=== PATIENT | male | born 1945 | race Caucasian/White ===

== ENCOUNTER 2019-06-01 11:06 | Outpatient (REF) | payer MEDICARE, SELFPAY ==
[2019-06-01 18:54] LABS: ALT 32 U/L (16-63); AST 23 U/L (15-37); Albumin 3.9 g/dL (3.4-5.0); Alkaline Phosphatase 62 U/L (46-116); Anion Gap 11.6 mmol/L (3-11); BUN 11 mg/dL (7-18); Bilirubin, Total 0.7 mg/dL (0.2-1.0); CO2 24.4 mmol/L (21.0-32.0); CREATININE 0.73 mg/dL (0.70-1.30); Calcium 8.9 mg/dL (8.5-10.1); Calculated LDL 95 mg/dL; Chloride 104 mmol/L (98-107); Cholesterol 168 mg/dL (50-200); Glucose 163 mg/dL (70-100); HDL Cholesterol 50 mg/dL (40-60); Potassium 3.6 mmol/L (3.5-5.1); Sodium 140 mmol/L (136-145); Total Protein 6.8 g/dL (6.4-8.2); Triglyceride 117 mg/dL (30-150)
== END 2019-06-01 11:26 ==
LOC: NCHCN 11:06
PROVIDERS: PCP Physician Assistant Medical; Visit Provider Nurse Practitioner
DX: I10 Essential (primary) hypertension (principal); E78.5 Hyperlipidemia, unspecified; I48.0 Paroxysmal atrial fibrillation
CPT/HCPCS: 80053; 80061

== ENCOUNTER 2019-09-18 17:36 | Emergency (ER) | payer MEDICARE, SELFPAY ==
[2019-09-18 17:42] VITALS: BP 163/97; PULSE 79; TEMP 36.5; O2SAT 97
--- NOTE | 2019-09-18 18:32 | DI.RAD_ITS ---
EXAM: XR KNEE LT 4V AP,LAT,HIRA,PAT INDICATION: s/p twist L knee, r/o acute process. COMPARISON: No exams were available for comparison TECHNIQUE: 2D digital imaging was performed. FINDINGS: There is no acute fracture or dislocation. Mild degenerative changes are seen in the knee, particular ly at the patellofemoral joint. There is a large suprapatellar joint effusion. Extensive arterial c alcification is noted. IMPRESSION: 1. No acute fracture or dislocation. 2. Large joint effusion. Internal derangement cannot be excluded. If there is continued concern, an MRI should be considered.
[2019-09-18] MEDS: traMADol 50 MG TAB PO (18:47)
--- NOTE | 2019-09-18 18:52 | ED.GENADUL_ITS ---
Discharge Plan Disposition Patient Disposition: HOME Condition: Stable Discharge Details Chief Complaint: Vascular Clinical Impression: Effusion of left knee Primary Care Provider: Marleny Reyes ED Provider: Kiara Carrasco Home Meds and New Rx's Prescriptions: New tramadol 50 mg tablet 50 mg PO Q6H PRN (Reason: pain) Qty: 10 RF: 0 Continued acetaminophen [Tylenol] 325 MG tablet 325 - 650 mg PO PRN RF: 0 tramadol 50 MG tablet 50 mg PO RF: 0 tamsulosin 0.4 MG capsule 0.4 mg PO DAILY RF: 0 amlodipine 10 MG tablet 10 mg PO DAILY RF: 0 gemfibrozil 600 MG tablet 600 mg PO BID RF: 0 simvastatin 20 MG tablet 20 mg PO DAILY RF: 0 gabapentin 300 MG capsule 300 mg PO BID RF: 0 furosemide 20 MG tablet 20 mg PO PRN RF: 0 cilostazol [Pletal] 50 MG tablet 50 mg PO BID RF: 0 metoprolol tartrate 50 MG tablet 75 mg PO BID RF: 0 hydrochlorothiazide 25 MG tablet 25 mg PO DAILY RF: 0 lorazepam 1 MG tablet 1 mg PO PRN PRNRF: 0 warfarin [Coumadin] 1 MG tablet 5 mg PO .6 DAYS RF: 0 naproxen 500 MG tablet 500 mg PO PRN PRNRF: 0 omega-3 fatty acids 1,000 MG capsule 2,000 mg PO BID RF: 0 esomeprazole magnesium [Nexium] 40 MG capsule,delayed release(DR/EC) 40 mg PO DAILY RF: 0 Discharge Instructions Instructions: Knee Sprain (ED), Swollen Knee Joint (ED) Additional Instructions: Rest, ice and elevate left knee as much as possible. Use the crutches for ambulation. Alternate Tylenol and Motrin as needed and directed for pain. Take the tramadol for pain not relieved with Tylenol or Motrin. Call Dr. Freitas's office on Friday morning to schedule follow-up appointment for reevaluation. Return to the emergency department if you develop any worsening or concerning symptoms such as fever, knee redness, worsening pain or swelling. Referrals: Carlin Freitas MD [ [facility] STAFF PHYSICIAN] - Discharge Data Discharge Date/Time-TO BE ENTERED AT DEPARTURE: 09/18/19 20:10 Discharge Physician: Kiara Carrasco Medical Decision Making 73-year-old male presents with left knee pain that started after wearing lifts in his sneakers today. Patient states he is unsure if he twisted his left knee but does not recall a specific injury. He states shortly after wearing a lift in his sneakers he developed left knee pain. He states the pain is worse with weightbearing and bending his knee. He has not taken any medication for pain. He denies any fever. Left knee reveals suprapatellar tenderness and edema, without bogginess, erythema or excessive warmth to touch. He has significant pain with knee flexion to approximately 30 degrees. There is no ligamentous laxity or instability. No calf tenderness. Neurovascular intact. History and presentation not consistent with septic joint or DVT. Left knee x- ray large did a large joint effusion. An dwight wrap was placed and patient was given crutches. He was offered a dose of oxycodone but declined due to previous reaction. He was given tramadol with some relief as well as prescription for home. Patient was placed on orthopedic follow-up list. He was advised on the importance of rice. He was advised to call Ortho for follow-up and return here with any concerns. Imaging Data Radiologic Study: Radiologist's impression: XR Left Knee Exam date and time: 09/18/2019 6:44 PM Age: 73 years old Clinical indication: Pain; Left; Patient HX: Twisted L knee; Additional info: R/O acute process TECHNIQUE: Imaging protocol: XR Left knee. Views: 4 or more views. COMPARISON: No relevant prior studies available. FINDINGS: Bones/joints: No dislocation. Large joint effusion. Internal derangement is not excluded. Consider MRI for further evaluation. No definite fracture identified. Soft tissues: Normal. Vasculature: Atherosclerosis. IMPRESSION: Large joint effusion. Internal derangement is not excluded. Consider MRI for further evaluation. HPI General Mode of arrival: ambulatory . Date/Time Provider Initiated Documentation: 09/18/19 18:08 . Limitations to Documentation: no limitations . Information obtained by: patient . History of Present Illness 73 year old M presents to the emergency department with the chief complaint of Left knee pain, Patient started experiencing this hour(s) (1) and it has been constant. Rest improves symptom(s), Movement worsens symptoms and Other factors that wo rsen symptoms (Flexion) . Patient notes denies fever/chills, headaches and loss of appetite. Patient did receive the following treatments prior to arrival, none Related Data Home Medications Medication Instructions Recorded Confirmed cilostazol [Pletal] 50 mg PO BID 02/08/13 06/20/13 hydrochlorothiazide 25 mg PO DAILY 02/08/13 06/20/13 lorazepam 1 mg PO PRN PRN 02/08/13 06/20/13 metoprolol tartrate 75 mg PO BID 02/08/13 06/20/13 naproxen 500 mg PO PRN PRN 02/08/13 06/20/13 warfarin [Coumadin] 5 mg PO .6 DAYS 02/08/13 06/20/13 esomeprazole magnesium [Nexium] 40 mg PO DAILY 06/20/13 06/20/13 omega-3 fatty acids 2,000 mg PO BID 06/20/13 06/20/13 acetaminophen [Tylenol] 325 - 650 mg PO PRN tab-cap 06/26/15 amlodipine 10 mg PO DAILY tab-cap 06/26/15 tamsulosin 0.4 mg PO DAILY tab-cap 06/26/15 tramadol 50 mg PO tab-cap 06/26/15 furosemide 20 mg PO PRN 10/13/17 gabapentin 300 mg PO BID tab-cap 10/13/17 gemfibrozil 600 mg PO BID tab-cap 10/13/17 simvastatin 20 mg PO DAILY tab-cap 10/13/17 tramadol 50 mg PO Q6H PRN #10 tab 09/18/19 Previous Rx's Medication Instructions Recorded tramadol 50 mg PO Q6H PRN #10 tab 09/18/19 Allergies Allergy/AdvReac Type Severity Reaction Status Date / Time escitalopram oxalate AdvReac Severe suidial Unverified 12/01/17 14:14 [From Lexapro] ideations General Stated Complaint: Vascular LANA: 3 Review of Systems All systems reviewed & are unremarkable except as noted in HPI and below PFSH Medical History Atrial fibrillation (Chronic) GERD (gastroesophageal reflux disease) (Chronic) HTN (hypertension) (Chronic) Hx of hyperlipidemia (Acute) Osteoarthritis (Chronic) Peripheral vascular disease (Chronic) Surgical History History of surgery on extremity (Acute) bypass/vascular Social History Smoking/Tobacco Use Status: Former Tobacco Use Drug use: Never Do you feel safe at home: Yes Exam Const General: cooperative, healthy appearing and no acute distress HENMT Head: normal to inspection Mouth: oral mucosae normal Eyes General: appearance normal, both eyes and all related structures Neck Neck: normal visual inspection Resp Effort & Inspection: normal respiratory effort and able to speak in complete sentences Cardio Rate: regular rate Skin General skin exam: no rashes or lesions noted Neuro General: alert, awake and oriented x3 Motor: muscle tone normal throughout Extrem Knee images: 1. Moderate suprapatellar edema. No tenderness to palpation. No erythema, ecchymosis, rash, lesions. Does not feel hot to touch in comparison to right knee. No rash or lesions. Psych Appearance: grossly normal Affect: normal affect Course Vital Signs Vital signs: Vital Signs Temperature 97.7 F 09/18/19 17:42 Pulse 79 09/18/19 17:42 Blood Pressure 163/97 H 09/18/19 17:42 Pulse Oximetry 97 09/18/19 17:42 Temperature 97.7 F 09/18/19 17:42 Temperature Source Skin 09/18/19 17:42 Pulse 79 09/18/19 17:42 Respiratory Effort 09/18/19 18:04 Respiratory Depth Normal 09/18/19 18:04 Respiratory Pattern Normal 09/18/19 18:04 Blood Pressure 163/97 H 09/18/19 17:42 Blood Pressure Position Supine 09/18/19 17:42 Pulse Oximetry 97 09/18/19 17:42 Oxygen Delivery Method Room Air 09/18/19 17:42 Oxygen Flow Rate 0 09/18/19 17:42 Pain Level 8 09/18/19 18:04
--- NOTE | 2019-09-18 19:05 | DI.VRAD_ITS ---
PROCEDURE INFORMATION: Exam: XR Left Knee Exam date and time: 09/18/2019 6:44 PM Age: 73 years old Clinical indication: Pain; Left; Patient HX: Twisted L knee; Additional info: R/O acute process TECHNIQUE: Imaging protocol: XR Left knee. Views: 4 or more views. COMPARISON: No relevant prior studies available. FINDINGS: Bones/joints: No dislocation. Large joint effusion. Internal derangement is not excluded. Consider MRI for further evaluation. No definite fracture identified. Soft tissues: Normal. Vasculature: Atherosclerosis. IMPRESSION: Large joint effusion. Internal derangement is not excluded. Consider MRI for further evaluation. Dictated and Authenticated by: Ashley Butler MD. Ordering:PARADISE Craig MD
[2019-09-18] MEDS: oxyCODONE 5 MG TAB PO (19:48)
[2019-09-18 20:07] VITALS: BP 132/78; PULSE 89; RESP 18; TEMP 37.2; O2SAT 99
== END 2019-09-18 20:10 | disposition home or self-care (01) ==
PROVIDERS: Emergency Provider Physician Assistant; PCP Physician Assistant Medical
DX: M25.462 Effusion, left knee (principal); M25.562 Pain in left knee; I10 Essential (primary) hypertension
CPT/HCPCS: 99283; 73564; E0114

== ENCOUNTER → 2019-09-29 10:23 | Outpatient (BNVA) | payer MEDICARE, SELFPAY | PROVIDERS: PCP Physician Assistant Medical; Referring Provider Nurse Practitioner; Visit Provider Orthopaedic Surgery | DX: M23.92 Unspecified internal derangement of left knee (principal) | CPT/HCPCS: 99201; 99213 ==

== ENCOUNTER 2020-01-10 10:30 | Outpatient (CLI) | payer MEDICARE, SELFPAY | END 2020-01-10 10:50 | PROVIDERS: PCP Nurse Practitioner; Visit Provider Internal Medicine Cardiovascular Disease | DX: I48.20 Chronic atrial fibrillation, unspecified (principal); I73.9 Peripheral vascular disease, unspecified; I10 Essential (primary) hypertension | CPT/HCPCS: 99203; 99214; 93005; 93010 ==

== ENCOUNTER 2020-01-19 02:00 | Outpatient (CLI) | payer MEDICARE, SELFPAY ==
--- NOTE | 2020-01-19 12:33 | DI.US_ITS ---
APPROVED REPORT EXAM: Comprehensive 2D, Doppler, and color-flow Echocardiogram Patient Location: Out-Patient Medical Detail Representative: Jesusita Maldonado RDCS (AE) Indications: Atrial Fibrillation Echo Enhancing Agent Indication: Endocardial border delineation Agent(s) / Amount(s) Used: Definity 4.0 cc Other Information Study Quality: Adequate Conclusion Left Ventricle : The left ventricle is normal size. Apical aneurysm is present. The left ventricular systolic function is normal. The left ventricular ejection fraction is within the normal range. Left ventricular systolic function is mildly decreased. There is normal left ventricular wall thickness. There is akinesis of the apex associated with aneurysm. The left ventricular diastolic function is n ormal. LVEF is 40-44%. Right Ventricle : The right ventricle is normal size. The right ventricular systolic function is norm al. The RVSP is 37.7 mmHg. Atria : Left atrium is mildly dilated. Right atrium is mildly dilated. Valves: There are no hemodynamically significant valvular lesions. Great Vessels : IVC is normal in size and collapses >50% with inspiration. There is no prior echocardiogram available for comparison. Wall motion Left Ventricle The left ventricle is normal size. Apical aneurysm is present. The left ventricular systolic function is normal. The left ventricular ejection fraction is within the normal range. Left ventricular systo lic function is mildly decreased. There is normal left ventricular wall thickness. There is akinesis of the apex associated with aneurysm. The left ventricular diastolic function is normal. There is no ventricular septal defect visualized. Echo contrast is indicated. LVEF is 40-44%. Right Ventricle The right ventricle is normal size. The right ventricular systolic function is normal. The RVSP is 37 .7 mmHg. Atria Left atrium is mildly dilated. Right atrium is mildly dilated. Aortic Valve Aortic valve is calcified. Aortic valve is probably trileaflet. There is no aortic valvular stenosis. Trace aortic regurgitation. Mitral Valve Moderate mitral annular calcification. No evidence of mitral valve stenosis. Trace mitral regurgitati on. Tricuspid Valve The tricuspid valve is normal in structure. There is no tricuspid valve stenosis. Mild to moderate tr icuspid regurgitation. Pulmonic Valve The pulmonary valve is normal in structure. There is no pulmonic valvular stenosis. Mild pulmonic reg urgitation. Great Vessels The aortic root is normal in size. The ascending aorta is normal in size. The ascending aorta size is normal. IVC is normal in size and collapses >50% with inspiration. Pericardium There is no pericardial effusion. There is no pleural effusion. 2D Dimensions IVSD d PLAX 1.16 cm M: 0.6-1.2 LV Vol A2C d MOD 99.0 mL LVPW d PLAX 1.12 cm M: 0.6 - 1.2 LV Vol A4C d MOD 70.4 mL LVID d PLAX 4.41 cm M: 4.2 - 5.8 LA vol/ BSA A2C s A-L 34.2 mL/m2 LVDs 2.90 cm M: 2.5 - 4.0 LA vol/ BSA A4C s A-L 41.8 mL/m2 Ao Root d 3.02 cm M: 3.1 - 3.7 LA Vol/ BSA Biplane s A-L 41.0 mL/m2 RA Area A4C 21.05 cm2 LA Area A4C s MOD 24.40 cm2 RA Vol/ BSA A4C s A-L 33.6 mL/m2 LA Area A2C s MOD 20.39 cm2 Ao Asc Diam d 3.29 cm M: 2.6 - 3.4 LV EF A4C MOD 44.6 % LV EF Teichholz 62.8 % LV EF A2C MOD 45.5 % LVEF (Godwin's) 41.62 % M: 52 - 72 LV EF Biplane MOD 41.6 % LV Volume 65.93 mL M: 62 - 150 SV 55.30 mL LV Volume Index 34.70 mL/m2 M: 34 - 74 SV Index 29.10 mL/m2 LV Vol Biplane MOD 86.4 mL FS 33.75 % M-Mode TAPSE 1.79 cm (M/F) >1.7 LV Diastology MV E' medial 0.081 (>0.07 m/s) MV E Vmax 1.09 (0.4-1.3 m/s) LV E/e MED 13.35 (<14) MV E' lateral 0.112 (>0.1 m/s) LV E/e LAT 9.65 (<14) MV E/E' medial 13.37 MV E/E' lateral 9.69 Aortic Valve LVOT Area 2.91 cm2 AoV Area Vmax 2.09 cm2 LVOT Vmax 0.90 m/s AoV Area/ BSA (Vmax) 1.10 cm2/m2 LVOT Mean Ivan. 0.58 m/s [place] Mean Ivan. 1.89 cm2 LVOT Peak Grad 3.3 mmHg [place] Mean Ivan. Index 1.00 cm2/m2 LVOT Mean Grad 1.6 mmHg LVOT VTI 0.191 m LVOT Diam s 1.90 cm (M/F) 1.5-2.5 AoV Vmax 1.25 (0.5-1.3 m/s) Velocity Ratio 0.72 AoV Mean Ivan. 0.89 m/s AoV Peak Grad 6.3 mmHg LVOT SV 55.57 mL AoV Mean Grad 3.5 (<5 mmHg) AoV VTI 0.261 (0.18-0.25 m) AoV Area VTI 2.13 (2.5-4.5 cm2) AoV Area/ BSA (VTI) 1.12 cm/m2 Mitral Valve MV DT 202 (160-240 msec) MV PHT 58 msec MV Area PHT 3.76 cm2 Pulmonary Valve PV Vmax 0.80 (0.5-1.5 m/s) RVOT Peak Gr. 0.96 mmHg PV Peak Grad 2.6 mmHg RVOT Mean Gr. 0.55 mmHg PV Mean Grad 1.1 mmHg RVOT VTI 0.118 m PV VTI 0.135 m RVOT Vmax 0.49 m/s Tricuspid Valve TR Peak Grad 34.7 mmHg TR Vmax 2.95 m/s RA Pressure 3.00 mmHg RVSP (TR) 37.7 mmHg
== END 2020-01-19 02:20 ==
PROVIDERS: PCP Nurse Practitioner; Visit Provider Internal Medicine Cardiovascular Disease
DX: I48.91 Unspecified atrial fibrillation (principal); I50.20 Unspecified systolic (congestive) heart failure; I10 Essential (primary) hypertension
CPT/HCPCS: 93306; C8929

== ENCOUNTER → 2020-05-17 10:37 | Outpatient (BNVA) | payer MEDICARE, SELFPAY | PROVIDERS: PCP Nurse Practitioner; Referring Provider Nurse Practitioner; Visit Provider Orthopaedic Surgery | DX: M23.92 Unspecified internal derangement of left knee (principal); I10 Essential (primary) hypertension | CPT/HCPCS: 20610; 99213; J1040 ==

== ENCOUNTER 2020-05-19 15:37 | Outpatient (RCR) | payer MEDICARE, SELFPAY | END 2020-06-07 23:59 | disposition home or self-care (01) | LOC: CR 15:37 | PROVIDERS: PCP Nurse Practitioner; Visit Provider Family Medicine | DX: R69 Illness, unspecified (principal) ==

== ENCOUNTER 2020-05-22 11:12 | Outpatient (CLI) | payer MEDICARE, SELFPAY ==
[2020-05-23 23:57] LABS: COVID-19 RT-PCR Result NEGATIVE (Negative)
== END 2020-05-22 11:32 ==
PROVIDERS: PCP Nurse Practitioner; Visit Provider Family Medicine
DX: Z11.59 Encounter for screening for other viral diseases (principal); Z01.818 Encounter for other preprocedural examination
CPT/HCPCS: U0003

== ENCOUNTER → 2020-05-30 08:57 | Outpatient (BNVA) | payer MEDICARE, SELFPAY | PROVIDERS: PCP Nurse Practitioner; Referring Provider Nurse Practitioner; Visit Provider Internal Medicine Cardiovascular Disease | DX: I25.10 Atherosclerotic heart disease of native coronary artery without angina pectoris (principal); I10 Essential (primary) hypertension; I48.19 Other persistent atrial fibrillation; Z98.890 Other specified postprocedural states | CPT/HCPCS: 99214 ==

== ENCOUNTER 2020-06-01 10:07 | Outpatient (REF) | payer MEDICARE, SELFPAY ==
[2020-06-01 19:57] LABS: ALT 25 U/L (16-63); AST 19 U/L (15-37); Albumin 3.9 g/dL (3.4-5.0); Alkaline Phosphatase 79 U/L (46-116); Anion Gap 7.5 mmol/L (3-11); BUN 10 mg/dL (7-18); Bilirubin, Total 0.6 mg/dL (0.2-1.0); CO2 28.5 mmol/L (21.0-32.0); CREATININE 0.71 mg/dL (0.70-1.30); Calcium 9.1 mg/dL (8.5-10.1); Calculated LDL 88 mg/dL (<100); Chloride 106 mmol/L (98-107); Cholesterol 162 mg/dL (<200); Glucose 112 mg/dL (74-106); HDL Cholesterol 55 mg/dL (40-60); Sodium 142 mmol/L (136-145); Total Protein 6.9 g/dL (6.4-8.2); Triglyceride 95 mg/dL (<150)
[2020-06-02 22:14] LABS: PSA, Screening 0.6 ng/mL (0.0-6.5)
[2020-06-05 12:05] LABS: Hepatitis C Ab w Rflx HCV PCR Negative (Negative)
== END 2020-06-01 10:27 ==
LOC: NCHCN 10:07
PROVIDERS: PCP Nurse Practitioner; Visit Provider Nurse Practitioner
DX: I10 Essential (primary) hypertension (principal); E78.5 Hyperlipidemia, unspecified; I25.10 Atherosclerotic heart disease of native coronary artery without angina pectoris; Z12.5 Encounter for screening for malignant neoplasm of prostate; Z11.59 Encounter for screening for other viral diseases
CPT/HCPCS: 80053; 80061; 84153; 86803

== ENCOUNTER 2020-06-07 13:17 | Outpatient (RCR) | payer MEDICARE, SELFPAY | END 2020-06-07 23:59 | disposition home or self-care (01) | LOC: CR 13:17 | PROVIDERS: PCP Nurse Practitioner; Visit Provider Family Medicine | DX: Z95.1 Presence of aortocoronary bypass graft (principal); Z51.89 Encounter for other specified aftercare; Z98.890 Other specified postprocedural states | CPT/HCPCS: S9472 ==

== ENCOUNTER → 2020-07-05 09:53 | Outpatient (BNVA) | payer MEDICARE, SELFPAY | PROVIDERS: PCP Nurse Practitioner; Referring Provider Nurse Practitioner; Visit Provider Orthopaedic Surgery | DX: M23.92 Unspecified internal derangement of left knee (principal); Z98.890 Other specified postprocedural states; I10 Essential (primary) hypertension | CPT/HCPCS: 99212; 99213 ==

== ENCOUNTER 2020-07-05 11:00 | Outpatient (RCR) | payer MEDICARE, SELFPAY | END 2020-07-08 23:59 | disposition home or self-care (01) | LOC: CR 11:00 | PROVIDERS: PCP Nurse Practitioner; Visit Provider Family Medicine | DX: Z95.1 Presence of aortocoronary bypass graft (principal); Z51.89 Encounter for other specified aftercare; I25.3 Aneurysm of heart | CPT/HCPCS: S9472 ==

== ENCOUNTER 2020-07-14 11:00 | Outpatient (RCR) | payer MEDICARE, SELFPAY | END 2020-08-07 23:59 | disposition home or self-care (01) | LOC: CR 11:00 | PROVIDERS: PCP Nurse Practitioner; Visit Provider Family Medicine | DX: Z95.1 Presence of aortocoronary bypass graft (principal); Z51.89 Encounter for other specified aftercare; I25.3 Aneurysm of heart | CPT/HCPCS: S9472 ==

== ENCOUNTER → 2020-07-24 10:05 | Outpatient (BNVA) | payer MEDICARE, SELFPAY | PROVIDERS: PCP Nurse Practitioner; Referring Provider Nurse Practitioner; Visit Provider Internal Medicine Cardiovascular Disease | DX: I25.10 Atherosclerotic heart disease of native coronary artery without angina pectoris (principal); I10 Essential (primary) hypertension; I48.91 Unspecified atrial fibrillation | CPT/HCPCS: 99213 ==

== ENCOUNTER → 2020-09-28 10:50 | Outpatient (BNVA) | payer MEDICARE, SELFPAY | PROVIDERS: PCP Nurse Practitioner; Referring Provider Nurse Practitioner; Visit Provider Internal Medicine Cardiovascular Disease | DX: I25.10 Atherosclerotic heart disease of native coronary artery without angina pectoris (principal); I73.9 Peripheral vascular disease, unspecified; I10 Essential (primary) hypertension; I48.91 Unspecified atrial fibrillation | CPT/HCPCS: 99213 ==

== ENCOUNTER 2020-11-23 12:49 | Outpatient (CLI) | payer MEDICARE, SELFPAY ==
--- NOTE | 2020-11-23 10:15 | DI.RAD_ITS ---
EXAM: XR FOOT LT COMPLETE CLINICAL HISTORY: foot pain. TECHNIQUE: 2D digital imaging was performed. COMPARISON: CR RIGHT FOOT LIMITED from 12/23/2013 CR LEFT FOOT LIMITED from 12/23/2013 CR XR FOOT RT COMPLETE from 11/23/2020 FINDINGS: Three views of the left foot compared to December 2013. Again noted is prominent hallux valgus. There is a healed midshaft fracture of the 3rd metatarsal ag ain noted. No acute fractures nor diastasis of the Lisfranc joint. Vascular calcification is noted. IMPRESSION: DATA REPOSITORY: RADIATION DOSE DELIVERED:
--- NOTE | 2020-11-23 10:15 | DI.RAD_ITS ---
EXAM: XR FOOT RT COMPLETE CLINICAL HISTORY: foot pain. TECHNIQUE: 2D digital imaging was performed. COMPARISON: CR RIGHT FOOT LIMITED from 12/23/2013 FINDINGS: Three views compared to December 2013 Again noted is prominent hallux valgus and medial deviation of the 2nd toe phalanges with subluxation of the metatarsophalangeal joint of the 2nd toe noted. There is no evidence of fracture or diastasis of the Lisfranc joint. Vascular calcification is noted . IMPRESSION: DATA REPOSITORY: RADIATION DOSE DELIVERED:
== END 2020-11-23 12:50 | disposition home or self-care (01) ==
LOC: DIORS 12:49
PROVIDERS: PCP Nurse Practitioner; Referring Provider Nurse Practitioner; Visit Provider Student in an Organized Health Care Education/Training Program
DX: M20.11 Hallux valgus (acquired), right foot (principal); M20.12 Hallux valgus (acquired), left foot; Z87.81 Personal history of (healed) traumatic fracture; M79.671 Pain in right foot; M79.672 Pain in left foot
CPT/HCPCS: 99213; 73630

== ENCOUNTER → 2021-01-12 10:58 | Outpatient (BNVA) | payer MEDICARE, SELFPAY | PROVIDERS: PCP Nurse Practitioner; Referring Provider Nurse Practitioner; Visit Provider Internal Medicine Cardiovascular Disease | DX: I25.10 Atherosclerotic heart disease of native coronary artery without angina pectoris (principal); I10 Essential (primary) hypertension; I48.21 Permanent atrial fibrillation | CPT/HCPCS: 99214; 99213 ==

== ENCOUNTER 2021-02-01 09:26 | Outpatient (REF) | payer MEDICARE, SELFPAY ==
[2021-02-01 15:26] LABS: Abs Immature Grans 0.02 10^3/uL (0.0-0.06); Absolute Basophil Count 0.07 10^3/uL (0.0-0.2); Absolute Eosinophil Count 0.28 10^3/uL (0.0-0.7); Absolute Lymphocyte Count 1.67 10^3/uL (1.2-3.4); Absolute Monocyte Count 0.66 10^3/uL (0.1-0.8); Absolute Neutrophil Count 4.32 10^3/uL (1.2-6.7); HCT 40.9 % (40.0-50.0); Immature Grans % 0.3; Lymphocytes % 23.8; MCH 31.7 pg (27.0-33.0); MCHC 34.2 % (32.0-36.0); MCV 92.7 fL (80-95); MPV 10.2 fL (8.0-11.0); Monocytes % 9.4; Neutrophils % 61.5; Nucleated RBC 0 %; Platelet Count 263 10^3/uL (130-400); RBC 4.41 10^6/uL (4.36-5.78); RDW 13.2 % (11.8-14.1); RDW-SD 45.6 fL; WBC 7.02 10^3/uL (4.4-10.8)
[2021-02-01 17:08] LABS: ALT 22 U/L (16-63); AST 22 U/L (15-37); Alkaline Phosphatase 84 U/L (46-116); Anion Gap 13.7 mmol/L (3-11); BUN 11 mg/dL (7-18); Bilirubin, Total 0.7 mg/dL (0.2-1.0); CO2 23.3 mmol/L (21.0-32.0); CREATININE 0.9 mg/dL (0.70-1.30); Chloride 107 mmol/L (98-107); Glucose 113 mg/dL (74-106); Potassium 4.4 mmol/L (3.5-5.1); Sodium 144 mmol/L (136-145)
== END 2021-02-01 09:27 | disposition home or self-care (01) ==
LOC: NCHCN 09:26
PROVIDERS: PCP Nurse Practitioner; Visit Provider Nurse Practitioner
DX: R10.2 Pelvic and perineal pain (principal); R10.9 Unspecified abdominal pain
CPT/HCPCS: 80053; 85025

== ENCOUNTER 2021-02-12 02:25 | Outpatient (CLI) | payer MEDICARE, SELFPAY ==
--- NOTE | 2021-02-12 | DI.CT_ITS ---
Exam(s) CT ABDOMEN PELVIS W EXAM: CT ABDOMEN PELVIS W CLINICAL HISTORY: PELVIC PAIN, R10.2,ABD PAIN, R10.9 TECHNIQUE: Imaging Protocol: Axial computed tomography images with coronal and sagittal reformatted images were created and reviewed CONTRAST MATERIAL: Intravenous: Omnipaque 350 Contrast volume:100 mL Oral: Yes COMPARISON: No exams were available for comparison FINDINGS: ABDOMEN: Lung Bases: Bilateral basilar scarring or atelectasis. Small hiatal hernia. Coronary artery calcifi cations. Mild cardiomegaly. Liver: Normal density. No measurable mass. There is a tiny hypodensity in the liver. It is too small for further characterization, but likely reflects a small cyst. Portal, Superior Mesenteric, and Splenic Veins: Unremarkable. Gallbladder and Biliary Tract: No radiodense calculus or dilation. Pancreas: Normal density, no abnormal calcifications or inflammatory process. Spleen: Normal. Adrenals: There is a 1.5 cm right adrenal nodule. Kidneys: Normal size, contour and axis. No radiodense stones or obstructive uropathy. There are tiny hypodensities in the kidneys bilaterally. They are too small for further characterization, but likel y reflect small cysts. No further follow-up is recommended. Abdominal Aorta: Abdominal portion non-dilated. Dense atherosclerosis is noted. There is a 3.9 x 3.3 cm infrarenal abdominal aortic aneurysm. There is a 2nd aneurysm in the distal abdominal aorta just proximal to the bifurcation measuring 3.4 x 3.1 cm. There is a right iliac artery stent. Bowel: No evidence of bowel obstruction. A normal appendix is visualized. There is mild thickening of the wall of the distal stomach. An infectious or inflammatory gastritis cannot be excluded. Plea se correlate clinically. There is diverticulosis throughout the colon but no evidence of acute diver ticulitis. Peritoneal Cavity: No ascites, collection or mesenteric inflammatory response. No free air. Lymph Nodes: Within normal limits. Bones: Within normal limits for the patient's age. Soft Tissues: Unremarkable. PELVIS: Bladder: Symmetric distention, no gross wall thickening. Reproductive Organs: There is an enlarged prostate gland. Lymph Nodes: Within normal limits. Bones: Within normal limits for the patient's age. IMPRESSION: 1. Two infrarenal abdominal aortic aneurysms. The more superior measures 3.9 x 3.4 cm. The more dis jose daniel at the level of the bifurcation measures 3.4 x 3.1 cm. 2. Mild thickening of the wall of the distal stomach. While this may represent an infectious or infl ammatory gastritis, is other etiologies cannot be excluded. Please correlate clinically. 3. 1.5 cm right adrenal nodule. Follow-up with a non contrast CT of the abdomen or CT of the abdomen using the adrenal protocol is recommended. 4. Extensive colonic diverticulosis but no evidence of a diverticulitis. 5. Enlarged prostate gland. RADIATION DOSE DELIVERED: 802.93mGy.cm Total DLP DATA REPOSITORY: All CT scans at this facility are submitted to the National Radiology Data Registry (NRDR) Dose Index Registry (DIR) with the [employer] (A[employer]). RADIATION OPTIMIZATION: All CT scans at this facility use at least one of these dose optimization te chniques: automated exposure control; mA and/or kV adjustment per patient size (includes targeted exa ms where dose is matched to clinical indication); or iterative reconstruction.
[2021-02-12] MEDS: Breeza Beverage 473 ML BTL PO ×2 (09:13→09:14)
[2021-02-12] MEDS: Omnipaque 350 MG/ML 100 ML BTL IV (10:34)
[2021-02-12] MEDS: Normal Saline - Diluent 50 ML VIAL IV (10:35)
== END 2021-02-12 02:45 ==
PROVIDERS: PCP Nurse Practitioner; Visit Provider Nurse Practitioner
DX: R10.2 Pelvic and perineal pain (principal); R10.9 Unspecified abdominal pain; I71.4 Abdominal aortic aneurysm, without rupture; D35.01 Benign neoplasm of right adrenal gland; N40.0 Benign prostatic hyperplasia without lower urinary tract symptoms; K31.89 Other diseases of stomach and duodenum
CPT/HCPCS: 74177; J3490

== ENCOUNTER → 2021-03-01 10:56 | Outpatient (BNVA) | payer MEDICARE, SELFPAY | PROVIDERS: PCP Nurse Practitioner; Referring Provider Nurse Practitioner; Visit Provider Urology | DX: R10.2 Pelvic and perineal pain (principal); N40.1 Benign prostatic hyperplasia with lower urinary tract symptoms; Z98.890 Other specified postprocedural states | CPT/HCPCS: 81003; 99215; G2212 ==

== ENCOUNTER 2021-03-02 04:13 | Outpatient (CLI) | payer MEDICARE, SELFPAY ==
--- NOTE | 2021-03-02 08:00 | DI.CT_ITS ---
Exam(s) CT ABDOMEN PELVIS WO/W EXAM: CT ABDOMEN PELVIS WO/W TECHNIQUE: Imaging Protocol: Axial computed tomography images with coronal and sagittal reformatted images were created and reviewed CONTRAST MATERIAL: Intravenous: Omnipaque 350 Contrast volume:structured data in ml Contrast route:I V - Oral:yes / no COMPARISON: CT CT ABDOMEN PELVIS W from 02/12/2021 FINDINGS: ABDOMEN: Lung Bases: Mild basilar scarring versus atelectasis. Cardiomegaly. Coronary artery calcifications. Liver: Normal density. No measurable mass. Gallbladder and biliary tract: No radiodense calculus or dilation. Pancreas: Normal density, no abnormal calcifications or inflammatory process. Spleen: Normal. Kidneys: Normal size, contour and axis. No radiodense stones or obstructive uropathy. No masses seen. Tiny renal cysts. Adrenal glands: Noncontrast images demonstrate a circumscribed low-density, negative 15 Houn[place] u nits, consistent with an adenoma. Lymph nodes: Within normal limits. Abdominal Aorta: Abdominal aortic aneurysms and severe atherosclerotic changes, stable. PELVIS: Bladder: Symmetric distention, no gross wall thickening. Bowel: Diverticulosis, prominent throughout the colon. No diverticulitis. Normal appendix. No smal l bowel distension. Stomach is not well distended and not well evaluated. Peritoneal cavity: No ascites, collection or mesenteric inflammatory response. Bones: Degenerative disc changes. Reproductive organs: Enlarged prostate. IMPRESSION: 1.5 centimeter right adrenal nodule is consistent with an adenoma. RADIATION DOSE DELIVERED: Total DLP DATA REPOSITORY: All CT scans at this facility are submitted to the National Radiology Data Registry (NRDR) Dose Index Registry (DIR) with the [employer] (ACR). RADIATION OPTIMIZATION: All CT scans at this facility use at least one of these dose optimization te chniques: automated exposure control; mA and/or kV adjustment per patient size (includes targeted exa ms where dose is matched to clinical indication); or iterative reconstruction.
== END 2021-03-02 04:33 ==
PROVIDERS: PCP Nurse Practitioner; Visit Provider Nurse Practitioner
DX: E27.8 Other specified disorders of adrenal gland (principal); I71.4 Abdominal aortic aneurysm, without rupture
CPT/HCPCS: 74178

== ENCOUNTER → 2021-03-08 11:22 | Outpatient (BNVA) | payer MEDICARE, SELFPAY | PROVIDERS: PCP Nurse Practitioner; Referring Provider Nurse Practitioner; Visit Provider Surgery | DX: K21.9 Gastro-esophageal reflux disease without esophagitis (principal); R10.30 Lower abdominal pain, unspecified; I25.10 Atherosclerotic heart disease of native coronary artery without angina pectoris; I73.9 Peripheral vascular disease, unspecified; I10 Essential (primary) hypertension; I71.4 Abdominal aortic aneurysm, without rupture; Z98.890 Other specified postprocedural states | CPT/HCPCS: 99215; 99243 ==

== ENCOUNTER 2021-04-18 13:56 | Outpatient (CLI) | payer MEDICARE, SELFPAY ==
--- NOTE | 2021-04-18 13:30 | DI.RAD_ITS ---
Exam(s) XR HIP RT COMPLETE AP PELVIS EXAM: XR HIP RT COMPLETE AP PELVIS INDICATION: right anterior hip pain, M25.551. COMPARISON: CR BILATERAL HIPS ADULT from 11/12/2016 TECHNIQUE: 2D digital imaging was performed. FINDINGS: There is stable mild bilateral hip joint space narrowing and bilateral acetabular spurring. The femo ral heads appear intact. Degenerative changes are again noted at the lower lumbar spine. Prominent vascular calcifications and bilateral iliac stents are noted. IMPRESSION: Stable degenerative changes of both hips. DATA REPOSITORY: RADIATION DOSE DELIVERED:
== END 2021-04-18 14:16 ==
PROVIDERS: PCP Nurse Practitioner; Visit Provider Surgery
DX: M16.0 Bilateral primary osteoarthritis of hip (principal)
CPT/HCPCS: 73502

== ENCOUNTER → 2021-05-24 11:06 | Outpatient (BNVA) | payer MEDICARE, SELFPAY | PROVIDERS: PCP Nurse Practitioner; Referring Provider Nurse Practitioner; Visit Provider Internal Medicine Cardiovascular Disease | DX: I25.10 Atherosclerotic heart disease of native coronary artery without angina pectoris (principal); I48.21 Permanent atrial fibrillation; I73.9 Peripheral vascular disease, unspecified; I10 Essential (primary) hypertension; Z79.01 Long term (current) use of anticoagulants | CPT/HCPCS: 99214; 99213 ==

== ENCOUNTER → 2021-05-31 09:55 | Outpatient (BNVA) | payer MEDICARE, SELFPAY | PROVIDERS: PCP Nurse Practitioner; Referring Provider Nurse Practitioner; Visit Provider Surgery | DX: K21.9 Gastro-esophageal reflux disease without esophagitis (principal); R10.31 Right lower quadrant pain; Z86.39 Personal history of other endocrine, nutritional and metabolic disease; I25.3 Aneurysm of heart; I73.9 Peripheral vascular disease, unspecified; I10 Essential (primary) hypertension | CPT/HCPCS: 99212; 99214 ==

== ENCOUNTER 2021-06-04 02:52 | Outpatient (CLI) | payer MEDICARE, SELFPAY ==
[2021-06-04 10:33] LABS: Source Nasal/Nares
[2021-06-04 13:33] LABS: COVID-19 PCR Negative (Negative)
== END 2021-06-04 02:53 | disposition home or self-care (01) ==
LOC: LBO 02:53
PROVIDERS: PCP Nurse Practitioner; Visit Provider Surgery
DX: Z20.822 Contact with and (suspected) exposure to COVID-19 (principal); Z01.818 Encounter for other preprocedural examination
CPT/HCPCS: 87635

== ENCOUNTER 2021-06-05 07:57 | Day surgery (SDC) | payer MEDICARE, SELFPAY ==
--- NOTE | 2021-06-05 07:15 | ANES.PREOP_ITS ---
General Info Date of Service Date Performed: 06/05/21 Height: 5 ft 7 in Weight: 78.018 kg Body Mass Index (BMI): 26.9 Surgical Procedure: Operation Date: 06/05/21 09:35 Proposed Procedures Side Surgeon p Colonoscopy/Gastroscopy Patito Zamora, Meds Allergies and Home Medications Allergies Allergy/AdvReac Type Severity Reaction Status Date / Time chlorpheniramine Allergy Intermediate rash Verified 06/05/21 08:20 [From Tussionex] hydrocodone [From Tussionex] Allergy Mild rash Verified 06/05/21 08:20 oxycodone Allergy Verified 06/05/21 08:20 escitalopram oxalate AdvReac Severe suidial Verified 06/05/21 08:20 [From Lexapro] ideations tramadol AdvReac Mild Verified 06/05/21 08:20 Home Medication Medication Instructions Recorded lorazepam 1 mg PO PRN PRN 02/08/13 acetaminophen [Tylenol] 325 - 650 mg PO PRN tab-cap 06/26/15 tamsulosin 0.4 mg PO DAILY tab-cap 06/26/15 gemfibrozil 600 mg PO BID tab-cap 10/13/17 simvastatin 20 mg PO DAILY tab-cap 10/13/17 cholecalciferol (vitamin D3) 75 75 mcg PO DAILY 01/10/20 mcg (3,000 unit) tablet mecobalamin (vitamin B12) 1,000 1,000 mcg SL DAILY 01/10/20 mcg disintegrating tablet,sublingual multivitamin 1 tab PO DAILY 01/10/20 omeprazole 20 mg capsule,delayed 20 mg PO DAILY 01/10/20 release metoprolol tartrate 50 mg tablet 50 mg PO BID tab 01/12/21 amlodipine 10 mg tablet 5 mg PO DAILY tab-cap 02/28/21 aspirin 81 mg tablet,delayed 81 mg PO DAILY 02/28/21 release warfarin 3 mg tablet See Rx Instructions PO DAILY tab 03/08/21 gabapentin 100 mg capsule 100 mg PO BID 05/24/21 bisacodyl 5 mg tablet,delayed 5 mg PO ONCE #4 tab 05/31/21 release polyethylene glycol 3350 17 238 g PO ONCE #238 g 05/31/21 gram/dose oral powder Current Visit Medications: Current Medications Generic Name Dose Route Start Last Admin Trade Name Freq PRN Reason Stop Dose Admin Ringer's Solution 1,000 mls @ 80 mls/hr 06/05/21 06:00 IV 07/04/21 23:59 [facility] IV Miscellaneous Supplies 1 each 06/05/21 06:00 Iv Access IV 07/04/21 23:59 DIRECTED TERESA Sodium Chloride 0 ml 06/05/21 06:00 Normal Saline Flush 10 Ml Syr IV 07/04/21 23:59 PRN PRN Sodium Chloride 0 ml 06/05/21 06:00 Normal Saline 10 Ml Vial IJ 07/04/21 23:59 DIRECTED PRN Sterile Water 0 ml 06/05/21 06:00 Water,Injection,Sterile 10 Ml Vial IJ 07/04/21 23:59 DIRECTED PRN PFSH Active Problems Active Problems: Problem Status Onset Code Abnormal CT of the abdomen R93.5 RLQ abdominal pain R10.31 Hip pain, right M25.551 GERD (gastroesophageal reflux disease) K21.9 Hx of hyperlipidemia Z86.39 BPH loc w urin obs/LUTS N40.1 Hallux valgus (acquired), right foot M20.11 Hallux valgus (acquired), left foot M20.12 Arthritis of right hip 10/13/17 M16.11 Atherosclerotic cardiovascular disease I25.10 Left ventricular aneurysm I25.3 Peripheral vascular disease I73.9 HTN (hypertension) I10 Atrial fibrillation I48.91 Internal derangement of left knee M23.92 Medical History Medical History (Updated 06/04/21 @ 21:02 by Patito Zamora DO) AAA (abdominal aortic aneurysm) 02/2021: 3.9cm AAA Abdominal pain Adrenal nodule Anxiety Arthritis of right hip (10/13/17) Atherosclerotic cardiovascular disease Atrial fibrillation BPH loc w urin obs/LUTS CAD (coronary artery disease) 03/2020 CABG X6, LV aneurysm repair, RANDELL removal Elevated hemoglobin A1c Enlarged prostate GERD (gastroesophageal reflux disease) HTN (hypertension) Hx of hyperlipidemia Osteoarthritis Pelvic pain Peripheral vascular disease [place] [facility] [place]iofemoral [place]arte[place] with patch angioplasty, Left femoral->peroneal bypass. 11/24/13 [facility] [place] [place] external iliac artery stentgraft placed, ligation left leg bypass graft fistula. Surgical History Surgical History (Updated 06/05/21 @ 08:37 by Saima Smalls RN) History of open heart surgery History of surgery on extremity bypass/vascular History of tonsillectomy and adenoidectomy Hx of colonoscopy Hx of hernia repair x5 Tobacco Smoking/Tobacco Use Status: Former Tobacco Use Alcohol Alcohol Intake: current Alcohol intake frequency: 0-2 drinks per day Alcohol type: wine Substance Use Substance use: Never Substance use type: does not use Vital Signs and Lab Results Lab Results Blood Type / Crossmatch: No Data to Display Complete Blood Count: No Data to Display Complete Metabolic Panel: No Data to Display Liver Function Panel: No Data to Display Coagulation Panel: No Data to Display Cardiac Panel: No Data to Display Arterial Blood Gas: No Data to Display Venous Blood Gas: No Data to Display Pancreas Panel: No Data to Display Thyroid Panel: No Data to Display Infectious Disease: Coronavirus (COVID-19)(PCR) Negative (Negative) 06/04/21 09:34 06/04/21 Coronavirus 2019 Source Nasal/Nares 06/04/21 09:34 06/04/21 Blood Cultures: No Data to Display Toxicology Panel: No Data to Display Anesthesia Assessment and Plan Anesthesia History Personal History: No History of Anesthesia Complications Family History: No Family History of Anesthesia Complications Exercise Tolerance Exercise Tolerance: Metabolic Equivalents>4 Pertinent Negatives Pertinent Negatives: No Symptoms of GERD, No Major Cardiovascular Symptoms or Complaints, No Major Pulmonary Symptoms or Complaints and No History of CVA/TIA Cardiac & Pulmonary Exam Cardiac Exam: Normal S1/S2 Heart Sounds Pulmonary Exam: Clear Bilateral Breath Sounds Airway Exam Known Difficult Airway: No Mallampati Class: 2 Mouth Opening: Normal (> 3cm) Thyromental Distance: Greater than 3 cm Neck Range of Motion: Full ROM Neck Circumference: Normal Teeth Condition: Normal Dentition, Removable Dentures/Plates Upper and Removable Dentures/Plates Lower ASA Classification ASA Score: ASA 3 Emergency Case?: No NPO Status NPO Status: NPO Clears >2 hours, Solids >8 hours Anesthesia Plan Resuscitation Status: Full Code Anesthesia Technique: General Anesthesia Airway Planned: Natural Airway Monitors Used: Standard Monitors
--- NOTE | 2021-06-05 07:24 | W.PM.ENDDOP ---
Date of service: 06/05/21 Time of Service: 07:25 Endoscopy Report DATE OF PROCEDURE: 06/05/21 PRE-OP DIAGNOSIS: abnl CT POST-OP DIAGNOSIS: other (hiatal hernia) PROCEDURE: EGD SURGEON: Patito Zamora ANESTHESIA TYPE: General:No Airway ESTIMATED BLOOD LOSS: 0 PATHOLOGY: other COMPLICATIONS: None DISPOSITION: same day PROCEDURE DESCRIPTION: After informed consent was obtained the patient was take to the procedure room and placed in a supine position. Monitors were applied and a time out was done. The patients name, date of , procedure type, allergies to medications and metal in their body was reviewed. A bite block was placed and the patient was sedated. Once sedated and comfortable the gastroscope was advanced through the oropharynx which was grossly normal into the esophagus. The proximal and mid-esophagus were nl. In the distal esophagus there was there are no esophageal erosions, varices, diverticula stricture apparent. Noted. The scope was advanced into the stomach and through the pylorus into the 3rd portion of the duodenum. The duodenum was noted to be nl. Biopsies were done, specimens are retrieved and no bleeding is noted.. The scope was retracted back into the stomach and biopsies were done to rule out H. pylori. There were no ulcers or gastritis.. The scope was retroflexed. The cardia and fundus were noted to be normal. There small, less than 2cma hiatal hernia noted, and also a patulous hiatus. The scope was retracted back into the esophagus and biopsies were done of the GE junction to rule out Jerez's. The Z line was regular. The scope was removed and the patient was woken up and taken back to [facility] in stable condition. Follow up:
--- NOTE | 2021-06-05 07:25 | W.COLOREPORT ---
Colonoscopy Report Date of procedure: 06/05/21 Pre-op diagnosis general: RLQ pain Surgeon: Patito Zamora Estimated blood loss (mL): 0 Pathology: other Complications: None Disposition: same day Prep: Miralax/Dulcolax Retraction Time: 12 mins Procedure Description: After informed consent was obtained the patient was taken to the procedure room and placed in a left decubitous position. Monitors were applied and a time out was done. The patients name, date of , procedure, allergies to medications and metal in their body was reviewed. The patient was then sedated. Once sedated and comfortable a rectal exam was done. External exam was normal. Internal exam revealed a normal sphincter tone and no palpable masses. The scope was then introduced and retrofelexed. Grade I internal hemorrhoids were identified. The scope was then advanced to the cecum w/out difficulty. The TI and appendiceal orifice were identified. The prep was good. The scope was then slowly retracted over 12 minutes back into the rectum. He had times two, 1 cm. Sessile polyps. Each of these is removed with a hot biopsy snare. All specimens are retrieved and there is no bleeding noted. He does have severe diverticula that extend all the way over to the cecum. Very large and very numerous pockets. There is no signs of active bleeding or infection. The scope was removed and the patient was woken up and taken back to Same day surgery in stable condition. The patient tolerated the procedure well and there were no immediate complications. Follow up: The patient should follow up in 5 years, provided he is still healthy for anethesia, unless they develop changes in bowel habits or other new gastrointestinal complaints.
[2021-06-05 08:13] VITALS: BP 163/102; PULSE 72; RESP 16; TEMP 36.7; O2SAT 98
[2021-06-05] MEDS: Lactated Ringers 1,000 ML 80 ML IV (08:38)
[2021-06-05 08:52] VITALS: BMI 26.9
--- NOTE | 2021-06-05 09:10 | STOM_PTH ---
PATIENT: Sam Hogan LOC: [facility] U#:[id number] AGE/SX: 75/M ROOM: RE06/05/[address]: Patito Zamora : 1945 BED: DIS: 06/05/2021 SPEC #: [id number] RECD: 06/05/21 12:45 STATUS: EDILIA REKerwin #: [id number] VICTORIA: 06/05/21 09:[address]: Patito Zamora DEPT: Surgical Specimen RECD BY: Aylin Posada ENTERED: 06/05/21 12:47 SP TYPE: STOMACH OTHR DR: Rubina Constantino Tissues: 1 - STOMACH BIOPSY 2 - BIOPSY BOWEL 3 - STOMACH BIOPSY 4 - STOMACH BIOPSY 5 - ESOPHAGUS BIOPSY 6 - ESOPHAGUS BIOPSY 7 - BIOPSY BOWEL 8 - BIOPSY BOWEL Procedures: GROSS AND MICRO LEVEL 4 Comments: [id number]
--- NOTE | 2021-06-05 09:42 | W.ANESPOSTOP ---
Postoperative Evaluation Date, Time and Location Date Performed: 06/05/21 Time Performed: 09:43 Patient Location: Day Surgery Unit Vital Signs Most Recent Imported Vital Signs: Most Recent Vital Signs Temp Pulse Resp BP Pulse Ox 36.7 C 72 16 163/102 H 98 06/05/21 08:13 06/05/21 08:13 06/05/21 08:13 06/05/21 08:13 06/05/21 08:13 Most Recent Manually Entered Vital Signs: Adult Blood Pressure: 99/56 Heart Rate: 66 Respirations: 16 Oxygen Saturation (%): 94 Temperature (C): 36.3 C Pain Score (0-10 Scale): 0 Pain Score Most Recent Pain Score: Most Recent Pain Score Pain Level 0 06/05/21 08:13 Assessment Mental Status: Awake (Alert & Oriented to Patient Baseline) Airway and Respiratory Function: Patent airway with normal (patient baseline) respiratory exam Cardiovascular Function: Hemodynamically Stable Hydration Status: Adequately Hydrated Nausea & Vomiting: No Nausea or Vomiting Pain: Pt. Denies Any Pain Peripheral Nerve Block: Patient did not receive a nerve block
[2021-06-05 09:43] VITALS: BP 99/56; PULSE 66; RESP 16; TEMPC 36.3; O2SAT 94
[2021-06-05 09:44] VITALS: BP 99/56; PULSE 69; RESP 17; TEMP 36.3; O2SAT 94
--- NOTE | 2021-06-05 09:50 | PDOC.DSDIS_ITS ---
Discharge Plan Disposition Patient Disposition: HOME Condition: Good Discharge Details Reason For Visit: stomach adn colon scope Attending Provider: Patito Zamora Primary Care Provider: Rubina Constantino Home Meds and New Rx's Prescriptions: Continued gabapentin 100 mg capsule 100 mg PO BID RF: 0 omeprazole 20 mg capsule,delayed release(DR/EC) 20 mg PO DAILY RF: 0 mecobalamin (vitamin B12) 1,000 mcg tablet,disintegrating 1,000 mcg SL DAILY RF: 0 cholecalciferol (vitamin D3) 75 mcg (3,000 unit) tablet 75 mcg PO DAILY RF: 0 multivitamin Tablet 1 tab PO DAILY RF: 0 warfarin 3 mg tablet See Rx Instructions PO DAILY RF: 0 acetaminophen [Tylenol] 325 MG tablet 325 - 650 mg PO PRN RF: 0 tamsulosin 0.4 MG capsule 0.4 mg PO DAILY RF: 0 gemfibrozil 600 MG tablet 600 mg PO BID RF: 0 simvastatin 20 MG tablet 20 mg PO DAILY RF: 0 aspirin [Adult Aspirin Regimen] 81 mg tablet,delayed release (DR/EC) 81 mg PO DAILY RF: 0 amlodipine 10 mg tablet 5 mg PO DAILY RF: 0 lorazepam 1 MG tablet 1 mg PO PRN PRNRF: 0 metoprolol tartrate 50 mg tablet 50 mg PO BID RF: 0 Discontinued polyethylene glycol 3350 17 gram/dose powder 238 g PO ONCE Qty: 238 RF: 0 bisacodyl [Dulcolax (bisacodyl)] 5 mg tablet,delayed release (DR/EC) 5 mg PO ONCE Qty: 4 RF: 0 Discharge Instructions Additional Instructions: DSU Colonoscopy Post- Op Instructions Instructions for Everyone who is given Anesthesia: For your safety, please do the following for the next twenty-four (24) hours: *Do Not operate a motor vehicle (car, truck, motorcycle, etc.) *Do Not drink alcoholic beverages or use any recreational drugs for the first 24 hours or while taking pain medications. The medications in your body may have a reaction that can be dangerous. *Do Not make any important decisions or sign any important papers. Findings: hiatal hernia x2 colon polyps severe diverticula Follow up: 2 wks 1. No lifting over 20 pounds or strenuous activity for the first 24 hours after your procedure. After 24 hours there are no restrictions on your activity but you may feel fatigued for a few days. 2. After you arrive home you may have a light meal and return to your normal diet as you can tolerate it without feeling sick to your stomach. 3. You may have a bloated, gaseous feeling in your belly (abdomen) after a colonoscopy. Passing gas and belching will help. Walking or lying down on your left side with your knees flexed may relieve the discomfort. Call the office at [phone] (Office) or [phone] (Hospital) right away if you notice any of the following: a.Vomiting of blood or ?coffee ground stools?. b.Rectal bleeding 1Tbsp, blood clots or continuous bleeding. c.Severe belly (abdominal) pain. d.A hard distended belly (abdomen) and an inability to pass gas. 4. Please don?t expect to have a normal BM (bowel movement) for 2-3 days after your procedure. 5. If there are questions regarding the findings of your procedure, please contact your doctor 6. If you are unable to contact your doctor with a problem, contact the hospital at [phone]. 7. Continue all your regular medications unless directed otherwise. I understand the above instructions and have no questions. Signature of Patient or Adult Escort Name of Responsible Adult Escort Signature of Nurse Date/Time Activity:: see above Diet:: see above Discharge Orders Discharge Orders: Discharge Order (Routine); Ordered 06/05/21 Ordered By: Patito Zamora DS: Diagnosis Discharge Diagnosis (1) Hiatal hernia with GERD: Status: Acute (2) Adenomatous colon polyp: Status: Acute (3) Diverticula of colon: Status: Acute
[2021-06-05 10:08] VITALS: BP 145/79; PULSE 67; RESP 16; TEMP 36.4; O2SAT 95
== END 2021-06-05 10:35 | disposition home or self-care (01) ==
PROVIDERS: PCP Nurse Practitioner; Visit Provider Surgery
PROC: (CPT 43239; principal; 2021-06-05 09:30)
DX: K21.9 Gastro-esophageal reflux disease without esophagitis (principal); D12.4 Benign neoplasm of descending colon; K31.89 Other diseases of stomach and duodenum; K44.9 Diaphragmatic hernia without obstruction or gangrene; K57.30 Diverticulosis of large intestine without perforation or abscess without bleeding; R10.31 Right lower quadrant pain
CPT/HCPCS: 43239; 45385; 45380; 88305; J2001

== ENCOUNTER → 2021-06-18 15:21 | Outpatient (BNVA) | payer MEDICARE, SELFPAY | PROVIDERS: PCP Nurse Practitioner; Referring Provider Nurse Practitioner; Visit Provider Surgery | DX: K40.91 Unilateral inguinal hernia, without obstruction or gangrene, recurrent (principal) | CPT/HCPCS: 99213 ==

== ENCOUNTER 2021-06-25 02:42 | Outpatient (CLI) | payer MEDICARE, SELFPAY ==
[2021-06-25 11:04] LABS: Source Nasal/Nares
[2021-06-25 16:36] LABS: COVID-19 PCR Negative (Negative)
== END 2021-06-25 02:43 | disposition home or self-care (01) ==
LOC: LBO 02:43
PROVIDERS: PCP Nurse Practitioner; Visit Provider Surgery
DX: Z20.822 Contact with and (suspected) exposure to COVID-19 (principal); Z01.818 Encounter for other preprocedural examination
CPT/HCPCS: 87635

== ENCOUNTER 2021-06-26 08:08 | Day surgery (SDC) | payer MEDICARE, SELFPAY ==
--- NOTE | 2021-06-25 22:39 | W.PM.DSUDISC ---
Discharge Plan Disposition Patient Disposition: HOME Condition: Good Discharge Details Reason For Visit: hernia repair Attending Provider: Patito Zamora Primary Care Provider: Rubina Constantino Home Meds and New Rx's Prescriptions: New celecoxib [Celebrex] 200 mg capsule 200 mg PO BID Qty: 30 RF: 0 oxycodone 5 mg capsule 5 mg PO Q6H PRNQty: 10 RF: 0 Continued gabapentin 100 mg capsule 100 mg PO BID RF: 0 omeprazole 20 mg capsule,delayed release(DR/EC) 20 mg PO DAILY RF: 0 mecobalamin (vitamin B12) 1,000 mcg tablet,disintegrating 1,000 mcg SL DAILY RF: 0 cholecalciferol (vitamin D3) 75 mcg (3,000 unit) tablet 75 mcg PO DAILY RF: 0 multivitamin Tablet 1 tab PO DAILY RF: 0 warfarin 3 mg tablet See Rx Instructions PO DAILY RF: 0 acetaminophen [Tylenol] 325 MG tablet 325 - 650 mg PO PRN RF: 0 tamsulosin 0.4 MG capsule 0.4 mg PO DAILY RF: 0 gemfibrozil 600 MG tablet 600 mg PO BID RF: 0 simvastatin 20 MG tablet 20 mg PO DAILY RF: 0 aspirin [Adult Aspirin Regimen] 81 mg tablet,delayed release (DR/EC) 81 mg PO DAILY RF: 0 amlodipine 10 mg tablet 5 mg PO DAILY RF: 0 lorazepam 1 MG tablet 1 mg PO PRN PRNRF: 0 metoprolol tartrate 50 mg tablet 50 mg PO BID RF: 0 Discharge Instructions Additional Instructions: Dr. Zamora HERNIA REPAIR ? POSTOPERATIVE INSTRUCTIONS Patients who have this type of surgery can usually be expected to return to work within two weeks and have minimal amounts of discomfort. ? ACTIVITY: The day of surgery should be spent resting. However, you can be up for short periods of time, I.E., going to the bathroom or kitchen. Avoid lifting or straining. On the day following surgery, you can be up and about as desired. ? LIFTING: Restrict your lifting to no more than five (5) pounds for the first week following surgery. For the second week after surgery, don?t lift more than ten pounds. We will decide when you are done with restrictions and when you can return to work, at your follow-up appointment. No sexual activity for two weeks. ? DIET: There are no dietary restrictions following surgery. However, you may want to start with small amounts of liquids to avoid nausea the day of surgery. ? INCISION CARE: You will notice purple skin glue closing the incision. Do not peel this off- it will wear off on its own. After 24 hours you may shower. The dressing may be replaced for comfort, but is not necessary. An ice bag may be applied to the incision for 72 hours following surgery. ? SIGNS OF INFECTION: It is not unusual to have some black and blue discoloration of the skin around the incision, but also scrotum and penis. It will slowly disappear. If you have any increased redness, drainage, fever (above 100 degrees), please contact your doctor for an examination. *Expect to be [id number] post-Op. ? DISCOMFORT: You may expect to have some mild discomfort at the incision sight. If severe pain develops you should contact your doctor for further instructions. ? URINATION: Patients who have surgery occasionally have problems urinating. If you experience problems and are not able to urinate within 6 hours following your surgery, please call your doctor immediately or go to your nearest Emergency Room for evaluation. ? DRIVING: NO driving for three (3) days after surgery, or if you are still taking narcotic pain medication. ? MEDICATIONS: Alternate Tylenol 1000mg by mouth every 8 hours and celebrex every 12hr. Make sure you take ibuprofen with food and not on an empty stomach. Take the Tylenol and ibuprofen continuously for the first 72hrs- not just when you have pain. Use the for breakthrough pain. Use ICE! Twenty minutes on, and then off, continuously for the first 72hours. If you are taking narcotic pain medication, follow the instructions on the label and do not drive. Pain medications can make you very constipated. Make sure you are moving your bowels daily. If not, take Miralax, milk of magnesia or magnesium citrate. Anesthesia makes you very constipated. Take a dose of milk of magnesia the morning after surgery. -hold aspirin while taking the celebrex. -ok to resume metamucil on 06/27. -resume coumadin on 07/02. F/u w/ PCP for INR check on 07/05. You will need to call and make this appt. ? REPORT: Unusual swelling, severe pain, unresolved nausea, signs of infection, or difficulty in urination to your surgeon. Follow up in clinic with Dr. Zamora in 2 weeks. [phone] Activity:: see above Remove Dressings/Wound Care:: 24 hours Shower/Bathe:: 24 hours Diet:: see above Discharge Orders Discharge Orders: Discharge Order (Routine); Ordered 06/25/21 Ordered By: Patito Zamora DS: Diagnosis Discharge Diagnosis (1) Recurrent right inguinal hernia: Status: Acute
[2021-06-26] VITALS (7 sets, daily range): BP systolic 126–197; BP diastolic 61–114; PULSE 56–74; RESP 15–19; TEMP 36–36.6; O2SAT 95–97; BMI 26.9
--- NOTE | 2021-06-26 07:28 | W.ANESPRE ---
General Info Date of Service Date Performed: 06/26/21 Height: 5 ft 7 in Weight: 77.791 kg Body Mass Index (BMI): 26.9 Surgical Procedure: Operation Date: 06/26/21 09:25 Proposed Procedures Side Surgeon p Herniorrhaphy Inguinal Right Patito Zamora, Meds Allergies and Home Medications Allergies Allergy/AdvReac Type Severity Reaction Status Date / Time chlorpheniramine Allergy Intermediate rash Verified 06/26/21 08:29 [From Tussionex] hydrocodone [From Tussionex] Allergy Mild rash Verified 06/26/21 08:29 oxycodone Allergy Verified 06/26/21 08:29 escitalopram oxalate AdvReac Severe suidial Verified 06/26/21 08:29 [From Lexapro] ideations tramadol AdvReac Mild Verified 06/26/21 08:29 Home Medication Medication Instructions Recorded lorazepam 1 mg PO PRN PRN 02/08/13 acetaminophen [Tylenol] 325 - 650 mg PO PRN tab-cap 06/26/15 tamsulosin 0.4 mg PO DAILY tab-cap 06/26/15 gemfibrozil 600 mg PO BID tab-cap 10/13/17 simvastatin 20 mg PO DAILY tab-cap 10/13/17 cholecalciferol (vitamin D3) 75 75 mcg PO DAILY 01/10/20 mcg (3,000 unit) tablet mecobalamin (vitamin B12) 1,000 1,000 mcg SL DAILY 01/10/20 mcg disintegrating tablet,sublingual multivitamin 1 tab PO DAILY 01/10/20 omeprazole 20 mg capsule,delayed 20 mg PO DAILY 01/10/20 release metoprolol tartrate 50 mg tablet 50 mg PO BID tab 01/12/21 amlodipine 10 mg tablet 5 mg PO DAILY tab-cap 02/28/21 aspirin 81 mg tablet,delayed 81 mg PO DAILY 02/28/21 release warfarin 3 mg tablet See Rx Instructions PO DAILY tab 03/08/21 gabapentin 100 mg capsule 100 mg PO BID 05/24/21 Current Visit Medications: Current Medications Generic Name Dose Route Start Last Admin Trade Name Freq PRN Reason Stop Dose Admin Acetaminophen 1,000 mg 06/26/21 06:00 Acetaminophen 500 Mg Tab PO 07/25/21 23:59 PREOP TERESA Gabapentin 300 mg 06/26/21 06:00 Gabapentin 300 Mg Cap PO 07/25/21 23:59 PREOP TERESA Ringer's Solution 1,000 mls @ 80 mls/hr 06/26/21 06:00 IV 07/25/21 23:59 INFUSION TERESA Cefazolin Sodium/Dextrose 2 gm in 50 mls @ 100 mls/hr 06/26/21 06:00 Ancef Duplex IVPB 07/25/21 23:59 PREOP TERESA Ondansetron HCl 4 mg/ Sodium 52 mls @ 200 mls/hr 06/25/21 22:37 Chloride IVPB Q6H PRN PRN IV Miscellaneous Supplies 1 each 06/26/21 06:00 Iv Access IV 07/25/21 23:59 DIRECTED TERESA Morphine Sulfate 2 mg 06/25/21 22:37 Morphine 4 Mg/Ml Syr IVP Q1H PRN PRN Sodium Chloride 0 ml 06/26/21 06:00 Normal Saline Flush 10 Ml Syr IV 07/25/21 23:59 PRN PRN Sodium Chloride 0 ml 06/26/21 06:00 Normal Saline 10 Ml Vial IJ 07/25/21 23:59 DIRECTED PRN Sterile Water 0 ml 06/26/21 06:00 Water,Injection,Sterile 10 Ml Vial IJ 07/25/21 23:59 DIRECTED PRN PFSH Active Problems Active Problems: Problem Status Onset Code Recurrent right inguinal hernia K40.91 Adenomatous colon polyp D12.6 Diverticula of colon K57.30 Hiatal hernia with GERD K21.9, K44.9 Internal derangement of left knee M23.92 Left ventricular aneurysm I25.3 Hallux valgus (acquired), left foot M20.12 Hallux valgus (acquired), right foot M20.11 Hip pain, right M25.551 RLQ abdominal pain R10.[address] of the abdomen R93.5 GERD (gastroesophageal reflux disease) K21.9 Hx of hyperlipidemia Z86.39 BPH loc w urin obs/LUTS N40.1 Arthritis of right hip 10/13/17 M16.11 Atherosclerotic cardiovascular disease I25.10 Peripheral vascular disease I73.9 HTN (hypertension) I10 Atrial fibrillation I48.91 Medical History Medical History AAA (abdominal aortic aneurysm) 02/2021: 3.9cm AAA Abdominal pain Adenomatous colon polyp Adrenal nodule Anxiety Arthritis of right hip (10/13/17) Atherosclerotic cardiovascular disease Atrial fibrillation BPH loc w urin obs/LUTS CAD (coronary artery disease) 03/2020 CABG X6, LV aneurysm repair, RANDELL removal Elevated hemoglobin A1c Enlarged prostate GERD (gastroesophageal reflux disease) HTN (hypertension) Hx of hyperlipidemia Osteoarthritis Pelvic pain Peripheral [place] [facility] [place]io[place]arte[place] with patch angioplasty, Left femoral->peroneal bypass. 11[place]24/[place] [facility] [place] external iliac artery stentgraft placed, ligation left leg bypass graft fistula. Surgical History Surgical History (Updated 06/26/21 @ 08:29 by Rip Li) History of colonoscopy with polypectomy (~06/05/21) History of esophagogastroduodenoscopy (EGD) (~06/05/21) History of open heart surgery Pt states placed 4 or 5 stents post heart attack - 2019 History of surgery on extremity bilat lower extremity bypass/vascular History of tonsillectomy and adenoidectomy Hx of colonoscopy Hx of hernia repair x5 Tobacco Smoking/Tobacco Use Status: Former Tobacco Use Alcohol Alcohol Intake: current Alcohol intake frequency: a few times a week Alcohol type: wine Substance Use Substance use: Never Substance use type: does not use Vital Signs and Lab Results Lab Results Blood Type / Crossmatch: No Data to Display Complete Blood Count: No Data to Display Complete Metabolic Panel: No Data to Display Liver Function Panel: No Data to Display Coagulation Panel: No Data to Display Cardiac Panel: No Data to Display Arterial Blood Gas: No Data to Display Venous Blood Gas: No Data to Display Pancreas Panel: No Data to Display Thyroid Panel: No Data to Display Infectious Disease: Coronavirus (COVID-19)(PCR) Negative (Negative) 06/25/21 09:09 06/25/21 Coronavirus 2019 Source Nasal/Nares 06/25/21 09:09 06/25/21 Blood Cultures: No Data to Display Toxicology Panel: No Data to Display Anesthesia Assessment and Plan Anesthesia History Personal History: No History of Anesthesia Complications Family History: No Family History of Anesthesia Complications Exercise Tolerance Exercise Tolerance: Metabolic Equivalents>4 Pertinent Negatives Pertinent Negatives: No Symptoms of GERD, No Major Cardiovascular Symptoms or Complaints, No Major Pulmonary Symptoms or Complaints and No History of CVA/TIA Cardiac & Pulmonary Exam Cardiac Exam: Normal S1/S2 Heart Sounds Pulmonary Exam: Clear Bilateral Breath Sounds Airway Exam Known Difficult Airway: No Mallampati Class: 2 Mouth Opening: Normal (> 3cm) Thyromental Distance: Greater than 3 cm Neck Range of Motion: Full ROM Neck Circumference: Normal Teeth Condition: Normal Dentition, Removable Dentures/Plates Upper and Removable Dentures/Plates Lower ASA Classification ASA Score: ASA 3 Emergency Case?: No NPO Status NPO Status: NPO Clears >2 hours, Solids >8 hours Anesthesia Plan Resuscitation Status: Full Code Anesthesia Technique: General Anesthesia Airway Planned: Endotracheal Tube Pain Management: Surgeon and patient request nerve block Monitors Used: Standard Monitors
[2021-06-26] MEDS: Acetaminophen 500 MG TAB 1000 MG PO (09:29)
[2021-06-26] MEDS: Gabapentin 300 MG CAP PO (09:30)
[2021-06-26] MEDS: Lactated Ringers 1,000 ML 80 ML IV (09:32)
[2021-06-26] MEDS: ceFAZolin 2 GM/50 ML BAG IVPB (10:30)
--- NOTE | 2021-06-26 11:30 | W.ANESNERVE ---
Nerve Block Single Injection Procedure Date and Time Date Performed: 06/26/21 Procedure Start: 10:38 Location Where Procedure Performed Procedure Location: Operating Room Procedure Stop: 10:52 Reason Performed: Postoperative Analgesia Requesting Provider: Patito Zamora Timeout Performed Timeout Performed: Yes Monitoring Used ECG, Blood Pressure, SpO2, ETCO2 and See EMR for corresponding vital signs Sterility Sterility: Hand Hygiene, Surgical Cap, Surgical Mask, Sterile Gloves and Chlorhexidine Sedation Given During Procedure Sedation Given (Indicate Dose Given): No Sedation given Patient Mental Status Patient Mental Status: Performed under general anesthesia Nerve Block 1st Nerve Block: Laterality: Right Block Type: TAP Unilateral Needle / Catheter Used: 100mm SonoPlex II Local Anesthetic Bolus (Indicate Dose Given): Injected in 3-5ml increments after negative blood aspiration, Bupivacaine 0.25% Dose:: 20 ml and Exparel Dose:: 10 ml Additives (Indicate Dose Given): None Ultrasound: Sterile probe cover and gel used Ultrasound Image Saved?: Yes Nerve Stimulator: Not Used Paresthesia: None Procedure Tolerated: No Complications Procedure Outcome: Successful Performed By: Janes Fournier Supervised By: Omar Mann
[2021-06-26] MEDS: Bupivacaine LIPOSOME/PF 133 MG/10 ML VIAL IJ (11:35)
--- NOTE | 2021-06-26 11:51 | ROE_ITS ---
Date of service: 06/26/21 Time of Service: 11:51 Operative Note Operative Note DATE OF PROCEDURE: 06/26/21 PRE-OP DIAGNOSIS: right inguinal hernia- recurrent POST-OP DIAGNOSIS: same (direct) PROCEDURE: open repair w/ mesh SURGEON: Patito Zhang VACUUM REPAIRER: Cecile Mendoza ANESTHESIA TYPE: Local By Surgeon, General LMA/ETT and Primary Nerve Block Refer to Anesthesia Record ESTIMATED BLOOD LOSS: 5 PATHOLOGY: none sent COMPLICATIONS: None Patient was transported to: PACU Patient's condition: stable Implants: see RN notes Procedure Description: INDICATIONS: The pt is here today for surgery regarding symptomatic recurrent right inguinal hernia that has failed outpatient conservative medical management and he is here today for repair. Informed consent was obtained, explaining risks and benefits of the procedure including but not limited to bleeding, infection, pneumonia, blood clots, chronic pain, chronic numbness, damage to testicle resulting in removal, recurrence of hernia, reaction to Mesh necessitating removal, and other unforetold complications, and complications of anesthesia- which were addressed by the BIO[employer] PRODUCTION MANAGER. The patient is marked in preOp prior to the procedure DESCRIPTION OF PROCEDURE: The pt is then brought to the operative room suite. Anesthesia was administered per the Department of Anesthesia. A nerve block was performed by anesthesia under US guidance. The patient was prepped and draped in the usual sterile fashion using ChloraPrep scrub solution. Pause for the cause was done. He did receive preop IV antibiotics, and 30 mL of .25% Marcaine w/ epinephrine was used for local anesthetization. A #12 blade was used to make an incision over the external ring. Electrocautery used to provide hemostasis and dissect down to the fascia. The fascia was pretty much obliterated and there was nothing to open. There is also scarring and postsurgical changes noted from his previous hernia repair. The cord is elevated. The nerve was not identified. There is a cord lipomas. Electro-cautery is used to provide hemostasis. A [place] drain was placed around the cord to assist in mobilization. The cord was explored. There was is hernia sac on the cord. There is no direct hernia pushing through the floor. The hernia sac is dissected off the cord using a combination of blunt dissection and electrocautery. Electrocautery is used to provide hemostasis. There are no contents within the hernia sac. The hernia sac is than inverted and returned to the abdominal cavity. A large size plug is than inserted into the defect through the internal ring, and over sewn to tighten up the ring with 2-0 vicryl. Please see RN notes from Lot number of the [employer] mesh patch/plug. The cord structures are still able to freely move through the ring itself. The patch was then placed onto the floor, and using 2-0 Vicryl, sewn into the pubic tubercle and the shelving portions of the inguinal ligament, in the standard Lichenstein fashion. The tails of the mesh are brought around the cord, sewn together w/ 2-0 Vicryl, and tucked under the external oblique. The wound was copiously irrigated. There was no bleeding noted. The drain was removed. All structures are returned to normal anatomical position. The nerve is not sewn into the mesh, nor caught up in any sutures. The external oblique is re-approximated using 2-0 vicryl in a running fashion. Deep tissue was approximated with 3-0 Vicryl in a running fashion, and skin was approximated with 4-0 Monocryl in a running subcuticular fashion. STeri tapes and sterile dressings are applied. The patient tolerated the procedure without complications to recovery in stable condition. PATITO ZHANG, DO
--- NOTE | 2021-06-26 13:48 | W.ANESPOSTOP ---
Postoperative Evaluation Date, Time and Location Date Performed: 06/26/21 Time Performed: 13:48 Patient Location: Day Surgery Unit Vital Signs Most Recent Imported Vital Signs: Most Recent Vital Signs Temp Pulse Resp BP Pulse Ox 36.4 C L 65 16 171/87 H 96 06/26/21 13:10 06/26/21 13:10 06/26/21 13:10 06/26/21 13:10 06/26/21 13:10 Pain Score Most Recent Pain Score: Most Recent Pain Score Pain Level 2 06/26/21 13:10 Assessment Mental Status: Awake (Alert & Oriented to Patient Baseline) Airway and Respiratory Function: Patent airway with normal (patient baseline) respiratory exam Cardiovascular Function: Hemodynamically Stable Hydration Status: Adequately Hydrated Nausea & Vomiting: No Nausea or Vomiting Pain: Pt. Denies Any Pain Peripheral Nerve Block: Regional nerve block not resolved at time of post operative discharge (TAP block)
== END 2021-06-26 14:04 | disposition home or self-care (01) ==
PROVIDERS: PCP Nurse Practitioner; Visit Provider Surgery
PROC: (CPT 49520; principal; 2021-06-26 09:15)
DX: K40.91 Unilateral inguinal hernia, without obstruction or gangrene, recurrent (principal); I48.91 Unspecified atrial fibrillation; I10 Essential (primary) hypertension; Z79.01 Long term (current) use of anticoagulants
CPT/HCPCS: 49520; C1781; J0690; J1100; J2370; J2405

== ENCOUNTER → 2021-07-12 09:53 | Outpatient (BNVA) | payer MEDICARE, SELFPAY | PROVIDERS: PCP Nurse Practitioner; Referring Provider Nurse Practitioner; Visit Provider Surgery | DX: Z48.815 Encounter for surgical aftercare following surgery on the digestive system (principal) ==

== ENCOUNTER 2021-11-13 03:55 | Outpatient (CLI) | payer MEDICARE, SELFPAY ==
[2021-11-13 12:03] LABS: Source Nasal/Nares
[2021-11-13 16:21] LABS: COVID-19 PCR Negative (Negative)
== END 2021-11-13 03:56 | disposition home or self-care (01) ==
LOC: LBO 03:55
PROVIDERS: PCP Nurse Practitioner; Visit Provider Surgery
DX: Z20.822 Contact with and (suspected) exposure to COVID-19 (principal); Z01.818 Encounter for other preprocedural examination
CPT/HCPCS: 87635; U0005

== ENCOUNTER → 2021-11-19 11:15 | Outpatient (BNVA) | payer MEDICARE, SELFPAY | PROVIDERS: PCP Nurse Practitioner Family; Referring Provider Nurse Practitioner Family; Visit Provider Internal Medicine Cardiovascular Disease | DX: I25.10 Atherosclerotic heart disease of native coronary artery without angina pectoris (principal); I73.9 Peripheral vascular disease, unspecified; I10 Essential (primary) hypertension; I48.91 Unspecified atrial fibrillation | CPT/HCPCS: 99214; 99213 ==

== ENCOUNTER → 2022-03-01 09:57 | Outpatient (BNVA) | payer MEDICARE, SELFPAY | PROVIDERS: PCP Nurse Practitioner Family; Referring Provider Nurse Practitioner; Visit Provider Urology | DX: R35.1 Nocturia (principal); R10.2 Pelvic and perineal pain; N40.1 Benign prostatic hyperplasia with lower urinary tract symptoms | CPT/HCPCS: 36415; 51798; 81003; 99214 ==

== ENCOUNTER 2022-03-01 16:30 | Outpatient (REF) | payer MEDICARE, SELFPAY ==
[2022-03-01 22:14] LABS: PSA, Diagnostic 0.4 ng/mL (<=6.5)
== END 2022-03-01 16:31 | disposition home or self-care (01) ==
LOC: LBN 16:30
PROVIDERS: PCP Nurse Practitioner Family; Visit Provider Urology
DX: N40.1 Benign prostatic hyperplasia with lower urinary tract symptoms (principal)
CPT/HCPCS: 84153

== ENCOUNTER 2022-05-28 08:43 | Outpatient (CLI) | payer MEDICARE, SELFPAY | END 2022-05-28 08:44 | disposition home or self-care (01) | LOC: DI.CARD 08:44 | PROVIDERS: PCP Nurse Practitioner Family; Visit Provider Internal Medicine Cardiovascular Disease | CPT/HCPCS: 93010 ==

== ENCOUNTER → 2022-05-28 12:54 | Outpatient (BNVA) | payer MEDICARE, SELFPAY | PROVIDERS: PCP Nurse Practitioner Family; Visit Provider Internal Medicine Cardiovascular Disease | DX: I25.810 Atherosclerosis of coronary artery bypass graft(s) without angina pectoris (principal); I48.21 Permanent atrial fibrillation; Z79.01 Long term (current) use of anticoagulants; I10 Essential (primary) hypertension; I71.4 Abdominal aortic aneurysm, without rupture; I73.9 Peripheral vascular disease, unspecified | CPT/HCPCS: 99214 ==

== ENCOUNTER 2022-09-16 15:08 | Outpatient (REF) | payer MEDICARE, SELFPAY ==
[2022-09-16 16:15] LABS: COMMENT (LAB VIEW ONLY) 35.03 mg/dL
== END 2022-09-16 15:09 | disposition home or self-care (01) ==
LOC: NCHCN 15:08
PROVIDERS: PCP Nurse Practitioner Family; Visit Provider Nurse Practitioner Family
DX: D35.00 Benign neoplasm of unspecified adrenal gland (principal); R73.09 Other abnormal glucose; Z00.00 Encounter for general adult medical examination without abnormal findings
CPT/HCPCS: 82043; 82570

== ENCOUNTER 2022-11-26 08:29 | Outpatient (CLI) | payer MEDICARE, SELFPAY ==
--- NOTE | 2022-11-26 08:15 | RT.EKG_ITS ---
APPROVED REPORT Exam: Resting ECG Reason for Exam: afib Patient Location: O HR:68 bpm ECG Measurements Heart Rate 68 AXIS NC [id number] P [id number] QRSd 153 QRS -73 QT 449 T 47 QTc 478 Conclusion Atrial fibrillation...? atrial activity RBBB and LAFB...QRSd >120mS, axis(-40,240) Probable left ventricular hypertrophy...(RaVL+SV3)xQRSd >280
== END 2022-11-26 08:30 | disposition home or self-care (01) ==
LOC: DI.CARD 08:30
PROVIDERS: PCP Nurse Practitioner Family; Visit Provider Internal Medicine Cardiovascular Disease
DX: I48.91 Unspecified atrial fibrillation (principal); I45.10 Unspecified right bundle-branch block
CPT/HCPCS: 93010

== ENCOUNTER → 2022-11-26 10:48 | Outpatient (BNVA) | payer MEDICARE, SELFPAY | PROVIDERS: PCP Nurse Practitioner Family; Referring Provider Nurse Practitioner Family; Visit Provider Internal Medicine Cardiovascular Disease | DX: I25.10 Atherosclerotic heart disease of native coronary artery without angina pectoris (principal); I73.9 Peripheral vascular disease, unspecified; I10 Essential (primary) hypertension; I48.91 Unspecified atrial fibrillation; Z79.01 Long term (current) use of anticoagulants | CPT/HCPCS: 93005; 99214 ==

== ENCOUNTER 2023-03-03 03:05 | Outpatient (CLI) | payer MEDICARE, SELFPAY ==
[2023-03-03 19:45] LABS: PSA, Diagnostic 0.4 ng/mL (<=6.5)
== END 2023-03-03 03:06 | disposition home or self-care (01) ==
LOC: LBO 03:05
PROVIDERS: PCP Nurse Practitioner Family; Visit Provider Urology
DX: N40.1 Benign prostatic hyperplasia with lower urinary tract symptoms (principal)
CPT/HCPCS: 36415; 84153

== ENCOUNTER → 2023-03-10 13:53 | Outpatient (BNVA) | payer MEDICARE, SELFPAY | PROVIDERS: PCP Nurse Practitioner Family; Visit Provider Urology | DX: N40.1 Benign prostatic hyperplasia with lower urinary tract symptoms (principal); R39.89 Other symptoms and signs involving the genitourinary system; I10 Essential (primary) hypertension | CPT/HCPCS: 51798; 81003; 99213 ==

== ENCOUNTER 2023-03-20 15:04 | Outpatient (REF) | payer MEDICARE, SELFPAY ==
--- NOTE | 2023-03-20 14:15 | SKI_PTH ---
PATIENT: Sam Hogan LOC: [facility] U#:[id number] AGE/SX: 77/M ROOM: RE03/20/[address]: Jacquie Ryan : 1945 BED: DIS: 03/20/2023 SPEC #: [id number] RECD: 03/21/23 11:59 STATUS: EDILIA REKerwin #: [id number] VICTORIA: 03/20/23 14:[address]: Jacquie Ryan DEPT: Surgical Specimen RECD BY: Aylin Posada ENTERED: 03/21/23 12:00 SP TYPE: KYM ALVARADO DR: KIM NUNEZ, LARYNGOLOGIST Tissues: 1 - SKIN BIOPSY(SHAVE/PUNCH) Procedures: SKIN LEVEL 4 Comments: [id number]
== END 2023-03-20 15:05 | disposition home or self-care (01) ==
LOC: LBN 15:04
PROVIDERS: PCP Nurse Practitioner Family; Visit Provider Registered Nurse Maternal Newborn
DX: D03.39 Melanoma in situ of other parts of face (principal)
CPT/HCPCS: 88305

== ENCOUNTER → 2023-05-27 10:33 | Outpatient (BNVA) | payer MEDICARE, SELFPAY | PROVIDERS: PCP Nurse Practitioner Family; Visit Provider Internal Medicine Cardiovascular Disease | DX: Z79.01 Long term (current) use of anticoagulants (principal); I48.91 Unspecified atrial fibrillation; I25.10 Atherosclerotic heart disease of native coronary artery without angina pectoris; I73.9 Peripheral vascular disease, unspecified; I10 Essential (primary) hypertension | CPT/HCPCS: 99214 ==

== ENCOUNTER 2023-06-25 15:26 | Outpatient (REF) | payer MEDICARE, SELFPAY ==
[2023-06-25 15:56] LABS: HCT 42.8 % (40.0-50.0); HGB 14.5 g/dL (13.5-17.5); MCH 32.4 pg (27.0-33.0); MCHC 33.9 % (32.0-36.0); MCV 96 fL (80-95); MPV 9.9 fL (8.0-11.0); Platelet Count 248 10^3/uL (130-400); RBC 4.48 10^6/uL (4.36-5.78); RDW 12.8 % (11.8-14.1); RDW-SD 45.1 fL
[2023-06-25 16:28] LABS: ALT 25 U/L (16-63); AST 27 U/L (15-37); Albumin 3.9 g/dL (3.4-5.0); Alkaline Phosphatase 76 U/L (46-116); Anion Gap 11.5 mmol/L (3-11); BUN 11 mg/dL (7-18); Bilirubin, Total 0.7 mg/dL (0.2-1.0); CO2 21.5 mmol/L (21.0-32.0); COMMENT (LAB VIEW ONLY) 21.12 mg/dL; CREATININE 0.8 mg/dL (0.70-1.30); Calcium 9.8 mg/dL (8.5-10.1); Calculated LDL 94 mg/dL (<100); Chloride 105 mmol/L (98-107); Cholesterol 177 mg/dL (<200); Estimated GFR 91.72 (mL/min/1.73m2); Glucose 150 mg/dL (74-106); HDL Cholesterol 54 mg/dL (40-60); Potassium 4.3 mmol/L (3.5-5.1); Prot/Crea Ur Ratio 1.46; Sodium 138 mmol/L (136-145); Total Protein 7.5 g/dL (6.4-8.2); Triglyceride 148 mg/dL (<150)
[2023-06-25 16:39] LABS: COMMENT (LAB VIEW ONLY) 21.12 mg/dL
[2023-06-25 16:40] LABS: Hemoglobin A1C 5.9 % (<5.7); Microalb ug/mg Crea 1036.9 ug/mg Cr
== END 2023-06-25 15:27 | disposition home or self-care (01) ==
LOC: NCHCN 15:26
PROVIDERS: PCP Nurse Practitioner Family; Visit Provider Nurse Practitioner Family
DX: E78.5 Hyperlipidemia, unspecified (principal); R73.09 Other abnormal glucose; I25.10 Atherosclerotic heart disease of native coronary artery without angina pectoris; R80.9 Proteinuria, unspecified; Z51.81 Encounter for therapeutic drug level monitoring; Z79.01 Long term (current) use of anticoagulants
CPT/HCPCS: 80053; 80061; 85027; 82043; 82565; 82570; 83036; 84156

== ENCOUNTER 2023-08-28 12:05 | Emergency (ER) | payer MEDICARE, SELFPAY ==
[2023-08-28] VITALS (48 sets, daily range): BP systolic 107–169; BP diastolic 74–108; PULSE 60–119; RESP 16–47; TEMP 36.4–36.6; O2SAT 88–98
--- NOTE | 2023-08-28 12:30 | RT.EKG_ITS ---
APPROVED REPORT Exam: Resting ECG Reason for Exam: SOB Patient Location: E HR:112 bpm ECG Measurements Heart Rate 112 AXIS ME [id number] P [id number] QRSd 154 QRS -69 QT 381 T 67 QTc 521 Conclusion Atrial flutter...A-rate 227 Ventricular bigeminy...bigeminy string>4 w/ V complexes Right bundle branch block...QRSd>120, terminal axis(90,270) ST elevation secondary to atrial flutter Atrial flutter at a rate of 112 with right bundle branch which appears new compared to prior dated 20. T wave inversions aVL. Frequent PVCs.
--- NOTE | 2023-08-28 12:45 | RT.EKG_ITS ---
APPROVED REPORT Exam: Resting ECG Reason for Exam: chest pain Patient Location: E HR:108 bpm ECG Measurements Heart Rate 108 AXIS MO [id number] P [id number] QRSd 148 QRS -75 QT 384 T 73 QTc 515 Conclusion Atrial fibrillation...? atrial activity Right bundle branch block...QRSd>120, terminal axis(90,270) Inferior infarct, old...Q >35mS, II III aVF Rate controlled atrial fibrillation at a rate of 108. Left axis deviation no signs of LVH. Right bu ndle branch block left axis deviation?bifascicular block. T wave inversions right anterior ches t wall leads ST segment flattening 1 and aVL. No acute injury pattern. Right-sided more controlled compared to prior.
[2023-08-28 13:20] LABS: Abs Immature Grans 0.04 10^3/uL (0.0-0.06); Absolute Basophil Count 0.03 10^3/uL (0.0-0.2); Absolute Eosinophil Count 0.01 10^3/uL (0.0-0.7); Absolute Lymphocyte Count 0.89 10^3/uL (1.2-3.4); Absolute Monocyte Count 0.43 10^3/uL (0.1-0.8); Absolute Neutrophil Count 7.92 10^3/uL (1.2-6.7); Basophils % 0.3; Eosinophils % 0.1; HCT 44.9 % (40.0-50.0); HGB 14.8 g/dL (13.5-17.5); Immature Grans % 0.4; Lymphocytes % 9.5; MCH 31.8 pg (27.0-33.0); MCV 97 fL (80-95); MPV 9.5 fL (8.0-11.0); Monocytes % 4.6; Neutrophils % 85.1; Platelet Count 402 10^3/uL (130-400); RBC 4.65 10^6/uL (4.36-5.78); RDW 14.5 % (11.8-14.1); RDW-SD 51.5 fL; WBC 9.32 10^3/uL (4.4-10.8)
[2023-08-28] MEDS: Metoprolol 50 MG TAB PO (13:37)
[2023-08-28 13:43] LABS: ALT 30 U/L (16-63); AST 24 U/L (15-37); Albumin 3.7 g/dL (3.4-5.0); Alkaline Phosphatase 100 U/L (46-116); Anion Gap 15.5 mmol/L (3-11); BUN 22 mg/dL (7-18); Bilirubin, Total 1.4 mg/dL (0.2-1.0); CO2 21.5 mmol/L (21.0-32.0); CREATININE 1.4 mg/dL (0.70-1.30); Calcium 9.6 mg/dL (8.5-10.1); Chloride 98 mmol/L (98-107); Estimated GFR 52.09 (mL/min/1.73m2); Glucose 151 mg/dL (74-106); NT-proBNP 6681 pg/mL (<300); Potassium 3.6 mmol/L (3.5-5.1); Sodium 135 mmol/L (136-145); Total Protein 7.5 g/dL (6.4-8.2)
[2023-08-28] MEDS: Metoclopramide 10 MG/2 ML VIAL 5 MG IVP (13:43)
[2023-08-28] MEDS: FAMOTIDINE 20 MG in Normal Saline 100 ML 400 MG IVPB (13:43)
[2023-08-28 13:45] LABS: Troponin I 87 ng/L (<or=60)
[2023-08-28 13:48] LABS: Prothrombin Time 63.7 sec (9.1-11.1)
[2023-08-28 13:59] LABS: INR 7.6 (0.9-1.1)
--- NOTE | 2023-08-28 14:00 | DI.CT_ITS ---
Exam(s) CT THORAX ABD/PEL CTA EXAM: CT THORAX ABD/PEL CTA CLINICAL HISTORY: chest pain,sob, hx of aaa, elevated trop. TECHNIQUE: Imaging Protocol: Axial CT angiography was performed with multi-slice acquisition and m ulti-planar and/or 3D reconstructions. CONTRAST MATERIAL: Intravenous: Omnipaque 350 contrast volume:100 mL Oral: No COMPARISON: CT CT ABDOMEN PELVIS WO/W from 03/02/[address] THORAX ABD/PEL CTA from 08/28/2023 FINDINGS: CHEST: Tracheobronchial tree: Patent where visualized. Pulmonary parenchyma: There are moderate bilateral pleural effusions and subjacent infiltrates presen t. Ground-glass faint opacities are seen in the lungs bilaterally. No architectural distortion. Pulmonary Arteries: No evidence of filling defect to suggest pulmonary emboli. Mediastinum and Yina: No dominant adenopathy or fluid collection. The esophagus is unremarkable. Visualized thyroid: Unremarkable. Pleura: No pneumothorax. Heart: Cardiomegaly. Coronary artery calcification. No pericardial effusion. Aorta: Thoracic aorta non-dilated. Atherosclerosis is present. There is suboptimal opacification of the thoracic aorta but no gross dissection is identified. Soft Tissues: Unremarkable. Bones: Within normal limits for the patient's age. ABDOMEN AND PELVIS: Abdomen: Celiac axis/mesenteric arteries: There is no occlusion. There is less than 50 percent stenosis of th e celiac axis. There is approximately 50 percent stenosis of the superior mesenteric artery at the o rigin. Atherosclerosis. Renal Arteries: No occlusion. Atherosclerosis. Less than 50 percent stenosis. Aorta: There is a aorta iliac stent in place within the [place] abdominal aortic aneurysm. No occlus ion. Pelvis: Iliac Arteries: Atherosclerosis. There are bilateral iliac stents. Common Femoral Arteries: No occlusion. Atherosclerosis. Less than 50 percent stenosis. ABDOMEN: Liver: Normal density. No measurable mass. Gallbladder and Biliary Tract: No radiodense calculus or dilation. Pancreas: Normal density, no abnormal calcifications or inflammatory process. Spleen: Normal. Adrenals: Stable right adrenal nodule. Kidneys: Normal size, contour and axis. No radiodense stones or obstructive uropathy. Stable right re nal cyst. Bowel: Diverticulosis. No evidence of diverticulitis. The stomach is incompletely distended limitin g evaluation. There is no evidence of bowel obstruction or bowel wall thickening. Appendix is unrem arkable. Peritoneal Cavity: No ascites, collection or mesenteric inflammatory response. No free air. Lymph Nodes: Within normal limits. Bones: Within normal limits for the patient's age. Sternal wires are in place. Soft Tissues: Findings of a right inguinal hernia repair. PELVIS: Bladder: Symmetric distention, no gross wall thickening. Reproductive Organs: Enlarged prostate gland. Lymph Nodes: Within normal limits. Bones: Within normal limits for the patient's age. IMPRESSION: 1. The arterial system was poorly opacified and examination was repeated. Please refer to the report on the 2nd CT scan of the chest abdomen and pelvis. 2. No evidence of a pulmonary embolism. 3. Moderate bilateral pleural effusions and mild subjacent infiltrates which may represent atelectasi s or pneumonia. 4. Ground-glass infiltrates in the lungs which may represent pulmonary edema. An infectious process cannot be excluded. 5. Atherosclerosis. 6. Findings were discussed with Aylin Seo at 3:33 p.m. on 08/28/2023. RADIATION DOSE DELIVERED: Total DLP DATA REPOSITORY: All CT scans at this facility are submitted to the National Radiology Data Registry (NRDR) Dose Index Registry (DIR) with the [employer] (ACR). RADIATION OPTIMIZATION: All CT scans at this facility use at least one of these dose optimization te chniques: automated exposure control; mA and/or kV adjustment per patient size (includes targeted exa ms where dose is matched to clinical indication); or iterative reconstruction.
--- NOTE | 2023-08-28 14:40 | DI.CT_ITS ---
Exam(s) CT THORAX ABD/PEL CTA EXAM: CT THORAX ABD/PEL CTA CLINICAL HISTORY: chest abd abd pain. TECHNIQUE: Imaging Protocol: Axial CT angiography was performed with multi-slice acquisition and m ulti-planar and/or 3D reconstructions. CONTRAST MATERIAL: Intravenous: Omnipaque 350 contrast volume:100 mL Oral: No COMPARISON: CT CT ABDOMEN PELVIS W from 02/12/[address] ABDOMEN PELVIS WO/W from 03/02/[address] THORAX ABD/PEL CTA from 08/28/2023 FINDINGS: On the prior examination, the arteries were not well opacified. The patient was repeated with attent ion to the aorta and its branches. CHEST: Aorta: Thoracic aorta non-dilated. No evidence of dissection. Atherosclerosis is present. There is again seen bilateral moderate size pleural effusions and subjacent infiltrate. Cardiomegaly and coronary artery calcification. ABDOMEN AND PELVIS: Abdomen: Celiac axis/mesenteric arteries: There is atherosclerosis. There is less than 50 percent stenosis of the celiac axis and the superior mesenteric artery. Renal Arteries: There is atherosclerosis at the origin of the renal arteries bilaterally. There is l ess than 50 percent stenosis. Aorta: There is atherosclerosis present. There is a aorta bi-iliac stent in place within the patien t's [place] bilobed abdominal aortic aneurysm. There is no evidence of dissection. No evidence of st ent leak Pelvis: Iliac Arteries: There are bilateral iliac stents in place. There is a small amount of leakage of co ntrast into the [place] vessel distal to the inferior most aspect of the left common iliac stent. (Se judi 5, image 945). Common Femoral Arteries: Atherosclerosis. No evidence of dissection. ABDOMEN: Liver: Normal density. No measurable mass. Gallbladder and Biliary Tract: No radiodense calculus or dilation. Pancreas: Normal density, no abnormal calcifications or inflammatory process. Spleen: Normal. Adrenals: No masses seen. Kidneys: Normal size, contour and axis. No radiodense stones or obstructive uropathy. Stable renal cy sts. No follow-up is recommended. Bowel: Diverticulosis of the colon without evidence of acute diverticulitis. No evidence of bowel ob struction or bowel wall thickening. Appendix is unremarkable. Peritoneal Cavity: No ascites, collection or mesenteric inflammatory response. No free air. Lymph Nodes: Within normal limits. Bones: Within normal limits for the patient's age. Soft Tissues: Unremarkable. PELVIS: Bladder: Symmetric distention, no gross wall thickening. Reproductive Organs: Enlarged prostate gland. Lymph Nodes: Within normal limits. Bones: Within normal limits for the patient's age. IMPRESSION: 1. Small outpouching of contrast on the arterial images in the left common iliac artery at/or just di stal to the stent. This may represent a small endoleak. There is no dissection identified. 2. There is a [place] bilobed abdominal aortic aneurysm with an aorta bi-iliac stent in place. There is also a distal right iliac stent. 3. Moderate bilateral pleural effusions and small subjacent infiltrates. 4. Findings were discussed with Fran Garcia at 4:28 p.m. on 08/28/2023. RADIATION DOSE DELIVERED: Total DLP DATA REPOSITORY: All CT scans at this facility are submitted to the National Radiology Data Registry (NRDR) Dose Index Registry (DIR) with the [employer] (ACR). RADIATION OPTIMIZATION: All CT scans at this facility use at least one of these dose optimization te chniques: automated exposure control; mA and/or kV adjustment per patient size (includes targeted exa ms where dose is matched to clinical indication); or iterative reconstruction.
[2023-08-28] MEDS: Omnipaque 350 MG/ML 100 ML BTL 200 ML IJ (14:58)
[2023-08-28] MEDS: Normal Saline - Diluent 50 ML VIAL 100 ML IJ (15:00)
--- NOTE | 2023-08-28 15:36 | ED.GENADUL_ITS ---
Discharge Plan Disposition Patient Disposition: Transfer-Acute Inpatient Care Specific Acute Inpt Facility: [facility] Discharge Details Clinical Impression: CHF (congestive heart failure), Elevated troponin level Primary Care Provider: KIM NUNEZ ED Provider: Fran Worrell Home Meds and New Rx's Prescriptions: No Action gabapentin 100 mg capsule 100 mg PO BID losartan 50 mg tablet 50 mg PO DAILY omeprazole 20 mg capsule,delayed release(DR/EC) 20 mg PO DAILY multivitamin Tablet 1 tab PO DAILY warfarin 3 mg tablet See Rx Instructions PO DAILY Patient Comments: takes 2.5 mg 4 times a week and 5 mg 3 times a week Rx Instructions: takes 2.5mg 4 times a week then 5 mg 3 times a wk. PO daily; acetaminophen [Tylenol] 325 MG tablet 325 - 650 mg PO PRN tamsulosin 0.4 MG capsule 0.4 mg PO DAILY gemfibrozil 600 MG tablet 600 mg PO BID simvastatin 20 MG tablet 20 mg PO DAILY lorazepam 1 MG tablet 1 mg PO PRN PRN metoprolol tartrate 50 mg tablet 50 mg PO BID amlodipine 5 mg tablet Patient Comments: TAKE 1 TABLET BY MOUTH DAILY Discharge Data Discharge Date/Time-TO BE ENTERED AT DEPARTURE: 08/28/23 22:38 Medical Decision Making 77-year-old male presenting with report a shortness of breath, orthopnea, hiccups, does not endorse chest pain, EKG shows new right bundle branch block from 2020, last echocardiogram in 2019 with an ejection fraction of 40 to 44%, peripheral edema, 2+ bilaterally, no tenderness, no abdominal tenderness, denies known weight gain. Endorses cough and cold symptoms, but on exam today, in supine position patient become short of breath, nauseous, and developed hiccups, no evidence of acute ischemia or injury, troponin mildly elevated at 87, will repeat 3-hour ayush CTA chest abdomen and pelvis was ordered as patient does have a history of AAA, INR of 7.6, PTT of 63, does not endorse any active bleeding ct with pulmonary edema, less likely pneumonia Patient will need cardiology consultation and admission for diuresis, I suspect he is in CHF, causing his symptoms Troponin likely elevated secondary to troponin leak/ type 2nstemi in the presence of CHF Will not administer aspirin at this time as INR 7.6 without active bleeding, will transition care to oncoming provider pending repeat troponin and cardiology consultation of note, prior to sign out, pt having several runs of bi and trigeminy in the presence of a RBBB, no rate >110 and low suspicion for VTAC care transitioned to [facility] pending cta and cardiology consultation with admission vs transfer HPI General Date/Time Provider Initiated Documentation: 08/28/23 12:58 . HPI Narrative: 77-year-old male with history of chronic anticoagulation secondary to atrial fib rillation presents with report of shortness of breath, cough, upper respiratory symptoms in August 13, treating with supportive care, feeling worse, orthopnea, hiccups with any supine position over the course of the past 48 hours, presents for return assessment. Peripheral edema per patient. Denies any chest discomfort although he does endorse pain with hiccups only. Denies history of similar symptoms in the past. Denies diuresis. Has been taking cough and cold medication per patient. Denies any additional change in meds, and has not taken any [id number] new additional meds. Denies taking his prescribed meds today. Denies any pain in his calfs. Denies change in diet. Denies recent echocardiogram or stress test. Denies any current pain at all. Mostly concerned as with any change in position, specifically supine position he becomes short of breath, nauseous, and develops hiccups. Related Data Home Medications Medication Instructions Recorded Confirmed lorazepam 1 mg tablet 1 mg PO PRN PRN 02/08/13 08/28/23 acetaminophen 325 mg tablet 325 - 650 mg PO PRN 06/26/15 05/27/23 (Tylenol) tamsulosin 0.4 mg capsule 0.4 mg PO DAILY 06/26/15 08/28/23 gemfibrozil 600 mg tablet 600 mg PO BID 10/13/17 08/28/23 simvastatin 20 mg tablet 20 mg PO DAILY 10/13/17 08/28/23 multivitamin 1 tab PO DAILY 01/10/20 08/28/23 omeprazole 20 mg capsule,delayed 20 mg PO DAILY 01/10/20 08/28/23 release metoprolol tartrate 50 mg tablet 50 mg PO BID 01/12/21 08/28/23 warfarin 3 mg tablet See Rx Instructions PO DAILY 03/08/21 08/28/23 gabapentin 100 mg capsule 100 mg PO BID 05/24/21 08/28/23 losartan 50 mg tablet 50 mg PO DAILY 11/26/22 08/28/23 amlodipine 5 mg tablet mg 08/28/23 Allergies Allergy/AdvReac Type Severity Reaction Status Date / Time chlorpheniramine Allergy Intermediate rash Verified 08/28/23 12:54 [From Tussionex] hydrocodone [From Tussionex] Allergy Mild rash Verified 08/28/23 12:54 oxycodone Allergy Verified 08/28/23 12:54 escitalopram oxalate AdvReac Severe suidial Verified 08/28/23 12:54 [From Lexapro] ideations tramadol AdvReac Mild Verified 08/28/23 12:54 General Stated Complaint: RespSymp LANA: 3 PFSH All Active Problems (Updated 08/28/23 @ 18:30 by SERGE David) Elevated troponin level (Acute) CHF (congestive heart failure) (Chronic) Melanoma (Acute) Skin lesion of cheek (Acute) Internal derangement of left knee (Acute) Left ventricular aneurysm (Acute) Hallux valgus (acquired), left foot (Acute) Hallux valgus (acquired), right foot (Acute) Hip pain, right (Acute) RLQ abdominal pain (Acute) Abnormal CT of the abdomen (Acute) Hiatal hernia with GERD (Acute) Diverticula of colon (Acute) pandiverticula - severe diverticula that carry all the way over to the cecum Recurrent right inguinal hernia (Acute) Adenomatous colon polyp (Acute) GERD (gastroesophageal reflux disease) (Chronic) Hx of hyperlipidemia (Acute) BPH loc w urin obs/LUTS (Acute) Arthritis of right hip (Acute 10/13/17) Atherosclerotic cardiovascular disease (Acute) Peripheral vascular disease (Chronic) 2013: [facility] [place]: Left iliofemoral endarterectomy with patch angioplasty, Left femoral->peroneal bypass. 11/24/13 [facility] [place]: Left external iliac artery stentgraft placed, ligation left leg bypass graft fistula. HTN (hypertension) (Chronic) Atrial fibrillation (Chronic) Medical History AAA (abdominal aortic aneurysm) 02/2021: 3.9cm AAA Abdominal pain Adrenal nodule Anxiety Atypical nevus CAD (coronary artery disease) 03/2020 CABG X6, LV aneurysm repair, RANDELL removal Elevated hemoglobin A1c Enlarged prostate Osteoarthritis Pelvic pain Surgical History History of colonoscopy with polypectomy (~06/05/21) History of esophagogastroduodenoscopy (EGD) (~06/05/21) History of open heart surgery Pt states placed 4 or 5 stents post heart attack - 2020 History of right inguinal hernia repair (~06/26/21) History of surgery on extremity bilat lower extremity bypass/vascular History of tonsillectomy and adenoidectomy Hx of colonoscopy Hx of hernia repair x5 Social History Smoking/Tobacco Use Status: Former Tobacco Use Quit Date: 09/08/95 Smoking risk assessment performed?: Yes Alcohol Intake: current Alcohol Intake frequency: a few times a week Alcohol type: wine Drug use: Never Substance use type: does not use Housing: house Current gender identity: male What type of physical activity do you participate in: additional Details: 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[employer]), PT Do you feel safe at home: Yes Do you feel safe in your relationship?: Yes Course Vital Signs Vital signs: Vital Signs Temperature 36.4 C L 08/28/23 12:26 Pulse 113 H 08/28/23 12:26 Respiratory Rate 20 08/28/23 12:26 Blood Pressure 162/108 H 08/28/23 12:26 Pulse Oximetry 95 08/28/23 12:26 Temperature 36.4 C L 08/28/23 12:26 Temperature Source Temporal Artery Scan 08/28/23 12:26 Pulse 113 H 08/28/23 12:26 Pulse 105 H 08/28/23 13:20 Respiratory Rate 24 08/28/23 13:20 Respiratory Effort Short of Breath 08/28/23 12:42 Respiratory Depth Deep 08/28/23 12:42 Blood Pressure 162/108 H 08/28/23 12:26 Blood Pressure Position Sitting 08/28/23 12:26 Pulse Oximetry 95 08/28/23 13:20 Oxygen Delivery Method Room Air 08/28/23 12:26 Oxygen Flow Rate 0 08/28/23 12:26 Pain Level 0 08/28/23 12:26 Lab/Test Results Lab/Test Results: Laboratory Tests Range/Units 08/28/23 08/28/23 08/28/23 13:13 13:13 13:13 WBC (4.4-10.8) 10^3/uL 9.32 RBC (4.36-5.78) 10^6/uL 4.65 Hgb (13.5-17.5) g/dL 14.8 Hct (40.0-50.0) % 44.9 MCV (80-95) fL 97 H MCH (27.0-33.0) pg 31.8 MCHC (32.0-36.0) % 33.0 RDW (11.8-14.1) % 14.5 H Plt Count (130-400) 10^3/uL 402 H MPV (8.0-11.0) fL 9.5 Immature Gran % 0.4 Neutrophils % 85.1 Lymphocytes % 9.5 Monocytes % 4.6 Eosinophils % 0.1 Basophils % 0.3 Nucleated RBC % (0.0-0.3) % 0.0 Absolute Neutrophils (1.2-6.7) 10^3/uL 7.92 H Absolute Lymphocytes (1.2-3.4) 10^3/uL 0.89 L Absolute Monocytes (0.1-0.8) 10^3/uL 0.43 Absolute Eosinophils (0.0-0.7) 10^3/uL 0.01 Absolute Basophils (0.0-0.2) 10^3/uL 0.03 PT (9.1-11.1) sec 63.7 H INR (0.9-1.1) 7.6 H* Sodium Cancelled 135 L Potassium Cancelled 3.6 Chloride Cancelled Carbon Dioxide Anion Gap BUN Creatinine Est GFR (CKD-EPI 2020) Glucose Calcium Total Bilirubin AST ALT Alkaline Phosphatase Troponin I (<or=60) ng/L NT-Pro-B Natriuret Pep (<300) pg/mL Total Protein Albumin Range/Units 08/28/23 08/28/23 08/28/23 13:13 13:13 13:13 WBC (4.4-10.8) 10^3/uL RBC (4.36-5.78) 10^6/uL Hgb (13.5-17.5) g/dL Hct (40.0-50.0) % MCV (80-95) fL MCH (27.0-33.0) pg MCHC (32.0-36.0) % RDW (11.8-14.1) % Plt Count (130-400) 10^3/uL MPV (8.0-11.0) fL Immature Gran % Neutrophils % Lymphocytes % Monocytes % Eosinophils % Basophils % Nucleated RBC % (0.0-0.3) % Absolute Neutrophils (1.2-6.7) 10^3/uL Absolute Lymphocytes (1.2-3.4) 10^3/uL Absolute Monocytes (0.1-0.8) 10^3/uL Absolute Eosinophils (0.0-0.7) 10^3/uL Absolute Basophils (0.0-0.2) 10^3/uL PT (9.1-11.1) sec INR (0.9-1.1) Sodium Potassium Chloride 98 Carbon Dioxide Cancelled 21.5 Anion Gap Cancelled 15.5 H BUN Cancelled Creatinine Est GFR (CKD-EPI 2020) Glucose Calcium Total Bilirubin AST ALT Alkaline Phosphatase Troponin I (<or=60) ng/L NT-Pro-B Natriuret Pep (<300) pg/mL Total Protein Albumin Range/Units 08/28/23 08/28/23 08/28/23 13:13 13:13 13:13 WBC (4.4-10.8) 10^3/uL RBC (4.36-5.78) 10^6/uL Hgb (13.5-17.5) g/dL Hct (40.0-50.0) % MCV (80-95) fL MCH (27.0-33.0) pg MCHC (32.0-36.0) % RDW (11.8-14.1) % Plt Count (130-400) 10^3/uL MPV (8.0-11.0) fL Immature Gran % Neutrophils % Lymphocytes % Monocytes % Eosinophils % Basophils % Nucleated RBC % (0.0-0.3) % Absolute Neutrophils (1.2-6.7) 10^3/uL Absolute Lymphocytes (1.2-3.4) 10^3/uL Absolute Monocytes (0.1-0.8) 10^3/uL Absolute Eosinophils (0.0-0.7) 10^3/uL Absolute Basophils (0.0-0.2) 10^3/uL PT (9.1-11.1) sec INR (0.9-1.1) Sodium Potassium Chloride Carbon Dioxide Anion Gap BUN 22 H Creatinine Cancelled 1.4 H Est GFR (CKD-EPI 2020) Cancelled 52.09 Glucose Cancelled Calcium Total Bilirubin AST ALT Alkaline Phosphatase Troponin I (<or=60) ng/L NT-Pro-B Natriuret Pep (<300) pg/mL Total Protein Albumin Range/Units 08/28/23 08/28/23 08/28/23 13:13 13:13 13:13 WBC (4.4-10.8) 10^3/uL RBC (4.36-5.78) 10^6/uL Hgb (13.5-17.5) g/dL Hct (40.0-50.0) % MCV (80-95) fL MCH (27.0-33.0) pg MCHC (32.0-36.0) % RDW (11.8-14.1) % Plt Count (130-400) 10^3/uL MPV (8.0-11.0) fL Immature Gran % Neutrophils % Lymphocytes % Monocytes % Eosinophils % Basophils % Nucleated RBC % (0.0-0.3) % Absolute Neutrophils (1.2-6.7) 10^3/uL Absolute Lymphocytes (1.2-3.4) 10^3/uL Absolute Monocytes (0.1-0.8) 10^3/uL Absolute Eosinophils (0.0-0.7) 10^3/uL Absolute Basophils (0.0-0.2) 10^3/uL PT (9.1-11.1) sec INR (0.9-1.1) Sodium Potassium Chloride Carbon Dioxide Anion Gap BUN Creatinine Est GFR (CKD-EPI 2020) Glucose 151 H Calcium Cancelled 9.6 Total Bilirubin Cancelled 1.4 H AST Cancelled ALT Alkaline Phosphatase Troponin I (<or=60) ng/L NT-Pro-B Natriuret Pep (<300) pg/mL Total Protein Albumin Range/Units 08/28/23 08/28/23 08/28/23 13:13 13:13 13:13 WBC (4.4-10.8) 10^3/uL RBC (4.36-5.78) 10^6/uL Hgb (13.5-17.5) g/dL Hct (40.0-50.0) % MCV (80-95) fL MCH (27.0-33.0) pg MCHC (32.0-36.0) % RDW (11.8-14.1) % Plt Count (130-400) 10^3/uL MPV (8.0-11.0) fL Immature Gran % Neutrophils % Lymphocytes % Monocytes % Eosinophils % Basophils % Nucleated RBC % (0.0-0.3) % Absolute Neutrophils (1.2-6.7) 10^3/uL Absolute Lymphocytes (1.2-3.4) 10^3/uL Absolute Monocytes (0.1-0.8) 10^3/uL Absolute Eosinophils (0.0-0.7) 10^3/uL Absolute Basophils (0.0-0.2) 10^3/uL PT (9.1-11.1) sec INR (0.9-1.1) Sodium Potassium Chloride Carbon Dioxide Anion Gap BUN Creatinine Est GFR (CKD-EPI 2020) Glucose Calcium Total Bilirubin AST 24 ALT Cancelled 30 Alkaline Phosphatase Cancelled 100 Troponin I (<or=60) ng/L 87 H* NT-Pro-B Natriuret Pep (<300) pg/mL 6681 H Total Protein Cancelled Albumin Range/Units 08/28/23 08/28/23 13:13 13:13 WBC (4.4-10.8) 10^3/uL RBC (4.36-5.78) 10^6/uL Hgb (13.5-17.5) g/dL Hct (40.0-50.0) % MCV (80-95) fL MCH (27.0-33.0) pg MCHC (32.0-36.0) % RDW (11.8-14.1) % Plt Count (130-400) 10^3/uL MPV (8.0-11.0) fL Immature Gran % Neutrophils % Lymphocytes % Monocytes % Eosinophils % Basophils % Nucleated RBC % (0.0-0.3) % Absolute Neutrophils (1.2-6.7) 10^3/uL Absolute Lymphocytes (1.2-3.4) 10^3/uL Absolute Monocytes (0.1-0.8) 10^3/uL Absolute Eosinophils (0.0-0.7) 10^3/uL Absolute Basophils (0.0-0.2) 10^3/uL PT (9.1-11.1) sec INR (0.9-1.1) Sodium Potassium Chloride Carbon Dioxide Anion Gap BUN Creatinine Est GFR (CKD-EPI 2020) Glucose Calcium Total Bilirubin AST ALT Alkaline Phosphatase Troponin I (<or=60) ng/L NT-Pro-B Natriuret Pep (<300) pg/mL Total Protein 7.5 Albumin Cancelled 3.7 Sign Out Sign Out Data: Sign Out Comment: pending repeat troponin and cardiology consultation, chf/pulm edema, admission for diuresis and echo Last updated by Aylin Seo PA at 08/28/23 15:57
[2023-08-28 15:45] LABS: Bilirubin Moderate (Negative); Blood Negative (Negative); Clarity Clear (Clear); Glucose Negative (Negative); Ketones Trace mg/dL (Negative); Leukocyte Esterase Negative (Negative); Nitrite Negative (Negative); Specific Gravity >= 1.030 (1.005-1.025); Urobilinogen 0.2 mg/dL (Up to 0.2); pH 5.5 (5-8)
--- NOTE | 2023-08-28 16:00 | RT.EKG_ITS ---
APPROVED REPORT Exam: Resting ECG Reason for Exam: possible runs of Vtach Patient Location: E HR:99 bpm ECG Measurements Heart Rate 99 AXIS OR [id number] P [id number] QRSd 159 QRS -68 QT 404 T 85 QTc 520 Conclusion Atrial fibrillation...? atrial activity Right bundle branch block...QRSd>120, terminal axis(90,270) Rate controlled atrial fibrillation with right bundle left axis?bifascicular block. Persistent T wave inversions V2 and 3.Mildly improved ST segments in leads I and aVL.
[2023-08-28 16:01] LABS: Epithelial Cells Rare HPF (Negative); RBC 0-2 HPF (0-2); WBC 0-2 HPF (0-5)
--- NOTE | 2023-08-28 16:01 | W.EDPROG ---
Date of service: 08/28/23 Time of Service: 16:02 Medical Decision Making This dictation utilizes [id number] dictation software and may contain unedited grammatical errors. Patient signed-out to me with repeat troponin pending and Cardiology consult. Essentially this 77 y/o M presents to ED today with a chief complaint of respiratory symptoms ongoing, on tessalon perles- worse when laying flat. He feels a fluttering palpitations, he had a bypass at [facility] in 2018, he feels he has been belching a lot. He had noted tachycardia in the 1-teens, and was given his normal PO dose of metoprolol (50mg BID) with rate control around 100. Has been given 40mg IV Lasix and is having his ins/outs monitored at time of shift change. Has known atrial fibrillation, on Coumadin supratherapeutic at 7.6- history of AA with CTAs showing no dissection or bleeding, no focal PNA, but has large pleural effusions likely in the setting of new CHF with an elevated BNP of 6600. Last ECHO 2019 with an EF of 40-44%. His initial troponin was 87, repeat pending draw moments after sign-out. Patient has had 2 EKGs prior to sign-out showing a moderately wide irregular tachycardia, with a new RBBB (compared to prior study 01/2020)- QRS around 148. Patient has not been experiencing any chest pain throughout acute episode, does report fluttering and belching. Patient was noted to be going into runs of polymorphic wide tachycardia on monitor at time of shift change, BP 130/81. Obtained new EKG, magnesium level for concern for polymorphic tachyarrhythmia ?new bundle block for abberacy with AV guy blockage potential to cause unstable wide irregular rhythm, and potential for Torsades- though none was seen on monitor here in ED. Pads were placed on the patient. patient is still 105bpm, no complaints. He was given 1gm Magnesium IV. His CTA read was called back by Radiologist Dr. Roman post-sign out with an area of known AAA with stent and an area of pooling contrast, question some sort of pseudoaneurysm with no leaking, and good distal flow. Repeat troponin is 170 and I have a high suspicion for an ischemic pathology - troponin has doubled in 3 hours, not typical of CHF exacerbation without hypoxia. Differential / pathologies of concern include Ventricular Tachycardia vs polymorphic SVT or RVR w abberancy/AVNRT, NSTEMI, new onset CHF, supratherapeutic INR. Diagnostic studies of: see Aylin Seo PA-C's prior note for her work-up -added magnesium level. Interventions of: see Aylin Seo PA-C's note for prior interventions. -attempted rhythm strips to capture these runs of polymorphic tachyarrhythmia, sent to [facility]. Cardiology Dr. Mejia does not feel this is VT. Consults with [facility] : Their records show he has history of RBBB, they show an old CT 2020 with possible endoleak, they recommend IV diuresis and ECHO. Our facility has no capacity tonight- and have no ability to have a Cardiolgy-read ECHO study tomorrow. ED Course/Assessment/Plan: 77-year-old male was signed out to me with an elevated troponin in the setting of likely new onset CHF with a BNP of 6600, his initial troponin was 87, upper limit of normal 50. He has bilateral pleural effusions, he presented with likely mild A-fib with RVR in the 1 teens, he was given his normal home dose of p.o. 50 mg metoprolol, his EKG was noted to have a new right bundle branch block- per our records. I noted runs of wide complex tachy polymorphic arrhythmia more sustained than runs bi/trigeminy, magnesium level needed to be drawn but he was given 1 g empirically, magnesium level 1.6, plan to give another gram of magnesium, his CTA shows a possible endoleak versus pooling contrast amna-to his prior AAA stent with no dissection, which [facility] confirms was there at their last CT scan. There is a potential concern for torsades with the patient's AV guy blocking agents and preexcitable A-fib with new bundle branch block as well as his ischemic event that is ongoing with a repeat troponin of 170 which nearly doubled from first value vs. CHF related strain. Patient is not having acute chest pain or hypoxia and appears to be mentating well and has good color here in the department. He states he is a full code, explained to him that he likely needs to be transferred to [facility] for cardiology evaluation. Patient was in agreement with this plan. Third troponin is 178 still trending up, though less steeply. 1830- [facility] accepts pending Cardiology bed with Dr. Fitzgerald as accepting. 2218, EMS arrives for transfer, no acute events. Disposition of CHF (Congestive Heart Failure), Elevated Troponin Level. Medical Records Medical records reviewed: Yes I reviewed the patient's medical records. Imaging Data Radiologic Study: Imaging: CT Scan Radiologist's impression: EXAM: CT THORAX ABD/PEL CTA REVISED READ: CLINICAL HISTORY: chest abd abd pain. TECHNIQUE: Imaging Protocol: Axial CT angiography was performed with multi-slice acquisition and multi-planar and/or 3D reconstructions. CONTRAST MATERIAL: Intravenous: Omnipaque 350 contrast volume:100 mL Oral: No COMPARISON: CT CT ABDOMEN PELVIS W from 02/12/[address] ABDOMEN PELVIS WO/W from 03/02/[address] THORAX ABD/PEL CTA from 08/28/2023 FINDINGS: On the prior examination, the arteries were not well opacified. The patient was repeated with attention to the aorta and its branches. CHEST: Aorta: Thoracic aorta non-dilated. No evidence of dissection. Atherosclerosis is present. There is again seen bilateral moderate size pleural effusions and subjacent infiltrate. Cardiomegaly and coronary artery calcification. ABDOMEN AND PELVIS: Abdomen: Celiac axis/mesenteric arteries: There is atherosclerosis. There is less than 50 percent stenosis of the celiac axis and the superior mesenteric artery. Renal Arteries: There is atherosclerosis at the origin of the renal arteries bilaterally. There is less than 50 percent stenosis. Aorta: There is atherosclerosis present. There is a aorta bi-iliac stent in place within the patient's [place] bilobed abdominal aortic aneurysm. There is no evidence of dissection. No evidence of stent leak Pelvis: Iliac Arteries: There are bilateral iliac stents in place. There is a small amount of leakage of contrast into the [place] vessel distal to the inferior most aspect of the left common iliac stent. (Series 5, image 945). Common Femoral Arteries: Atherosclerosis. No evidence of dissection. ABDOMEN: Liver: Normal density. No measurable mass. Gallbladder and Biliary Tract: No radiodense calculus or dilation. Pancreas: Normal density, no abnormal calcifications or inflammatory process. Spleen: Normal. Adrenals: No masses seen. Kidneys: Normal size, contour and axis. No radiodense stones or obstructive uropathy. Stable renal cysts. No follow-up is recommended. Bowel: Diverticulosis of the colon without evidence of acute diverticulitis. No evidence of bowel obstruction or bowel wall thickening. Appendix is unremarkable. Peritoneal Cavity: No ascites, collection or mesenteric inflammatory response. No free air. Lymph Nodes: Within normal limits. Bones: Within normal limits for the patient's age. Soft Tissues: Unremarkable. PELVIS: Bladder: Symmetric distention, no gross wall thickening. Reproductive Organs: Enlarged prostate gland. Lymph Nodes: Within normal limits. Bones: Within normal limits for the patient's age. IMPRESSION: 1. Small outpouching of contrast on the arterial images in the left common iliac artery at/or just distal to the stent. This may represent a small endoleak. There is no dissection identified. 2. There is a [place] bilobed abdominal aortic aneurysm with an aorta bi-iliac stent in place. There is also a distal right iliac stent. 3. Moderate bilateral pleural effusions and small subjacent infiltrates. 4. Findings were discussed with Fran Garcia at 4:28 p.m. on 08/28/2023. EXAM: CT THORAX ABD/PEL CTA CLINICAL HISTORY: chest pain,sob, hx of aaa, elevated trop. TECHNIQUE: Imaging Protocol: Axial CT angiography was performed with multi-slice acquisition and multi-planar and/or 3D reconstructions. CONTRAST MATERIAL: Intravenous: Omnipaque 350 contrast volume:100 mL Oral: No COMPARISON: CT CT ABDOMEN PELVIS WO/W from 03/02/[address] THORAX ABD/PEL CTA from 08/28/2023 FINDINGS: CHEST: Tracheobronchial tree: Patent where visualized. Pulmonary parenchyma: There are moderate bilateral pleural effusions and subjacent infiltrates present. Ground-glass faint opacities are seen in the lungs bilaterally. No architectural distortion. Pulmonary Arteries: No evidence of filling defect to suggest pulmonary emboli. Mediastinum and Yina: No dominant adenopathy or fluid collection. The esophagus is unremarkable. Visualized thyroid: Unremarkable. Pleura: No pneumothorax. Heart: Cardiomegaly. Coronary artery calcification. No pericardial effusion. Aorta: Thoracic aorta non-dilated. Atherosclerosis is present. There is suboptimal opacification of the thoracic aorta but no gross dissection is identified. Soft Tissues: Unremarkable. Bones: Within normal limits for the patient's age. ABDOMEN AND PELVIS: Abdomen: Celiac axis/mesenteric arteries: There is no occlusion. There is less than 50 percent stenosis of the celiac axis. There is approximately 50 percent stenosis of the superior mesenteric artery at the origin. Atherosclerosis. Renal Arteries: No occlusion. Atherosclerosis. Less than 50 percent stenosis. Aorta: There is a aorta iliac stent in place within the [place] abdominal aortic aneurysm. No occlusion. Pelvis: Iliac Arteries: Atherosclerosis. There are bilateral iliac stents. Common Femoral Arteries: No occlusion. Atherosclerosis. Less than 50 percent stenosis. ABDOMEN: Liver: Normal density. No measurable mass. Gallbladder and Biliary Tract: No radiodense calculus or dilation. Pancreas: Normal density, no abnormal calcifications or inflammatory process. Spleen: Normal. Adrenals: Stable right adrenal nodule. Kidneys: Normal size, contour and axis. No radiodense stones or obstructive uropathy. Stable right renal cyst. Bowel: Diverticulosis. No evidence of diverticulitis. The stomach is incompletely distended limiting evaluation. There is no evidence of bowel obstruction or bowel wall thickening. Appendix is unremarkable. Peritoneal Cavity: No ascites, collection or mesenteric inflammatory response. No free air. Lymph Nodes: Within normal limits. Bones: Within normal limits for the patient's age. Sternal wires are in place. Soft Tissues: Findings of a right inguinal hernia repair. PELVIS: Bladder: Symmetric distention, no gross wall thickening. Reproductive Organs: Enlarged prostate gland. Lymph Nodes: Within normal limits. Bones: Within normal limits for the patient's age. IMPRESSION: 1. The arterial system was poorly opacified and examination was repeated. Please refer to the report on the 2nd CT scan of the chest abdomen and pelvis. 2. No evidence of a pulmonary embolism. 3. Moderate bilateral pleural effusions and mild subjacent infiltrates which may represent atelectasis or pneumonia. 4. Ground-glass infiltrates in the lungs which may represent pulmonary edema. An infectious process cannot be excluded. 5. Atherosclerosis. 6. Findings were discussed with Aylin Seo at 3:33 p.m. on 08/28/2023. Lab Data Lab results reviewed: Yes I reviewed the patient's lab results. Labs: Laboratory Tests Range/Units 08/28/23 08/28/23 08/28/23 13:13 13:13 13:13 WBC (4.4-10.8) 10^3/uL 9.32 RBC (4.36-5.78) 10^6/uL 4.65 Hgb (13.5-17.5) g/dL 14.8 Hct (40.0-50.0) % 44.9 MCV (80-95) fL 97 H MCH (27.0-33.0) pg 31.8 MCHC (32.0-36.0) % 33.0 RDW (11.8-14.1) % 14.5 H Plt Count (130-400) 10^3/uL 402 H MPV (8.0-11.0) fL 9.5 Immature Gran % 0.4 Neutrophils % 85.1 Lymphocytes % 9.5 Monocytes % 4.6 Eosinophils % 0.1 Basophils % 0.3 Nucleated RBC % (0.0-0.3) % 0.0 Absolute Neutrophils (1.2-6.7) 10^3/uL 7.92 H Absolute Lymphocytes (1.2-3.4) 10^3/uL 0.89 L Absolute Monocytes (0.1-0.8) 10^3/uL 0.43 Absolute Eosinophils (0.0-0.7) 10^3/uL 0.01 Absolute Basophils (0.0-0.2) 10^3/uL 0.03 PT (9.1-11.1) sec 63.7 H INR (0.9-1.1) 7.6 H* Sodium Cancelled 135 L Potassium Cancelled 3.6 Chloride Cancelled Carbon Dioxide Anion Gap BUN Creatinine Est GFR (CKD-EPI 2020) Glucose Calcium Magnesium (1.8-2.4) mg/dL Total Bilirubin AST ALT Alkaline Phosphatase Troponin I (<or=60) ng/L NT-Pro-B Natriuret Pep (<300) pg/mL Total Protein Albumin Urine Color (Yellow) Urine Clarity (Clear) Urine pH (5-8) Ur Specific [place] (1.005-1.025) Urine Protein (Negative) mg/dL Urine Ketones (Negative) mg/dL Urine Blood (Negative) Urine Nitrite (Negative) Urine Bilirubin (Negative) Urine Urobilinogen (Up to 0.2) mg/dL Ur Leukocyte Esterase (Negative) Urine RBC (0-2) HPF Urine WBC (0-5) HPF Ur Epithelial Cells (Negative) HPF Urine Crystals (Negative) HPF Urine Bacteria (Negative) HPF Urine Mucus (Negative) Urine Other (Negative) Ur Culture Indicated? Urine Glucose (Negative) mg/dL COVID-19 Source SARS-CoV-2 (PCR) (Negative) Range/Units 08/28/23 08/28/23 08/28/23 13:13 13:13 13:13 WBC (4.4-10.8) 10^3/uL RBC (4.36-5.78) 10^6/uL Hgb (13.5-17.5) g/dL Hct (40.0-50.0) % MCV (80-95) fL MCH (27.0-33.0) pg MCHC (32.0-36.0) % RDW (11.8-14.1) % Plt Count (130-400) 10^3/uL MPV (8.0-11.0) fL Immature Gran % Neutrophils % Lymphocytes % Monocytes % Eosinophils % Basophils % Nucleated RBC % (0.0-0.3) % Absolute Neutrophils (1.2-6.7) 10^3/uL Absolute Lymphocytes (1.2-3.4) 10^3/uL Absolute Monocytes (0.1-0.8) 10^3/uL Absolute Eosinophils (0.0-0.7) 10^3/uL Absolute Basophils (0.0-0.2) 10^3/uL PT (9.1-11.1) sec INR (0.9-1.1) Sodium Potassium Chloride 98 Carbon Dioxide Cancelled 21.5 Anion Gap Cancelled 15.5 H BUN Cancelled Creatinine Est GFR (CKD-EPI 2020) Glucose Calcium Magnesium (1.8-2.4) mg/dL Total Bilirubin AST ALT Alkaline Phosphatase Troponin I (<or=60) ng/L NT-Pro-B Natriuret Pep (<300) pg/mL Total Protein Albumin Urine Color (Yellow) Urine Clarity (Clear) Urine pH (5-8) Ur Specific [place] (1.005-1.025) Urine Protein (Negative) mg/dL Urine Ketones (Negative) mg/dL Urine Blood (Negative) Urine Nitrite (Negative) Urine Bilirubin (Negative) Urine Urobilinogen (Up to 0.2) mg/dL Ur Leukocyte Esterase (Negative) Urine RBC (0-2) HPF Urine WBC (0-5) HPF Ur Epithelial Cells (Negative) HPF Urine Crystals (Negative) HPF Urine Bacteria (Negative) HPF Urine Mucus (Negative) Urine Other (Negative) Ur Culture Indicated? Urine Glucose (Negative) mg/dL COVID-19 Source SARS-CoV-2 (PCR) (Negative) Range/Units 08/28/23 08/28/23 08/28/23 13:13 13:13 13:13 WBC (4.4-10.8) 10^3/uL RBC (4.36-5.78) 10^6/uL Hgb (13.5-17.5) g/dL Hct (40.0-50.0) % MCV (80-95) fL MCH (27.0-33.0) pg MCHC (32.0-36.0) % RDW (11.8-14.1) % Plt Count (130-400) 10^3/uL MPV (8.0-11.0) fL Immature Gran % Neutrophils % Lymphocytes % Monocytes % Eosinophils % Basophils % Nucleated RBC % (0.0-0.3) % Absolute Neutrophils (1.2-6.7) 10^3/uL Absolute Lymphocytes (1.2-3.4) 10^3/uL Absolute Monocytes (0.1-0.8) 10^3/uL Absolute Eosinophils (0.0-0.7) 10^3/uL Absolute Basophils (0.0-0.2) 10^3/uL PT (9.1-11.1) sec INR (0.9-1.1) Sodium Potassium Chloride Carbon Dioxide Anion Gap BUN 22 H Creatinine Cancelled 1.4 H Est GFR (CKD-EPI 2020) Cancelled 52.09 Glucose Cancelled Calcium Magnesium (1.8-2.4) mg/dL Total Bilirubin AST ALT Alkaline Phosphatase Troponin I (<or=60) ng/L NT-Pro-B Natriuret Pep (<300) pg/mL Total Protein Albumin Urine Color (Yellow) Urine Clarity (Clear) Urine pH (5-8) Ur Specific [place] (1.005-1.025) Urine Protein (Negative) mg/dL Urine Ketones (Negative) mg/dL Urine Blood (Negative) Urine Nitrite (Negative) Urine Bilirubin (Negative) Urine Urobilinogen (Up to 0.2) mg/dL Ur Leukocyte Esterase (Negative) Urine RBC (0-2) HPF Urine WBC (0-5) HPF Ur Epithelial Cells (Negative) HPF Urine Crystals (Negative) HPF Urine Bacteria (Negative) HPF Urine Mucus (Negative) Urine Other (Negative) Ur Culture Indicated? Urine Glucose (Negative) mg/dL COVID-19 Source SARS-CoV-2 (PCR) (Negative) Range/Units 08/28/23 08/28/23 08/28/23 13:13 13:13 13:13 WBC (4.4-10.8) 10^3/uL RBC (4.36-5.78) 10^6/uL Hgb (13.5-17.5) g/dL Hct (40.0-50.0) % MCV (80-95) fL MCH (27.0-33.0) pg MCHC (32.0-36.0) % RDW (11.8-14.1) % Plt Count (130-400) 10^3/uL MPV (8.0-11.0) fL Immature Gran % Neutrophils % Lymphocytes % Monocytes % Eosinophils % Basophils % Nucleated RBC % (0.0-0.3) % Absolute Neutrophils (1.2-6.7) 10^3/uL Absolute Lymphocytes (1.2-3.4) 10^3/uL Absolute Monocytes (0.1-0.8) 10^3/uL Absolute Eosinophils (0.0-0.7) 10^3/uL Absolute Basophils (0.0-0.2) 10^3/uL PT (9.1-11.1) sec INR (0.9-1.1) Sodium Potassium Chloride Carbon Dioxide Anion Gap BUN Creatinine Est GFR (CKD-EPI 2020) Glucose 151 H Calcium Cancelled 9.6 Magnesium (1.8-2.4) mg/dL Total Bilirubin Cancelled 1.4 H AST Cancelled ALT Alkaline Phosphatase Troponin I (<or=60) ng/L NT-Pro-B Natriuret Pep (<300) pg/mL Total Protein Albumin Urine Color (Yellow) Urine Clarity (Clear) Urine pH (5-8) Ur Specific [place] (1.005-1.025) Urine Protein (Negative) mg/dL Urine Ketones (Negative) mg/dL Urine Blood (Negative) Urine Nitrite (Negative) Urine Bilirubin (Negative) Urine Urobilinogen (Up to 0.2) mg/dL Ur Leukocyte Esterase (Negative) Urine RBC (0-2) HPF Urine WBC (0-5) HPF Ur Epithelial Cells (Negative) HPF Urine Crystals (Negative) HPF Urine Bacteria (Negative) HPF Urine Mucus (Negative) Urine Other (Negative) Ur Culture Indicated? Urine Glucose (Negative) mg/dL COVID-19 Source SARS-CoV-2 (PCR) (Negative) Range/Units 08/28/23 08/28/23 08/28/23 13:13 13:13 13:13 WBC (4.4-10.8) 10^3/uL RBC (4.36-5.78) 10^6/uL Hgb (13.5-17.5) g/dL Hct (40.0-50.0) % MCV (80-95) fL MCH (27.0-33.0) pg MCHC (32.0-36.0) % RDW (11.8-14.1) % Plt Count (130-400) 10^3/uL MPV (8.0-11.0) fL Immature Gran % Neutrophils % Lymphocytes % Monocytes % Eosinophils % Basophils % Nucleated RBC % (0.0-0.3) % Absolute Neutrophils (1.2-6.7) 10^3/uL Absolute Lymphocytes (1.2-3.4) 10^3/uL Absolute Monocytes (0.1-0.8) 10^3/uL Absolute Eosinophils (0.0-0.7) 10^3/uL Absolute Basophils (0.0-0.2) 10^3/uL PT (9.1-11.1) sec INR (0.9-1.1) Sodium Potassium Chloride Carbon Dioxide Anion Gap BUN Creatinine Est GFR (CKD-EPI 2020) Glucose Calcium Magnesium (1.8-2.4) mg/dL Total Bilirubin AST 24 ALT Cancelled 30 Alkaline Phosphatase Cancelled 100 Troponin I (<or=60) ng/L 87 H* NT-Pro-B Natriuret Pep (<300) pg/mL 6681 H Total Protein Cancelled Albumin Urine Color (Yellow) Urine Clarity (Clear) Urine pH (5-8) Ur Specific [place] (1.005-1.025) Urine Protein (Negative) mg/dL Urine Ketones (Negative) mg/dL Urine Blood (Negative) Urine Nitrite (Negative) Urine Bilirubin (Negative) Urine Urobilinogen (Up to 0.2) mg/dL Ur Leukocyte Esterase (Negative) Urine RBC (0-2) HPF Urine WBC (0-5) HPF Ur Epithelial Cells (Negative) HPF Urine Crystals (Negative) HPF Urine Bacteria (Negative) HPF Urine Mucus (Negative) Urine Other (Negative) Ur Culture Indicated? Urine Glucose (Negative) mg/dL COVID-19 Source SARS-CoV-2 (PCR) (Negative) Range/Units 08/28/23 08/28/23 08/28/23 13:13 13:13 15:32 WBC (4.4-10.8) 10^3/uL RBC (4.36-5.78) 10^6/uL Hgb (13.5-17.5) g/dL Hct (40.0-50.0) % MCV (80-95) fL MCH (27.0-33.0) pg MCHC (32.0-36.0) % RDW (11.8-14.1) % Plt Count (130-400) 10^3/uL MPV (8.0-11.0) fL Immature Gran % Neutrophils % Lymphocytes % Monocytes % Eosinophils % Basophils % Nucleated RBC % (0.0-0.3) % Absolute Neutrophils (1.2-6.7) 10^3/uL Absolute Lymphocytes (1.2-3.4) 10^3/uL Absolute Monocytes (0.1-0.8) 10^3/uL Absolute Eosinophils (0.0-0.7) 10^3/uL Absolute Basophils (0.0-0.2) 10^3/uL PT (9.1-11.1) sec INR (0.9-1.1) Sodium Potassium Chloride Carbon Dioxide Anion Gap BUN Creatinine Est GFR (CKD-EPI 2020) Glucose Calcium Magnesium (1.8-2.4) mg/dL Total Bilirubin AST ALT Alkaline Phosphatase Troponin I (<or=60) ng/L NT-Pro-B Natriuret Pep (<300) pg/mL Total Protein 7.5 Albumin Cancelled 3.7 Urine Color (Yellow) Yellow Urine Clarity (Clear) Clear Urine pH (5-8) 5.5 Ur Specific [place] (1.005-1.025) >= 1.030 H Urine Protein (Negative) mg/dL >=300 H Urine Ketones (Negative) mg/dL Trace H Urine Blood (Negative) Negative Urine Nitrite (Negative) Negative Urine Bilirubin (Negative) Moderate H Urine Urobilinogen (Up to 0.2) mg/dL 0.2 Ur Leukocyte Esterase (Negative) Negative Urine RBC (0-2) HPF 0-2 Urine WBC (0-5) HPF 0-2 Ur Epithelial Cells (Negative) HPF Rare Urine Crystals (Negative) HPF Negative Urine Bacteria (Negative) HPF Negative Urine Mucus (Negative) Trace Urine Other (Negative) Many [place] Ur Culture Indicated? No Urine Glucose (Negative) mg/dL Negative COVID-19 Source SARS-CoV-2 (PCR) (Negative) Range/Units 08/28/23 08/28/23 16:10 16:24 WBC (4.4-10.8) 10^3/uL RBC (4.36-5.78) 10^6/uL Hgb (13.5-17.5) g/dL Hct (40.0-50.0) % MCV (80-95) fL MCH (27.0-33.0) pg MCHC (32.0-36.0) % RDW (11.8-14.1) % Plt Count (130-400) 10^3/uL MPV (8.0-11.0) fL Immature Gran % Neutrophils % Lymphocytes % Monocytes % Eosinophils % Basophils % Nucleated RBC % (0.0-0.3) % Absolute Neutrophils (1.2-6.7) 10^3/uL Absolute Lymphocytes (1.2-3.4) 10^3/uL Absolute Monocytes (0.1-0.8) 10^3/uL Absolute Eosinophils (0.0-0.7) 10^3/uL Absolute Basophils (0.0-0.2) 10^3/uL PT (9.1-11.1) sec INR (0.9-1.1) Sodium Potassium Chloride Carbon Dioxide Anion Gap BUN Creatinine Est GFR (CKD-EPI 2020) Glucose Calcium Magnesium (1.8-2.4) mg/dL 1.6 L Total Bilirubin AST ALT Alkaline Phosphatase Troponin I (<or=60) ng/L 170 H* NT-Pro-B Natriuret Pep (<300) pg/mL Total Protein Albumin Urine Color (Yellow) Urine Clarity (Clear) Urine pH (5-8) Ur Specific [place] (1.005-1.025) Urine Protein (Negative) mg/dL Urine Ketones (Negative) mg/dL Urine Blood (Negative) Urine Nitrite (Negative) Urine Bilirubin (Negative) Urine Urobilinogen (Up to 0.2) mg/dL Ur Leukocyte Esterase (Negative) Urine RBC (0-2) HPF Urine WBC (0-5) HPF Ur Epithelial Cells (Negative) HPF Urine Crystals (Negative) HPF Urine Bacteria (Negative) HPF Urine Mucus (Negative) Urine Other (Negative) Ur Culture Indicated? Urine Glucose (Negative) mg/dL COVID-19 Source Nasal/Nares SARS-CoV-2 (PCR) (Negative) Negative Sign Out Sign Out Data: Sign Out Comment: pending repeat troponin and cardiology consultation, chf/pulm edema, admission for diuresis and echo Last updated by Aylin Seo PA at 08/28/23 15:57 Discharge Plan Disposition Patient Disposition: Transfer-Acute Inpatient Care Specific Acute Inpt Facility: [facility] Discharge Details Clinical Impression: CHF (congestive heart failure), Elevated troponin level Primary Care Provider: KIM NUNEZ ED Provider: Fran Worrell Home Meds and New Rx's Prescriptions: No Action gabapentin 100 mg capsule 100 mg PO BID losartan 50 mg tablet 50 mg PO DAILY omeprazole 20 mg capsule,delayed release(DR/EC) 20 mg PO DAILY multivitamin Tablet 1 tab PO DAILY warfarin 3 mg tablet See Rx Instructions PO DAILY Patient Comments: takes 2.5 mg 4 times a week and 5 mg 3 times a week Rx Instructions: takes 2.5mg 4 times a week then 5 mg 3 times a wk. PO daily; acetaminophen [Tylenol] 325 MG tablet 325 - 650 mg PO PRN tamsulosin 0.4 MG capsule 0.4 mg PO DAILY gemfibrozil 600 MG tablet 600 mg PO BID simvastatin 20 MG tablet 20 mg PO DAILY lorazepam 1 MG tablet 1 mg PO PRN PRN metoprolol tartrate 50 mg tablet 50 mg PO BID amlodipine 5 mg tablet Patient Comments: TAKE 1 TABLET BY MOUTH DAILY
[2023-08-28 16:02] LABS: Bacteria Negative HPF (Negative); C & S Indicated? No; Crystals Negative HPF (Negative); Mucus Trace (Negative)
[2023-08-28] MEDS: Furosemide 40 MG/4 ML VIAL IVP (16:04)
[2023-08-28 16:18] LABS: Source Nasal/Nares
--- NOTE | 2023-08-28 16:30 | RT.EKG_ITS ---
APPROVED REPORT Exam: Resting ECG Reason for Exam: Rhythm change seen on telemetry Patient Location: E HR:99 bpm ECG Measurements Heart Rate 99 AXIS OR [id number] P [id number] QRSd 153 QRS -75 QT 410 T 56 QTc 526 Conclusion Atrial fibrillation...V-rate 82-123, irreg A-activity Right bundle branch block...QRSd>120, terminal axis(90,270) Inferior infarct, old...Q >35mS, II III aVF I have reviewed and interpreted ECG and agree with software generated interpretation.
[2023-08-28] MEDS: MAGNESIUM SULFATE 1 GM/100 ML BAG IVPB (16:35)
[2023-08-28 16:37] LABS: Magnesium 1.6 mg/dL (1.8-2.4)
[2023-08-28 16:42] LABS: Troponin I 170 ng/L (<or=60)
[2023-08-28 16:48] LABS: COVID-19 PCR Negative (Negative)
[2023-08-28 19:44] LABS: Troponin I 178 ng/L (<or=60)
== END 2023-08-28 22:38 | disposition short-term general hospital (02) ==
PROVIDERS: Physician Assistant; Emergency Provider Physician Assistant; PCP Nurse Practitioner Family
DX: R06.02 Shortness of breath (principal); I50.9 Heart failure, unspecified; R79.89 Other specified abnormal findings of blood chemistry; R07.9 Chest pain, unspecified; Z79.899 Other long term (current) drug therapy; Z79.01 Long term (current) use of anticoagulants; I45.10 Unspecified right bundle-branch block; I48.91 Unspecified atrial fibrillation; I10 Essential (primary) hypertension; I25.10 Atherosclerotic heart disease of native coronary artery without angina pectoris; I71.40 Abdominal aortic aneurysm, without rupture, unspecified; R00.0 Tachycardia, unspecified; J90 Pleural effusion, not elsewhere classified
CPT/HCPCS: 00123; 36415; 71275; 80053; 87635; 93005; 96365; 96367; 99285; 74174; 81003; 81015; 83735; 83880; 84484; 85025; 85610; 93010; J1940; J2765; J3475; J3490

== ENCOUNTER 2023-09-20 09:52 | Inpatient (IN) | payer MEDICARE, SELFPAY ==
[2023-09-20] VITALS (74 sets, daily range): BP systolic 118–201; BP diastolic 61–137; PULSE 50–109; RESP 11–28; TEMP 36.9–37.2; O2SAT 90–97
--- NOTE | 2023-09-20 09:45 | RT.EKG_ITS ---
APPROVED REPORT Exam: Resting ECG Reason for Exam: Chest Pain Patient Location: E HR:106 bpm ECG Measurements Heart Rate 106 AXIS OH 68 P 0 QRSd 179 QRS -65 QT 399 T 121 QTc 532 Conclusion Ventricular-paced rhythm No significant chest pain so doubt aortic dissection. No fevers to suggest pneumonia.
--- NOTE | 2023-09-20 09:47 | W.ED.GENAD ---
HPI General Stated Complaint: SOB LANA: 3 Date/Time Provider Initiated Documentation: 09/20/23 10:08. HPI Narrative: MDM This is an overall well-appearing hypertensive and mildly tachycardic 77-year-old male with dry cough shortness of breath pitting edema bilateral B-lines concerning for acute on chronic systolic heart failure for which patient will receive 40 mg of IV furosemide.No pain or proportion to suggest necrotizing soft tissue infection. COVID is certainly also a possibility so we will swab for COVID influenza and RSV.No significant chest pain so doubt aortic dissection. No fevers to suggest pneumonia. No syncope to suggest benefit from pacemaker interrogation. I considered PE however in the absence of chest pain I felt that this was less likely. Nonetheless we will order a D-dimer as patient is low risk. No falls and equal breath sounds so doubt pneumothorax. Patient reports no change in his weight which is 166 pounds. Per chart review at [facility] patient's last weight was 175 pounds. Will obtain INR testing. 10:45 AM Venous blood gas lacks acidemia and hypercarbia. Chest x-ray read virtually as increased prominence of lung interstitium and pulmonary vascular congestion with consolidation in the right midlung. CBC shows leukocytosis and new macrocytic anemia. Slightly worsened thrombocytosis. Will treat with amoxicillin clavulanic acid and doxycycline for right sided pneumonia. 10:54 AM Subtherapeutic INR. Significant elevated troponin at greater than 11,000 ng/L for which I will page cardiology at [facility] initiate aspirin and heparin in the setting of NSTEMI. Normal TSH comprehensive metabolic panel showing no FARRUKH. Very mild hypokalemia with a serum potassium of 3.3. Mildly elevated anion gap similar to prior. Mildly hypomagnesemic for which patient will receive IV repletion. Elevated proBNP slightly less compared to prior. 11:08 AM Elevated D-dimer for which patient will undergo CT angiogram for PE. 11:17 AM I spoke with Dr. Mejia from [facility] cardiology. He advised against TNK in favor of treating for NSTEMI with heparinization, clopidogrel load, and aspirin. He agreed with diuresis. He accepted the patient on behalf of Dr. Glasgow. Fortunately [facility] is listing for tomorrow. Will update patient and reach out to the hospitalist team for hospitalization. COVID influenza RSV all negative. I met with the patient.He continues to deny chest pain. I advised him the plan for local hospitalization. Will provide him with a heart healthy diet. 11:37 AM I spoke with Dr. Davis who agreed to accept patient to ICU level of care. Chronic conditions affecting the care of the patient: Atrial fibrillation on warfarin coronary artery disease CHF History obtained from an outside historian: Paramedics External record review: [facility] [Diagnostic interpretations performed by me: Per my independent interpretation chest x-ray shows: Per my independent interpretation EKG shows: Ventricularly paced rhythm at a rate of 106. Left axis deviation. QTc prolonged at 532 ms. Not meeting Sgarbossa criteria nor modified Roman criteria for ischemia. Compared to prior dated last year ventricularly paced rhythm has replaced atrial fibrillation. ]Medications: No significant chest pain so doubt aortic dissection. No fevers to suggest pneumonia. Social determinants of health affecting disposition: N/A Management discussed with: Cardiology [facility] Treatment/interventions considered: [] Response to therapies provided: [] HPI [ ] Exam General: Well-appearing in no acute distress speaking in complete sentences. Head: Normocephalic, atraumatic. Eye:[Pupils equal, round reactive to light.] Extraocular eye movements intact. No conjunctival injection. No scleral icterus. Ear, nose, mouth, throat: Grossly normal inspection. Normal voice, handling secretions normally. Neck: Trachea midline. Cardiovascular: Well-perfused distal extremities. Respiratory: Nonlabored respiration. Gastrointestinal: Nondistended abdomen. Musculoskeletal: No edema. Moving all 4 extremities spontaneously. Skin: Normal for age and race, grossly normal temperature and turgor. No acute rash. Neurologic: Alert and appropriate, no apparent acute deficits. Psychiatric: Mood and manner are appropriate. Grooming and personal hygiene are appropriate. Related Data Home Medications Medication Instructions Recorded Confirmed lorazepam 1 mg tablet 1 mg PO PRN PRN 02/08/13 09/20/23 acetaminophen 325 mg tablet 325 - 650 mg PO PRN 06/26/15 09/20/23 (Tylenol) tamsulosin 0.4 mg capsule 0.4 mg PO DAILY 06/26/15 09/20/23 gemfibrozil 600 mg tablet 600 mg PO BID 10/13/17 09/20/23 simvastatin 20 mg tablet 20 mg PO DAILY 10/13/17 09/20/23 multivitamin 1 tab PO DAILY 01/10/20 09/20/23 omeprazole 20 mg capsule,delayed 20 mg PO DAILY 01/10/20 09/20/23 release warfarin 3 mg tablet See Rx Instructions PO DAILY 03/08/21 09/20/23 gabapentin 100 mg capsule 100 mg PO BID 05/24/21 09/20/23 losartan 50 mg tablet 50 mg PO DAILY 11/26/22 09/20/23 aspirin 81 mg tablet,delayed 81 mg PO DAILY 09/20/23 09/20/23 release ferrous gluconate 324 mg (38 mg 324 mg PO DAILY 09/20/23 09/20/23 iron) tablet furosemide 20 mg tablet 20 mg PO DAILY 09/20/23 09/20/23 Allergies Allergy/AdvReac Type Severity Reaction Status Date / Time chlorpheniramine Allergy Intermediate rash Verified 09/20/23 09:46 [From Tussionex] hydrocodone [From Tussionex] Allergy Mild rash Verified 09/20/23 09:46 oxycodone Allergy Verified 09/20/23 09:46 escitalopram oxalate AdvReac Severe suidial Verified 09/20/23 09:46 [From Lexapro] ideations tramadol AdvReac Mild Verified 09/20/23 09:46 PFSH All Active Problems (Updated 09/20/23 @ 11:38 by Azael Muhammad MD) Acute non-ST elevation myocardial infarction (NSTEMI) (Acute) Acute on chronic HFrEF (heart failure with reduced ejection fraction) (Acute) Elevated troponin level (Acute) CHF (congestive heart failure) (Chronic) Melanoma (Acute) Skin lesion of cheek (Acute) Internal derangement of left knee (Acute) Left ventricular aneurysm (Acute) Hallux valgus (acquired), left foot (Acute) Hallux valgus (acquired), right foot (Acute) Hip pain, right (Acute) RLQ abdominal pain (Acute) Abnormal CT of the abdomen (Acute) Hiatal hernia with GERD (Acute) Diverticula of colon (Acute) pandiverticula - severe diverticula that carry all the way over to the cecum Recurrent right inguinal hernia (Acute) Adenomatous colon polyp (Acute) GERD (gastroesophageal reflux disease) (Chronic) Hx of hyperlipidemia (Acute) BPH loc w urin obs/LUTS (Acute) Arthritis of right hip (Acute 10/13/17) Atherosclerotic cardiovascular disease (Acute) Peripheral vascular disease (Chronic) 2013: [facility]: Left iliofemoral endarterectomy with patch angioplasty, Left femoral->peroneal bypass. 11/24/13 [facility]: Left external iliac artery stentgraft placed, ligation left leg bypass graft fistula. HTN (hypertension) (Chronic) Atrial fibrillation (Chronic) Medical History AAA (abdominal aortic aneurysm) 02/2021: 3.9cm AAA Abdominal pain Adrenal nodule Anxiety Atypical nevus CAD (coronary artery disease) 03/2020 CABG X6, LV aneurysm repair, RANDELL removal Elevated hemoglobin A1c Enlarged prostate Osteoarthritis Pelvic pain Surgical History History of colonoscopy with polypectomy (~06/05/21) History of esophagogastroduodenoscopy (EGD) (~06/05/21) History of open heart surgery Pt states placed 4 or 5 stents post heart attack - 2019 History of right inguinal hernia repair (~06/26/21) History of surgery on extremity bilat lower extremity bypass/vascular History of tonsillectomy and adenoidectomy Hx of colonoscopy Hx of hernia repair x5 Social History Smoking/Tobacco Use Status: Former Tobacco Use Quit Date: 09/08/95 Smoking risk assessment performed?: Yes Alcohol Intake: current Alcohol Intake frequency: holidays/special occasions only Alcohol type: wine Drug use: Never Substance use type: does not use Housing: house Current gender identity: male What type of physical activity do you participate in: additional Details: 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[email or web address]), PT Do you feel safe at home: Yes Do you feel safe in your relationship?: Yes Course Vital Signs Vital signs: Vital Signs Temperature 37.0 C 09/20/23 09:42 Pulse 108 H 09/20/23 09:42 Respiratory Rate 22 09/20/23 09:42 Blood Pressure 201/95 H 09/20/23 09:42 Pulse Oximetry 91 L 09/20/23 09:42 Temperature 37.0 C 09/20/23 09:42 Pulse 108 H 09/20/23 09:42 Respiratory Rate 22 09/20/23 09:42 Blood Pressure 201/95 H 09/20/23 09:42 Pulse Oximetry 91 L 09/20/23 09:42 Medical Decision Making Quality:SDOH Health Related Social Needs: No Data to Display Discharge Plan Disposition Patient Disposition: Admit to [facility] Discharge Details Chief Complaint: SOB Clinical Impression: Acute on chronic HFrEF (heart failure with reduced ejection fraction), Acute non-ST elevation myocardial infarction (NSTEMI) Primary Care Provider: KIM NUNEZ ED Provider: Azael Muhammad [place] Meds and New Rx's Prescriptions: No Action gabapentin 100 mg capsule 100 mg PO BID losartan 50 mg tablet 50 mg PO DAILY omeprazole 20 mg capsule,delayed release(DR/EC) 20 mg PO DAILY multivitamin Tablet 1 tab PO DAILY warfarin 3 mg tablet See Rx Instructions PO DAILY Patient Comments: takes 2.5 mg daily Rx Instructions: takes 2.5mg 4 times a week then 5 mg 3 times a wk. PO daily; acetaminophen [Tylenol] 325 MG tablet 325 - 650 mg PO PRN tamsulosin 0.4 MG capsule 0.4 mg PO DAILY gemfibrozil 600 MG tablet 600 mg PO BID simvastatin 20 MG tablet 20 mg PO DAILY lorazepam 1 MG tablet 1 mg PO PRN PRN aspirin 81 mg tablet,delayed release (DR/EC) 81 mg PO DAILY ferrous gluconate 324 mg (38 mg iron) tablet 324 mg PO DAILY Patient Comments: have not been able to start yet furosemide 20 mg tablet 20 mg PO DAILY POCUS Exam (ED) Limited Cardiac Exam DATE OF EXAM: 09/20/23 TIME OF EXAM: 10:17 PROVIDER THAT PERFORMED THE STUDY: Azael Muhammad REASON FOR EXAM: Dyspnea VISUALIZED STRUCTURES: Four Chambers, Left ventricle and Interventricular septum VIEW OBTAINED: Apical 4-Chamber, Parasternal long-axis, Subxiphoid and Other (Lungs) PERTINENT FINDINGS/IMPRESSION: LV dysfunction and Other Bilateral B-lines. Aortic outflow track less than 4 cm, moderate squeeze, RV approximately equal LV. No significant pericardial effusion INCIDENTAL FINDINGS: Aortic outflow track less than 4 cm, moderate squeeze, no significant pericardial effusion, RV approximately equal to LV. Exam complete
--- NOTE | 2023-09-20 10:00 | DI.RAD_ITS ---
Exam(s) XR PORTABLE CHEST AP EXAM: XR PORTABLE CHEST AP CLINICAL HISTORY: Shortness of breath. TECHNIQUE: 2D digital imaging was performed. COMPARISON: CT CT CHEST PE CTA from 09/20/2023 FINDINGS: Single AP portable view. There are sternotomy wires and evidence of previous CABG. Mild cardiomegaly. There is an increased interstitial pattern in the lung ingram, more so on the right side where there appears to be some infiltrate laterally in the right lung. This is superimposed upon an increased in terstitial pattern bilaterally. There are no obvious pleural effusions, realizing that this is a por table view. IMPRESSION: Lateral right lung infiltrate which appears to be in the right upper lobe. This is superimposed upon an increased interstitial pattern in this patient who has had prior sternotomy/CABG. There may also be an element of pulmonary edema here. Consider both CHF and concomitant infectious pathology DATA REPOSITORY: RADIATION DOSE DELIVERED:
[2023-09-20 10:18] LABS: BE (Venous) -5 mmol/L (-2-3); HCO3 (Venous) 20 mmol/L (23-28); O2 Sat (Venous) 64 %; TCO2 (Venous) 18 mmol/L (24-29); pCO2 (Venous) 33 mmHg (41-51); pH (Venous) 7.39 (7.31-7.41); pO2 (Venous) 34 mmHg
[2023-09-20 10:20] LABS: Abs Immature Grans 0.05 10^3/uL (0.0-0.06); Absolute Basophil Count 0.07 10^3/uL (0.0-0.2); Absolute Eosinophil Count 0.06 10^3/uL (0.0-0.7); Absolute Monocyte Count 0.79 10^3/uL (0.1-0.8); Absolute Neutrophil Count 9.37 10^3/uL (1.2-6.7); Basophils % 0.6; Eosinophils % 0.5; HCT 40.7 % (40.0-50.0); HGB 13.1 g/dL (13.5-17.5); Immature Grans % 0.4; Lymphocytes % 13.3; MCH 30.8 pg (27.0-33.0); MCHC 32.2 % (32.0-36.0); MCV 96 fL (80-95); MPV 8.4 fL (8.0-11.0); Monocytes % 6.6; Neutrophils % 78.6; Platelet Count 467 10^3/uL (130-400); RBC 4.26 10^6/uL (4.36-5.78); RDW 13.7 % (11.8-14.1); RDW-SD 48.4 fL; WBC 11.92 10^3/uL (4.4-10.8)
[2023-09-20] MEDS: Furosemide 40 MG/4 ML VIAL IVP ×2 (10:23→16:22)
[2023-09-20 10:35] LABS: INR 1.5 (0.9-1.1); Prothrombin Time 14.5 sec (9.1-11.1)
[2023-09-20 10:38] LABS: Absolute Lymphocyte Count 1.59 10^3/uL (1.2-3.4)
--- NOTE | 2023-09-20 10:44 | DI.VRAD_ITS ---
PROCEDURE INFORMATION: Exam: XR Chest Exam date and time: 09/20/2023 10:21 AM Age: 77 years old Clinical indication: Shortness of breath TECHNIQUE: Imaging protocol: Radiologic exam of the chest. Views: 1 view. COMPARISON: CT THORAX ABD/PEL CTA 08/28/2023 2:49 PM FINDINGS: Lungs: Prominence of the lung interstitium and pulmonary vascular with patchy airspace consolidation in the right mid lung. Pleural spaces: Unremarkable. No pleural effusion. No pneumothorax. Heart/Mediastinum: Postsurgical changes in the mediastinum. Mild cardiomegaly is present. Bones/joints: No acute bony abnormalities. IMPRESSION: Increasing prominence of the lung interstitium and pulmonary vasculature with consolidation in the right mid lung. This may represent pulmonary edema/congestive heart failure however a superimposed pneumonia could have a very similar appearance. Close clinical correlation is required. Dictated and Authenticated by: Guillermo Alejandre MD. Ordering:KARTIK Addison MD
[2023-09-20 10:50] LABS: ALT 29 U/L (16-63); AST 87 U/L (15-37); Albumin 3.3 g/dL (3.4-5.0); Alkaline Phosphatase 115 U/L (46-116); Anion Gap 15.2 mmol/L (3-11); BUN 9 mg/dL (7-18); Bilirubin, Total 1.1 mg/dL (0.2-1.0); CO2 20.8 mmol/L (21.0-32.0); Calcium 9.6 mg/dL (8.5-10.1); Chloride 106 mmol/L (98-107); Glucose 124 mg/dL (74-106); Magnesium 1.6 mg/dL (1.8-2.4); NT-proBNP 3453 pg/mL (<300); Potassium 3.3 mmol/L (3.5-5.1); Sodium 142 mmol/L (136-145); TSH (W/Ref FT4) 2.29 uIU/mL (0.36-3.74); Total Protein 7.1 g/dL (6.4-8.2)
[2023-09-20] MEDS: Doxycycline Hyclate 100 MG CAP PO (10:52)
[2023-09-20] MEDS: Amoxicillin 875/Clav. 125 TAB PO (10:52)
[2023-09-20 10:53] LABS: Troponin I 11366 ng/L (< or =60)
[2023-09-20 10:57] LABS: D-Dimer 2746 ng/mlFEU (<500)
--- NOTE | 2023-09-20 11:00 | DI.CT_ITS ---
Exam(s) CT CHEST PE CTA EXAM: CT CHEST PE CTA CLINICAL HISTORY: postive dimer. TECHNIQUE: Imaging Protocol: CT angiography of the chest was performed using pulmonary embolus elodia col. Multi planar reconstructions were performed. CONTRAST MATERIAL: Intravenous: Omnipaque 350 Contrast volume: 100 cc COMPARISON: CT CT THORAX ABD/PEL CTA from 08/28/2023 FINDINGS: CHEST: PULMONARY ARTERIES: There is satisfactory opacification of pulmonary arterial tree out to the segment al level. There are no obvious intraluminal filling defects out to the segmental level. Most distal arteries is in the pulmonary arterial tree are difficult to evaluate accurately. LUNGS: Again noted are moderate size bilateral pleural effusions.. On the present study there is inc reased infiltrate in the right upper lobe. Relative sparing of the right middle lobe. Some infiltra te also noted in the right lower lobe superior segment. Subpleural reticulation noted bilaterally. MEDIASTINUM: There is no hilar nor mediastinal adenopathy. Visualized thyroid unremarkable. CARDIAC: Sternotomy wires. Previous CABG. Mild cardiomegaly.Caliber of the thoracic aorta is within normal limits. No dissection. Coronary artery calcification and stents noted. There are D radiopaq ue densities in the right ventricle and mitral valve region. PARTIALLY VISUALIZED UPPERMOST ABDOMEN: No adrenal masses. Hepatic steatosis. 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 OSSEOUS: No significant osseous lesions.. IMPRESSION: 1. No evidence of acute pulmonary emboli within the main and segmental pulmonary arteries. Most dist al pulmonary arteries are difficult to evaluate on this study.. No evidence of pulmonary infarction. Moderate size bilateral pleural effusions are again noted. 2. Right upper lobe infiltrate, increased from previous. Increased infiltrate also involves superior segment right lower lobe. 3. Cardiomegaly. Sternotomy. CABG. Coronary artery calcification noted. 4. Partially included superior mesenteric artery exhibits advanced atherosclerotic disease. RADIATION DOSE DELIVERED: 341.14mGy.cm Total DLP DATA REPOSITORY: All CT scans at this facility are submitted to the National Radiology Data Registry (NRDR) Dose Index Registry (DIR) with the [employer] (A[employer]). RADIATION OPTIMIZATION: All CT scans at this facility use at least one of these dose optimization te chniques: automated exposure control; mA and/or kV adjustment per patient size (includes targeted exa ms where dose is matched to clinical indication); or iterative reconstruction.
[2023-09-20 11:04] LABS: COVID-19 PCR Negative (Negative); Influenza A PCR Negative (Negative); Influenza B PCR Negative (Negative); RSV PCR Negative (Negative)
[2023-09-20 11:07] LABS: Source Nasopharynx
[2023-09-20] MEDS: Aspirin 81 MG CHEW 324 MG CH (11:15)
[2023-09-20 11:16] LABS: PTT Activated 30.2 sec (23.6-32.8)
[2023-09-20] MEDS: Heparin in 0.45% NaCl 25,000 UNIT/250 ML BAG 9.5 UNIT IV (11:23)
[2023-09-20] MEDS: Clopidogrel 300 MG TAB 600 MG PO (11:35)
[2023-09-20] MEDS: Normal Saline - Diluent 50 ML VIAL IJ (11:59)
[2023-09-20] MEDS: Omnipaque 350 MG/ML 100 ML BTL IJ (12:00)
[2023-09-20] MEDS: Magnesium Oxide 400 MG TAB PO (12:28)
[2023-09-20 13:21] LABS: Troponin I 8992 ng/L (< or =60)
--- NOTE | 2023-09-20 13:30 | DI.VRAD_ITS ---
PROCEDURE INFORMATION: Exam: CTA Chest With Contrast Exam date and time: 09/20/2023 12:03 PM Age: 77 years old Clinical indication: Other: Positive dimer TECHNIQUE: Imaging protocol: Computed tomographic angiography of the chest with contrast. Exam focused on the arteries. 3D rendering (Not supervised by radiologist): MIP and/or 3D reconstructed images were created by the technologist. Radiation optimization: All CT scans at this facility use at least one of these dose optimization techniques: automated exposure control; mA and/or kV adjustment per patient size (includes targeted exams where dose is matched to clinical indication); or iterative reconstruction. Contrast material: OMNI 350; Contrast volume: 100 ml; Contrast route: INTRAVENOUS (IV); COMPARISON: CT THORAX ABD/PEL CTA 08/28/2023 2:49 PM FINDINGS: Pulmonary arteries: Top-normal size main pulmonary artery, can be seen in pulmonary hypertension. Pulmonary arteries are adequately opacified to the segmental level. No pulmonary emboli within the main or segmental pulmonary arteries. Aorta: Normal caliber thoracic aorta with calcified atherosclerosis. Lungs: Interlobular septal thickening. Subpleural reticulation, may indicate mild fibrosis. Multifocal patchy groundglass opacities. Pleural spaces: Small to moderate sized bilateral pleural effusions. Heart: Mild cardiomegaly. Prominent right and left atrium. Coronary artery calcification and stents. Metallic structures which likely represent medical devices are present in the right ventricle and in the region of the mitral valve. Mediastinal space: Thick-walled distal esophagus. Lymph nodes: Unremarkable. No enlarged lymph nodes. Bones/joints: Post median sternotomy. Degenerative change of the spine. Soft tissues: Unremarkable. IMPRESSION: 1. No pulmonary emboli within the main or segmental pulmonary arteries. 2. Mild cardiomegaly and biatrial prominence, bilateral pleural effusions, smooth interlobular septal thickening suggest pulmonary vascular congestion. 3. Patchy ground-glass opacitie, may represent congestive change. Broad differential includes viral pneumonia, organizing pneumonia related to drug toxicity and connective tissue disease and other processes. 4. Thick-walled distal esophagus. Correlate for reflux. Dictated and Authenticated by: Chinyere Mckinney MD. Ordering:KARTIK Addison MD
--- NOTE | 2023-09-20 14:02 | W.PM.HP.N ---
Date of service: 09/20/23 Time of Service: 14:02 Assessment and Plan Assessment and plan (1) Acute non-ST elevation myocardial infarction (NSTEMI): Status: Acute Assessment and plan: Continue aspirin and Plavix along with heparin drip. Continue Mevacor. Patient was given one-time dose of Lopressor 2.5 mg to control his tachycardia. Patient will be transferred to [facility] tomorrow when bed availability occurs. Critical care time spent interviewing and examining the patient, reviewing studies, discussing case with patient's nurse and consulting physicians was 60 minutes (2) Acute on chronic HFrEF (heart failure with reduced ejection fraction): Status: Acute Assessment and plan: Continue IV Lasix (3) Atherosclerotic cardiovascular disease: Status: Acute (4) HTN (hypertension): Status: Chronic Qualifiers: Hypertension type: primary hypertension Qualified Code(s): I10 - Essential (primary) hypertension (5) Atrial fibrillation: Status: Chronic Assessment and plan: As needed use of Lopressor to control rapid rates. Patient has a pacemaker which should prevent him from having excessive bradycardia. Qualifiers: Atrial fibrillation type: paroxysmal Qualified Code(s): I48.0 - Paroxysmal atrial fibrillation (6) CAD (coronary artery disease): Assessment and plan: As above Qualifiers: Coronary Disease-Associated Artery/Lesion type: [place] artery [place] vs. transplanted heart: [place] heart Associated angina: with unstable angina Qualified Code(s): I25.110 - Atherosclerotic heart disease of [place] coronary artery with unstable angina pectoris History of Present Illness History of Present Illness Chief Complaint: Dyspnea Narrative: 77-year-old male with a history of coronary artery disease status post coronary artery bypass grafting with THOMAS to LAD, hyperlipidemia, atrial fibrillation/sick sinus syndrome, status post recent pacemaker placed February 08, 2024 at [facility], recent mitral valve clip repair of a ruptured chordaeAlso history of abdominal aortic aneurysm and bifemoral artery bypass, who presents to the emergency department with acute onset orthopnea and PND last night although he has had progressive bilateral lower extremity edema for the past month. He has a history of congestive heart failure. On arrival to emergency department he was noted to be in acute heart failure with bilateral B-lines on lung ultrasound exam as well as increased interstitial changes on chest x-ray and questionable consolidation in the right midlung. CT of the chest was performed showed no pulmonary emboli in the main or segmental pulmonary arteries she has cardiomegaly and biatrial enlargement and bilateral pleural effusions along with pulmonary vascular congestion and patchy groundglass opacities bilaterally. Troponins were noted to be elevated at 11,366 and his proBNP was elevated at 3400. EKG demonstrated ventricular paced rhythm at a rate of [address] Muhammad, ED provider, called [facility] cardiology and they agreed to transfer the patient however they have no beds and requested that we board him here and treat him for NSTEMI. Patient was given aspirin 3 and 24 mg orally along with Plavix 600 mg patient was started on a heparin drip. Patient was given a one-time dose of furosemide 40 mg IV push. Patient is now admitted to the intensive care unit for treatment of NSTEMI and acute on chronic heart failure with reduced ejection fraction. Patient was excepted to the service of Dr. Glasgow. Review of Systems All systems reviewed & are unremarkable except as noted in HPI and below PFSH All Active Problems (Updated 09/20/23 @ 22:56 by Joey Islas MD) Acute non-ST elevation myocardial infarction (NSTEMI) (Acute) Acute on chronic HFrEF (heart failure with reduced ejection fraction) (Acute) Elevated troponin level (Acute) CHF (congestive heart failure) (Chronic) Melanoma (Acute) Skin lesion of cheek (Acute) Internal derangement of left knee (Acute) Left ventricular aneurysm (Acute) Hallux valgus (acquired), left foot (Acute) Hallux valgus (acquired), right foot (Acute) Hip pain, right (Acute) RLQ abdominal pain (Acute) Abnormal CT of the abdomen (Acute) Hiatal hernia with GERD (Acute) Diverticula of colon (Acute) pandiverticula - severe diverticula that carry all the way over to the cecum Recurrent right inguinal hernia (Acute) Adenomatous colon polyp (Acute) GERD (gastroesophageal reflux disease) (Chronic) Hx of hyperlipidemia (Acute) BPH loc w urin obs/LUTS (Acute) Arthritis of right hip (Acute 10/13/17) Atherosclerotic cardiovascular disease (Acute) Peripheral vascular disease (Chronic) 2013: [facility]: Left iliofemoral endarterectomy with patch angioplasty, Left femoral->peroneal bypass. 11/24/13 [facility]: Left external iliac artery stentgraft placed, ligation left leg bypass graft fistula. HTN (hypertension) (Chronic) Atrial fibrillation (Chronic) Medical History Atypical nevus Anxiety CAD (coronary artery disease) 03/2020 CABG X6, LV aneurysm repair, RANDELL removal Elevated hemoglobin A1c Abdominal pain Pelvic pain Enlarged prostate Adrenal nodule AAA (abdominal aortic aneurysm) 02/2021: 3.9cm AAA Osteoarthritis Surgical History History of right inguinal hernia repair (~06/26/21) History of esophagogastroduodenoscopy (EGD) (~06/05/21) History of colonoscopy with polypectomy (~06/05/21) History of open heart surgery Pt states placed 4 or 5 stents post heart attack - 2019 Hx of hernia repair x5 Hx of colonoscopy History of tonsillectomy and adenoidectomy History of surgery on extremity bilat lower extremity bypass/vascular Social History Smoking/Tobacco Use Status: Former Tobacco Use Quit Date: 09/08/95 Smoking risk assessment performed?: Yes Alcohol Intake: current Alcohol Intake frequency: holidays/special occasions only Alcohol type: wine Drug use: Never Substance use type: does not use Housing: house Current gender identity: male What type of physical activity do you participate in: additional Details: 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[employer]), PT Do you feel safe at home: Yes Do you feel safe in your relationship?: Yes Meds Allergies and Home Medications Allergies Allergy/AdvReac Type Severity Reaction Status Date / Time chlorpheniramine Allergy Intermediate rash Verified 09/20/23 09:46 [From Tussionex] hydrocodone [From Tussionex] Allergy Mild rash Verified 09/20/23 09:46 oxycodone Allergy Verified 09/20/23 09:46 escitalopram oxalate AdvReac Severe suidial Verified 09/20/23 09:46 [From Lexapro] ideations tramadol AdvReac Mild Verified 09/20/23 09:46 Home Medications Medication Instructions Recorded Confirmed Type lorazepam 1 mg tablet 1 mg PO PRN PRN 02/08/13 09/20/23 History acetaminophen 325 mg tablet 325 - 650 mg PO PRN 06/26/15 09/20/23 History (Tylenol) tamsulosin 0.4 mg capsule 0.4 mg PO DAILY 06/26/15 09/20/23 History gemfibrozil 600 mg tablet 600 mg PO BID 10/13/17 09/20/23 History simvastatin 20 mg tablet 20 mg PO DAILY 10/13/17 09/20/23 History multivitamin 1 tab PO DAILY 01/10/20 09/20/23 History omeprazole 20 mg capsule,delayed 20 mg PO DAILY 01/10/20 09/20/23 History release warfarin 3 mg tablet See Rx Instructions PO DAILY 03/08/21 09/20/23 History gabapentin 100 mg capsule 100 mg PO BID 05/24/21 09/20/23 History losartan 50 mg tablet 50 mg PO DAILY 11/26/22 09/20/23 History aspirin 81 mg tablet,delayed 81 mg PO DAILY 09/20/23 09/20/23 History release ferrous gluconate 324 mg (38 mg 324 mg PO DAILY 09/20/23 09/20/23 History iron) tablet furosemide 20 mg tablet 20 mg PO DAILY 09/20/23 09/20/23 History Exam Narrative Exam Narrative: Alert and oriented x4 HEENT: Atraumatic normocephalic, pupils equally round reactive to light and accommodation, extraocular motion intact, TMs intact, nares moist and patent without exudate or bleeding, oropharynx noninjected without exudate Neck: Supple, nontender, without thyromegaly or lymphadenopathy or JVD. Normal carotid pulses Lungs: Bibasilar rales no rhonchi or wheezing Heart: Tachycardic irregular with a harsh systolic murmur over the apex along with an apical thrill and left ventricular heave, chest wall with a healed sternotomy scar Abdomen: Nondistended, normal bowel sounds, nontender to palpation or percussion, no organomegaly, no bruits, no palpable masses Genitalia and rectal exam: Deferred Extremities: Normal range of motion with normal strength. No cyanosis but he has 3+ pedal and ankle and lower tibial edema. Both feet have deformities of his second toe, Both legs have scars along the medial aspect of the thigh and upper tibia consistent with prior femoropopliteal bypasses Neurologic: Cranial nerves II through XII grossly within normal limits. Normal strength and sensation over the face trunk and extremities. Results Labs 09/20/23 09:50 09/20/23 09:50 Labs: Laboratory Results - last 24 hr 09/20/23 09/20/23 09/20/23 09:50 10:08 10:11 WBC 11.92 H RBC 4.26 L Hgb 13.1 L Hct 40.7 MCV 96 H MCH 30.8 MCHC 32.2 RDW 13.7 Plt Count 467 H MPV 8.4 Immature Gran % 0.4 Neutrophils % 78.6 Lymphocytes % 13.3 Monocytes % 6.6 Eosinophils % 0.5 Basophils % 0.6 Nucleated RBC % 0.0 Absolute Neutrophils 9.37 H Absolute Lymphocytes 1.59 Absolute Monocytes 0.79 Absolute Eosinophils 0.06 Absolute Basophils 0.07 PT 14.5 H INR 1.5 H APTT 30.2 D-Dimer 2746 H VBG pH 7.39 VBG pCO2 33 L VBG pO2 34 VBG HCO3 20 L VBG Total CO2 18 L VBG O2 Saturation 64 VBG Base Excess -5 L Sodium 142 Potassium 3.3 L Chloride 106 Carbon Dioxide 20.8 L Anion Gap 15.2 H BUN 9 Creatinine 1.0 Est GFR (CKD-EPI 2020) 78.00 Glucose 124 H Calcium 9.6 Magnesium 1.6 L Total Bilirubin 1.1 H AST 87 H ALT 29 Alkaline Phosphatase 115 Troponin I [address] H* NT-Pro-B Natriuret Pep 3453 H Cancelled Total Protein 7.1 Albumin 3.3 L TSH 2.29 COVID-19 Source SARS-CoV-2 (PCR) Influenza Type A (PCR) Influenza Type B (PCR) RSV (PCR) 09/20/23 09/20/23 10:21 12:55 WBC RBC Hgb Hct MCV MCH MCHC RDW Plt Count MPV Immature Gran % Neutrophils % Lymphocytes % Monocytes % Eosinophils % Basophils % Nucleated RBC % Absolute Neutrophils Absolute Lymphocytes Absolute Monocytes Absolute Eosinophils Absolute Basophils PT INR APTT D-Dimer VBG pH VBG pCO2 VBG pO2 VBG HCO3 VBG Total CO2 VBG O2 Saturation VBG Base Excess Sodium Potassium Chloride Carbon Dioxide Anion Gap BUN Creatinine Est GFR (CKD-EPI 2020) Glucose Calcium Magnesium Total Bilirubin AST ALT Alkaline Phosphatase Troponin I 8992 H* NT-Pro-B Natriuret Pep Total Protein Albumin TSH COVID-19 Source Nasopharynx SARS-CoV-2 (PCR) Negative Influenza Type A (PCR) Negative Influenza Type B (PCR) Negative RSV (PCR) Negative Last Vital Signs Temp 36.9 C 09/20/23 13:34 Pulse 76 09/20/23 13:34 Resp 17 09/20/23 13:34 BP 146/76 H 09/20/23 13:34 Pulse Ox 97 09/20/23 13:34 Time Spent Time spent with Patient: 55-74 minutes Time was spent: preparing to see the patient(eg.review tests), obtaining and/or reviewing separately otained hiistory, ordering medications,tests, procedures, referring, communicating with other health in home caregiver, indepentently interpreting results, counseling the patient and care coordination
--- NOTE | 2023-09-20 14:03 | W.PC.ACHO ---
Registration Status: ADM IN Primary Language: Preferred Language: Danish ED Information & Data Chief Complaint SOB 09/20/23 09:52 Chief Complaint SOB 09/20/23 09:47 Triage Note SOB, exhaustion, dry cough. 09/20/23 09:42 EMS reports Pitting edema BLE, rales HX: cardiac Medical / Surgical History (Last Reviewed 05/27/23 @ 10:49 by Stephania Pandya MD) Atypical nevus Anxiety CAD (coronary artery disease) Elevated hemoglobin A1c Abdominal pain Pelvic pain Enlarged prostate Adrenal nodule AAA (abdominal aortic aneurysm) Osteoarthritis (Last Reviewed 05/27/23 @ 10:49 by Stephania Pandya MD) History of right inguinal hernia repair (~06/26/21) History of esophagogastroduodenoscopy (EGD) (~06/05/21) History of colonoscopy with polypectomy (~06/05/21) History of open heart surgery Hx of hernia repair Hx of colonoscopy History of tonsillectomy and adenoidectomy History of surgery on extremity Most Recent Vital Signs Temperature 36.9 C 09/20/23 13:34 Temperature Source Temporal Artery Scan 09/20/23 13:34 Pulse 76 09/20/23 13:34 Pulse 96 H 09/20/23 12:50 Respiratory Rate 17 09/20/23 13:34 Respiratory Effort Non-Labored 09/20/23 13:34 Respiratory Depth Normal 09/20/23 13:34 Respiratory Pattern Normal 09/20/23 13:34 Blood Pressure 146/76 H 09/20/23 13:34 Blood Pressure Mean 99 09/20/23 13:34 Blood Pressure Position Sitting 09/20/23 13:34 Pulse Oximetry 97 09/20/23 13:34 Oxygen Delivery Method Room Air 09/20/23 13:34 Oxygen Flow Rate 0 09/20/23 13:34 Pain Level 0 09/20/23 13:34 Allergies chlorpheniramine [From Tussionex] Allergy (Intermediate, Verified 09/20/23 09:46) rash hydrocodone [From Tussionex] Allergy (Mild, Verified 09/20/23 09:46) rash oxycodone Allergy (Verified 09/20/23 09:46) Pt. states I lose my sense of reality escitalopram oxalate [From Lexapro] Adverse Reaction (Severe, Verified 09/20/23 09:46) suidial ideations tramadol Adverse Reaction (Mild, Verified 09/20/23 09:46) Pt. states I lose my sense of reality Precautions Isolation Standard precaution 09/20/23 09:52 Active Medications Generic Name Dose Route Start Last Admin Trade Name Jacinta PRN Reason Stop Dose Admin Heparin Sodium/Sodium Chloride 25,000 unit in 250 mls @ 9.5 mls/hr 09/20/23 11:00 09/20/23 11:23 IV 950 units/hr INFUSION TERESA 9.5 mls/hr Administration Protocol 950 UNITS/HR Iohexol 100 ml 09/20/23 12:00 09/20/23 12:00 Omnipaque 350 Mg/Ml 100 Ml Btl IJ 10/20/23 23:59 100 ml DIRECTED TERESA Administration Sodium Chloride 50 ml 09/20/23 12:00 09/20/23 11:59 Normal Saline - Diluent 50 Ml Vial IJ 50 ml .FOR DI USE TERESA Administration IV IV Catheter Type [Right Saline Lock Antecubital] IV Catheter Type [Left Peripheral IV Antecubital] IV Catheter Gauge [Right 18 Antecubital] IV Catheter Gauge [Left 18 Antecubital] Diet Orders Category Date Time Status Heart Healthy Eating [DIET] Nutrition 09/20/23 Lunch Active Diagnostics 09/20/23 09/20/23 09/20/23 Range/Units 18:00 12:55 10:21 WBC (4.4-10.8) 10^3/uL RBC (4.36-5.78) 10^6/uL Hgb (13.5-17.5) g/dL Hct (40.0-50.0) % MCV (80-95) fL MCH (27.0-33.0) pg MCHC (32.0-36.0) % RDW (11.8-14.1) % Plt Count (130-400) 10^3/uL MPV (8.0-11.0) fL Immature Gran % Neutrophils % Lymphocytes % Monocytes % Eosinophils % Basophils % Nucleated RBC % (0.0-0.3) % Absolute Neutrophils (1.2-6.7) 10^3/uL Absolute Lymphocytes (1.2-3.4) 10^3/uL Absolute Monocytes (0.1-0.8) 10^3/uL Absolute Eosinophils (0.0-0.7) 10^3/uL Absolute Basophils (0.0-0.2) 10^3/uL PT (9.1-11.1) sec INR (0.9-1.1) APTT (23.6-32.8) sec D-Dimer (<500) ng/mlFEU VBG pH (7.31-7.41) VBG pCO2 (41-51) mmHg VBG pO2 mmHg VBG HCO3 (23-28) mmol/L VBG Total CO2 (24-29) mmol/L VBG O2 Saturation % VBG Base Excess (-2-3) mmol/L Sodium (136-145) mmol/L Potassium (3.5-5.1) mmol/L Chloride (98-107) mmol/L Carbon Dioxide (21.0-32.0) mmol/L Anion Gap (3-11) mmol/L BUN (7-18) mg/dL Creatinine (0.70-1.30) mg/dL Est GFR (CKD-EPI 2020) (mL/min/1.73m2) Glucose (74-106) mg/dL Calcium (8.5-10.1) mg/dL Magnesium (1.8-2.4) mg/dL Total Bilirubin (0.2-1.0) mg/dL AST (15-37) U/L ALT (16-63) U/L Alkaline Phosphatase (46-116) U/L Troponin I Pending 8992 H* (< or =60) ng/L NT-Pro-B Natriuret Pep (<300) pg/mL Total Protein (6.4-8.2) g/dL Albumin (3.4-5.0) g/dL TSH (0.36-3.74) uIU/mL COVID-19 Source Nasopharynx SARS-CoV-2 (PCR) Negative (Negative) Influenza Type A (PCR) Negative (Negative) Influenza Type B (PCR) Negative (Negative) RSV (PCR) Negative (Negative) 09/20/23 09/20/23 09/20/23 Range/Units 10:11 10:08 09:50 WBC 11.92 H (4.4-10.8) 10^3/uL RBC 4.26 L (4.36-5.78) 10^6/uL Hgb 13.1 L (13.5-17.5) g/dL Hct 40.7 (40.0-50.0) % MCV 96 H (80-95) fL MCH 30.8 (27.0-33.0) pg MCHC 32.2 (32.0-36.0) % RDW 13.7 (11.8-14.1) % Plt Count 467 H (130-400) 10^3/uL MPV 8.4 (8.0-11.0) fL Immature Gran % 0.4 Neutrophils % 78.6 Lymphocytes % 13.3 Monocytes % 6.6 Eosinophils % 0.5 Basophils % 0.6 Nucleated RBC % 0.0 (0.0-0.3) % Absolute Neutrophils 9.37 H (1.2-6.7) 10^3/uL Absolute Lymphocytes 1.59 (1.2-3.4) 10^3/uL Absolute Monocytes 0.79 (0.1-0.8) 10^3/uL Absolute Eosinophils 0.06 (0.0-0.7) 10^3/uL Absolute Basophils 0.07 (0.0-0.2) 10^3/uL PT 14.5 H (9.1-11.1) sec INR 1.5 H (0.9-1.1) APTT 30.2 (23.6-32.8) sec D-Dimer 2746 H (<500) ng/mlFEU VBG pH 7.39 (7.31-7.41) VBG pCO2 33 L (41-51) mmHg VBG pO2 34 mmHg VBG HCO3 20 L (23-28) mmol/L VBG Total CO2 18 L (24-29) mmol/L VBG O2 Saturation 64 % VBG Base Excess -5 L (-2-3) mmol/L Sodium 142 (136-145) mmol/L Potassium 3.3 L (3.5-5.1) mmol/L Chloride 106 (98-107) mmol/L Carbon Dioxide 20.8 L (21.0-32.0) mmol/L Anion Gap 15.2 H (3-11) mmol/L BUN 9 (7-18) mg/dL Creatinine 1.0 (0.70-1.30) mg/dL Est GFR (CKD-EPI 2020) 78.00 (mL/min/1.73m2) Glucose 124 H (74-106) mg/dL Calcium 9.6 (8.5-10.1) mg/dL Magnesium 1.6 L (1.8-2.4) mg/dL Total Bilirubin 1.1 H (0.2-1.0) mg/dL AST 87 H (15-37) U/L ALT 29 (16-63) U/L Alkaline Phosphatase 115 (46-116) U/[place]onin I 57735 H* (< or =60) ng/L NT-Pro-B Natriuret Pep Cancelled 3453 H (<300) pg/mL Total Protein 7.1 (6.4-8.2) g/dL Albumin 3.3 L (3.4-5.0) g/dL TSH 2.29 (0.36-3.74) uIU/mL COVID-19 Source SARS-CoV-2 (PCR) (Negative) Influenza Type A (PCR) (Negative) Influenza Type B (PCR) (Negative) RSV (PCR) (Negative) Intake and Output - 24 Hour Total 09/20/23 09:39 thru 09/20/23 14:01 Intake Total 120 Output Total 1700 Balance -1580 Weight 72.9 kg Intake: IV 20 Oral 100 Output: Urine 1700 Other: Urine Color Yellow Urine Appearance Clear Urine Odor None Voiding Methods Urinal # Voids 1 Falls Risk Assessment History of Falls No History 09/20/23 13:34 Contributing Factors No Factors 09/20/23 13:34 Ambulatory Aids Uses ambulatory device 09/20/23 13:34 Tubes/Lines W/no contributing factors 09/20/23 13:34 Gait Evaluation No gait disturbance 09/20/23 13:34 Cognition No cognitive impairment 09/20/23 13:34 Fall Total Score 25 09/20/23 13:34 Level of Risk Moderate Risk 09/20/23 13:34 Problems (Last Reviewed 05/27/23 @ 10:49 by Stephania Pandya MD) Acute non-ST elevation myocardial infarction (NSTEMI) (Acute) Acute on chronic HFrEF (heart failure with reduced ejection fraction) (Acute) v v v v v v v v v Sending and/or Receiving Nurses: Please use comment section below to note any information pertinent to the patient hand-off not included above. Information / Comments: Report received from: Alexa Mayer ED RN
[2023-09-20] MEDS: Potassium Chloride 10 MEQ CAPCR 40 MEQ PO (14:56)
[2023-09-20] MEDS: MAGNESIUM SULFATE 2 GM/50 ML BAG IVPB (16:21)
[2023-09-20] MEDS: Metoprolol 5 MG/5 ML VIAL 2.5 MG IVP (16:22)
[2023-09-20 18:33] LABS: Troponin I 7578 ng/L (< or =60)
[2023-09-20 18:39] LABS: PTT Activated 80.2 sec (23.6-32.8)
[2023-09-20] MEDS: Potassium Chloride 10 MEQ CAPCR 20 MEQ PO (19:50)
[2023-09-20] MEDS: Gabapentin 100 MG CAP PO (19:51)
[2023-09-20] MEDS: Normal Saline Flush 10 ML SYR IVP (19:51)
[2023-09-20] MEDS: LORazepam 1 MG TAB PO (22:42)
[2023-09-21] VITALS (26 sets, daily range): BP systolic 101–142; BP diastolic 62–75; PULSE 49–53; RESP 12–25; TEMP 36.7–36.9; O2SAT 89–98
[2023-09-21 00:17] LABS: PTT Activated 47.4 sec (23.6-32.8)
--- NOTE | 2023-09-21 03:37 | NUR.NOTE ---
Nursing Note: Confirmed with Monica @ [facility] that patient was accepted by Dr Mejia on behalf of Dr Glasgow. No bed available yet.
[2023-09-21] MEDS: Normal Saline Flush 10 ML SYR IVP ×3 (04:04→09:05)
[2023-09-21] MEDS: Heparin in 0.45% NaCl 25,000 UNIT/250 ML BAG 11 UNIT IV (04:05)
[2023-09-21 06:46] LABS: Abs Immature Grans 0.02 10^3/uL (0.0-0.06); Absolute Basophil Count 0.08 10^3/uL (0.0-0.2); Absolute Eosinophil Count 0.15 10^3/uL (0.0-0.7); Absolute Lymphocyte Count 2.27 10^3/uL (1.2-3.4); Absolute Monocyte Count 0.72 10^3/uL (0.1-0.8); Absolute Neutrophil Count 4.14 10^3/uL (1.2-6.7); Basophils % 1.1; HCT 34.9 % (40.0-50.0); HGB 11.2 g/dL (13.5-17.5); Immature Grans % 0.3; Lymphocytes % 30.8; MCH 30.2 pg (27.0-33.0); MCHC 32.1 % (32.0-36.0); MCV 94 fL (80-95); MPV 8.3 fL (8.0-11.0); Monocytes % 9.8; Platelet Count 375 10^3/uL (130-400); RBC 3.71 10^6/uL (4.36-5.78); RDW 13.8 % (11.8-14.1); RDW-SD 47.8 fL; WBC 7.38 10^3/uL (4.4-10.8)
[2023-09-21 07:06] LABS: Anion Gap 12.9 mmol/L (3-11); BUN 11 mg/dL (7-18); CO2 22.1 mmol/L (21.0-32.0); CREATININE 0.9 mg/dL (0.70-1.30); Calcium 8.7 mg/dL (8.5-10.1); Chloride 107 mmol/L (98-107); Estimated GFR 88.51 (mL/min/1.73m2); Glucose 94 mg/dL (74-106); INR 1.5 (0.9-1.1); Potassium 3.1 mmol/L (3.5-5.1); Prothrombin Time 14.4 sec (9.1-11.1); Sodium 142 mmol/L (136-145)
[2023-09-21 07:09] LABS: Troponin I 6014 ng/L (< or =60)
[2023-09-21] MEDS: Omeprazole 20 MG CAPCR PO (08:12)
[2023-09-21] MEDS: Aspirin E.C. 81 MG TABEC PO (08:13)
[2023-09-21] MEDS: Clopidogrel 75 MG TAB PO (08:13)
[2023-09-21] MEDS: Tamsulosin 0.4 MG CAPCR PO (08:14)
[2023-09-21] MEDS: Gemfibrozil 600 MG TAB PO (08:14)
[2023-09-21] MEDS: Gabapentin 100 MG CAP PO (08:14)
[2023-09-21] MEDS: Losartan 50 MG TAB PO (08:15)
[2023-09-21] MEDS: Multivitamin TAB 1 TAB PO (08:15)
[2023-09-21] MEDS: Simvastatin 20 MG TAB PO (08:15)
--- NOTE | 2023-09-21 08:20 | INITIAL_ITS ---
Date of service: 09/21/23 Time of Service: 08:20 Care Management Initial Assmt Initial Assessment REASON FOR HOSPITALIZATION:: NSTEMI PREVIOUS FUNCTIONAL STATUS/SOCIAL/FAMILY SUPPORTS:: Sam lives in an apartment in [place], [place]. CURRENT FUNCTIONAL STATUS:: Sam was admitted with an NSTEMI and is awaiting transfer to [facility]. CM unable to meet with Sam before transfer. Information obtained from staff, providers and chart review. ADVANCE DIRECTIVES:: On file. [facility] Has patient been provided with info about the portal/API?: Yes Did the patient sign up for the portal?: Yes CODE STATUS:: Full Code INSURANCE COVERAGE / FINANCIAL ISSUES:: Medicare PRIMARY CARE PHYSICIAN:: Indu Maya POTENTIAL DISCHARGE NEEDS:: patient to be transferred to [facility] PATIENT/FAMILY EDUCATION NEEDS:: Expectations, limitations, plan of care TRANSPORTATION:: via EMS coordinated by nursing warehouse receiving supervisor PLAN:: Sam has been accepted for transfer by [facility] and is awaiting a bed. He will transport via EMS coordinated by nursing warehouse receiving supervisor. CM will follow. PFSH All Active Problems Acute non-ST elevation myocardial infarction (NSTEMI) (Acute) Acute on chronic HFrEF (heart failure with reduced ejection fraction) (Acute) Elevated troponin level (Acute) CHF (congestive heart failure) (Chronic) Melanoma (Acute) Skin lesion of cheek (Acute) Internal derangement of left knee (Acute) Left ventricular aneurysm (Acute) Hallux valgus (acquired), left foot (Acute) Hallux valgus (acquired), right foot (Acute) Hip pain, right (Acute) RLQ abdominal pain (Acute) Abnormal CT of the abdomen (Acute) Hiatal hernia with GERD (Acute) Diverticula of colon (Acute) pandiverticula - severe diverticula that carry all the way over to the cecum Recurrent right inguinal hernia (Acute) Adenomatous colon polyp (Acute) GERD (gastroesophageal reflux disease) (Chronic) Hx of hyperlipidemia (Acute) BPH loc w urin obs/LUTS (Acute) Arthritis of right hip (Acute 10/13/17) Atherosclerotic cardiovascular disease (Acute) Peripheral vascular disease (Chronic) 2013: [facility]: Left iliofemoral endarterectomy with patch angioplasty, Left femoral->peroneal bypass. 11/24/13 [facility]: Left external iliac artery stentgraft placed, ligation left leg bypass graft fistula. HTN (hypertension) (Chronic) Atrial fibrillation (Chronic) Medical History Atypical nevus Anxiety CAD (coronary artery disease) 03/2020 CABG X6, LV aneurysm repair, RANDELL removal Elevated hemoglobin A1c Abdominal pain Pelvic pain Enlarged prostate Adrenal nodule AAA (abdominal aortic aneurysm) 02/2021: 3.9cm AAA Osteoarthritis Surgical History History of right inguinal hernia repair (~06/26/21) History of esophagogastroduodenoscopy (EGD) (~06/05/21) History of colonoscopy with polypectomy (~06/05/21) History of open heart surgery Pt states placed 4 or 5 stents post heart attack - 2020 Hx of hernia repair x5 Hx of colonoscopy History of tonsillectomy and adenoidectomy History of surgery on extremity bilat lower extremity bypass/vascular Social History Smoking/Tobacco Use Status: Former Tobacco Use Quit Date: 09/08/95 Smoking risk assessment performed?: Yes Alcohol Intake: current Alcohol Intake frequency: holidays/special occasions only Alcohol type: wine Drug use: Never Substance use type: does not use Housing: house Current gender identity: male What type of physical activity do you participate in: additional Details: 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[employer]), PT Do you feel safe at home: Yes Do you feel safe in your relationship?: Yes SDOH(Care Management) Screening Will the Patient Participate in the Screening?: Yes Do you worry about having a steady place to live?: no Problems where you live: no known problems In the past 12 months, have you had to go without electric, gas, oil or water in your home?: no Have you or anyone in your house had to go without enough food to eat?: no Has lack of transportation kept you from medical appointments or from doing things needed for daily living?: no Has anyone in your support network made you feel unsafe for any reason?: no
[2023-09-21] MEDS: Potassium Chloride 10 MEQ CAPCR 20 MEQ PO (08:21)
[2023-09-21] MEDS: Furosemide 40 MG/4 ML VIAL IVP (08:22)
[2023-09-21] MEDS: Potassium Chloride 10 MEQ CAPCR 40 MEQ PO (09:20)
--- NOTE | 2023-09-21 09:41 | W.PM.PROGNOT ---
Date of Service Date of service: 09/21/23 Time of Service: 09:41 Objective Last Vital Signs Temp 36.8 C 09/21/23 04:01 Pulse 50 L 09/21/23 06:00 Resp 12 09/21/23 06:00 BP 136/70 09/21/23 06:00 Pulse Ox 97 09/21/23 06:00 Laboratory Results - last 24 hr 09/20/23 09/20/23 09/20/23 09:50 10:08 10:11 WBC 11.92 H RBC 4.26 L Hgb 13.1 L Hct 40.7 MCV 96 H MCH 30.8 MCHC 32.2 RDW 13.7 Plt Count 467 H MPV 8.4 Immature Gran % 0.4 Neutrophils % 78.6 Lymphocytes % 13.3 Monocytes % 6.6 Eosinophils % 0.5 Basophils % 0.6 Nucleated RBC % 0.0 Absolute Neutrophils 9.37 H Absolute Lymphocytes 1.59 Absolute Monocytes 0.79 Absolute Eosinophils 0.06 Absolute Basophils 0.07 PT 14.5 H INR 1.5 H APTT 30.2 D-Dimer 2746 H VBG pH 7.39 VBG pCO2 33 L VBG pO2 34 VBG HCO3 20 L VBG Total CO2 18 L VBG O2 Saturation 64 VBG Base Excess -5 L Sodium 142 Potassium 3.3 L Chloride 106 Carbon Dioxide 20.8 L Anion Gap 15.2 H BUN 9 Creatinine 1.0 Est GFR (CKD-EPI 2020) 78.00 Glucose 124 H Calcium 9.6 Magnesium 1.6 L Total Bilirubin 1.1 H AST 87 H ALT 29 Alkaline Phosphatase 115 [place] I 87017 H* NT-Pro-B Natriuret Pep 3453 H Cancelled Total Protein 7.1 Albumin 3.3 L TSH 2.29 COVID-19 Source SARS-CoV-2 (PCR) Influenza Type A (PCR) Influenza Type B (PCR) RSV (PCR) 09/20/23 09/20/23 09/20/23 10:21 12:55 17:57 WBC RBC Hgb Hct MCV MCH MCHC RDW Plt Count MPV Immature Gran % Neutrophils % Lymphocytes % Monocytes % Eosinophils % Basophils % Nucleated RBC % Absolute Neutrophils Absolute Lymphocytes Absolute Monocytes Absolute Eosinophils Absolute Basophils PT INR APTT 80.2 H* D-Dimer VBG pH VBG pCO2 VBG pO2 VBG HCO3 VBG Total CO2 VBG O2 Saturation VBG Base Excess Sodium Potassium Chloride Carbon Dioxide Anion Gap BUN Creatinine Est GFR (CKD-EPI 2020) Glucose Calcium Magnesium Total Bilirubin AST ALT Alkaline Phosphatase Troponin I 8992 H* 7578 H* NT-Pro-B Natriuret Pep Total Protein Albumin TSH COVID-19 Source Nasopharynx SARS-CoV-2 (PCR) Negative Influenza Type A (PCR) Negative Influenza Type B (PCR) Negative RSV (PCR) Negative 09/20/23 09/21/23 09/21/23 23:34 05:35 06:30 WBC 7.38 RBC 3.71 L Hgb 11.2 L Hct 34.9 L MCV 94 MCH 30.2 MCHC 32.1 RDW 13.8 Plt Count 375 MPV 8.3 Immature Gran % 0.3 Neutrophils % 56.0 Lymphocytes % 30.8 Monocytes % 9.8 Eosinophils % 2.0 Basophils % 1.1 Nucleated RBC % 0.0 Absolute Neutrophils 4.14 Absolute Lymphocytes 2.27 Absolute Monocytes 0.72 Absolute Eosinophils 0.15 Absolute Basophils 0.08 PT Cancelled 14.4 H INR Cancelled 1.5 H APTT 47.4 H D-Dimer VBG pH VBG pCO2 VBG pO2 VBG HCO3 VBG Total CO2 VBG O2 Saturation VBG Base Excess Sodium 142 Potassium 3.1 L Chloride 107 Carbon Dioxide 22.1 Anion Gap 12.9 H BUN 11 Creatinine 0.9 Est GFR (CKD-EPI 2020) 88.51 Glucose 94 Calcium 8.7 Magnesium 2.0 Total Bilirubin AST ALT Alkaline Phosphatase Troponin I 6014 H* NT-Pro-B Natriuret Pep Total Protein Albumin TSH COVID-19 Source SARS-CoV-2 (PCR) Influenza Type A (PCR) Influenza Type B (PCR) RSV (PCR)
--- NOTE | 2023-09-21 10:26 | DSE_ITS ---
Date of service: 09/21/23 Time of Service: 10:26 DS: Diagnosis Discharge Diagnosis (1) Acute non-ST elevation myocardial infarction (NSTEMI): Status: Acute (2) Acute on chronic HFrEF (heart failure with reduced ejection fraction): Status: Acute (3) Atherosclerotic cardiovascular disease: Status: Acute (4) HTN (hypertension): Status: Chronic (5) Atrial fibrillation: Status: Chronic (6) CAD (coronary artery disease): Discharge Plan Disposition Patient Disposition: Transfer-Acute Inpatient Care Specific Acute Inpt Facility: [facility] Condition: Serious Discharge Details Reason For Visit: Nstemi, CHF Admit Date/Time: 09/20/23 11:38 Admit Provider: Joey Islas Attending Provider: Joey Islas Primary Care Provider: KIM NUNEZ Hospital Course Hospital Course: See admission H&P for details of the patient's past medical history and presenting complaints. This 77-year-old male with history of coronary artery disease, chronic atrial fibrillation, recent pacemaker placement, previous CABG, presented to the emergency department with acute onset of orthopnea and PND beginning the night prior to admission associated with increasing bilateral lower extremity edema over the last month. Patient was found to have an NSTEMI with troponin level of 11,366 and elevated proBNP of 3400. EKG demonstrated ventricular paced rhythm at a rate of 106 bpm. Chest x-ray showed acute congestive heart failure changes as did his bedside lung POCUS exam. [facility] [place] by our ED provider Dr. Muhammad and they indicated they were willing to transfer the patient but had no bed availability and recommend we treat him medically for an NSTEMI including loading him with Plavix 600 mg and aspirin 324 mg and started him on a heparin drip. Patient also received Lasix 40 mg IV push. He was admitted to our medical intensive care unit and monitored overnight. He had no chest pain or chest pressure overnight and had no arrhythmias. He was given a one-time dose of Lopressor 2.5 mg IV on arrival to the intensive care unit for his tachycardia. This put him into a completely ventricular paced rhythm at 50 bpm. Patient continued to receive IV Lasix and was diuresed overnight. This improved his dyspnea remarkably and decreased his peripheral edema. However he was found to be hypokalemic and potassium dropped down to 3.1 but he did receive oral supplementation of 60 mill equivalents of potassium on the morning of his [place] [facility] [place] Repeat potassium and magnesium level were ordered for this afternoon however the patient was accepted in transfer [place] [facility] [place] repeat level was drawn. Patient was hemodynamically stable at the time of transfer although his condition is serious given his presenting diagnoses.Patient will be transferred to service of Dr. Glasgow at [facility] [place]. Admission weight was 78.9 kg and his discharge weight was 71.4 kg. Patient diuresed 3900 mL overnight and his overall intake and output was net -2900 mL. Discharge labs showed normal BUN of 11 creatinine 0.9 low potassium 3.1 which is being supplemented and magnesium level 2.0. Troponin I level is down trended to 6000 from a peak of over 11,000. proBNP on admission was 3400 and has not been repeated. Home Meds and New Rx's Prescriptions: No Action gabapentin 100 mg capsule 100 mg PO BID losartan 50 mg tablet 50 mg PO DAILY omeprazole 20 mg capsule,delayed release(DR/EC) 20 mg PO DAILY multivitamin Tablet 1 tab PO DAILY warfarin 3 mg tablet See Rx Instructions PO DAILY Patient Comments: takes 2.5 mg daily Rx Instructions: takes 2.5mg 4 times a week then 5 mg 3 times a wk. PO daily; acetaminophen [Tylenol] 325 MG tablet 325 - 650 mg PO PRN tamsulosin 0.4 MG capsule 0.4 mg PO DAILY gemfibrozil 600 MG tablet 600 mg PO BID simvastatin 20 MG tablet 20 mg PO DAILY lorazepam 1 MG tablet 1 mg PO PRN PRN aspirin 81 mg tablet,delayed release (DR/EC) 81 mg PO DAILY ferrous gluconate 324 mg (38 mg iron) tablet 324 mg PO DAILY Patient Comments: have not been able to start yet furosemide 20 mg tablet 20 mg PO DAILY Discharge Instructions Instructions: Heart Attack (DC), Heart Healthy Diet (DC) Referrals: Omar Glasgow MD [ NON-[facility] STAFF PHYSICIAN] - Activity:: Activity as Tolerated Equipment/Supplies:: No Equipment Needed Diet:: Low Sodium Discharge Orders Discharge Orders: Discharge Order (Routine); Ordered 09/21/23 Ordered By: Joey Islas DS: Summary Time Spent with Patient providing and/or coordinating discharge services: Less than 30 minutes Specific discharge activities: Interview/exam of patient, educating patient and/or family about need for transfer and alternative treatment options, coordination of transfer w/ receiving facility and discussion of case w/ accepting provider(s), completion of transfer orders and discharge summary Status at Discharge Functional status at discharge: independent ambulation Overall status at discharge: patient is progressing back to baseline Mental Status: mental status grossly normal Speech and Movement: speech and movement normal Mood: congruent mood Affect: normal affect Quality:SDOH Health Related Social Needs: No Data to Display Quality: AMI Clinical Trial Participant: No Exam Narrative Exam Narrative: Sam is sitting up in his chair having just eaten breakfast he is alert and oriented x 3 no acute distress. He remarks how much the edema is going down his legs. He is breathing much better today. He is no longer requiring supplemental oxygen. SpO2 is 96%. Lungs are clear anteriorly posteriorly still has some residual bibasilar rales no rhonchi or wheezing Heart is regular monitor shows he is paced rhythm. He has a soft systolic murmur over the apex Abdomen soft nondistended Lower extremities still has 1+ pitting edema both feet and ankles. However we can now see some definition of his ankles. There is no peripheral cyanosis. Psych Mental Status: mental status grossly normal Speech and Movement: speech and movement normal Mood: congruent mood Affect: normal affect DS: Data Vitals/I&O Vitals and I&O: Vital Signs Temperature 36.9 C 09/21/23 09:35 Temperature Source Temporal Artery Scan 09/21/23 09:35 Pulse 50 L 09/21/23 09:35 Pulse 50 L 09/21/23 06:00 Respiratory Rate 18 09/21/23 09:35 Respiratory Effort Normal, Non-Labored 09/21/23 09:35 Respiratory Depth Normal 09/21/23 09:35 Respiratory Pattern Normal 09/21/23 09:35 Blood Pressure 116/62 09/21/23 09:35 Blood Pressure Mean 80 09/21/23 09:35 Blood Pressure Position Supine 09/21/23 09:35 Pulse Oximetry 96 09/21/23 09:35 Oxygen Delivery Method Room Air 09/21/23 09:35 Oxygen Flow Rate 0 09/21/23 09:35 Pain Level 0 09/21/23 09:35 Intake & Output 09/20/23 09/20/23 09/21/23 11:59 23:59 11:59 Intake Total 20 / 309.192 289.192 / 309.192 690.416 / 690.416 Output Total 725 / 3400 2675 / 3400 500 / 500 Balance -705 / -3090.808 -2385.808 / -3090.808 190.416 / 190.416 Weight 78.925 kg 72.9 kg 71.4 kg Intake: IV 20 / .192 69.192 / 89.192 130.416 / 130.416 Oral 220 / 220 560 / 560 Output: Urine 725 / 3400 2675 / 3400 500 / 500 Other: Urine Color Pale Yellow Yellow Straw Urine Appearance Clear Clear Urine Odor None Normal Stool Size Small Stool Characteristics Soft Voiding Methods Urinal Urinal # Voids 1 1 Data Completed and Pending Labs on day of discharge: Labs from last 24 hours 09/21/23 09/21/23 09/21/23 14:00 13:30 06:30 WBC 7.38 RBC 3.71 L Hgb 11.2 L Hct 34.9 L MCV 94 MCH 30.2 MCHC 32.1 RDW 13.8 Plt Count 375 MPV 8.3 Immature Gran % 0.3 Neutrophils % 56.0 Lymphocytes % 30.8 Monocytes % 9.8 Eosinophils % 2.0 Basophils % 1.1 Nucleated RBC % 0.0 Absolute Neutrophils 4.14 Absolute Lymphocytes 2.27 Absolute Monocytes 0.72 Absolute Eosinophils 0.15 Absolute Basophils 0.08 PT 14.4 H INR 1.5 H APTT Pending D-Dimer Sodium 142 Potassium Pending 3.1 L Chloride 107 Carbon Dioxide 22.1 Anion Gap 12.9 H BUN 11 Creatinine 0.9 Est GFR (CKD-EPI 2020) 88.51 Glucose 94 Calcium 8.7 Magnesium 2.0 Total Bilirubin AST ALT Alkaline Phosphatase Troponin I 6014 H* NT-Pro-B Natriuret Pep Total Protein Albumin TSH COVID-19 Source SARS-CoV-2 (PCR) Influenza Type A (PCR) Influenza Type B (PCR) RSV (PCR) 09/21/23 09/20/23 09/20/23 05:35 23:34 17:57 WBC RBC Hgb Hct MCV MCH MCHC RDW Plt Count MPV Immature Gran % Neutrophils % Lymphocytes % Monocytes % Eosinophils % Basophils % Nucleated RBC % Absolute Neutrophils Absolute Lymphocytes Absolute Monocytes Absolute Eosinophils Absolute Basophils PT Cancelled INR Cancelled APTT 47.4 H 80.2 H* D-Dimer Sodium Potassium Chloride Carbon Dioxide Anion Gap BUN Creatinine Est GFR (CKD-EPI 2020) Glucose Calcium Magnesium Total Bilirubin AST ALT Alkaline Phosphatase Troponin I 7578 H* NT-Pro-B Natriuret Pep Total Protein Albumin TSH COVID-19 Source SARS-CoV-2 (PCR) Influenza Type A (PCR) Influenza Type B (PCR) RSV (PCR) 09/20/23 09/20/23 09/20/23 12:55 10:21 10:08 WBC RBC Hgb Hct MCV MCH MCHC RDW Plt Count MPV Immature Gran % Neutrophils % Lymphocytes % Monocytes % Eosinophils % Basophils % Nucleated RBC % Absolute Neutrophils Absolute Lymphocytes Absolute Monocytes Absolute Eosinophils Absolute Basophils PT INR APTT 30.2 D-Dimer 2746 H Sodium Potassium Chloride Carbon Dioxide Anion Gap BUN Creatinine Est GFR (CKD-EPI 2020) Glucose Calcium Magnesium Total Bilirubin AST ALT Alkaline Phosphatase Troponin I 8992 H* NT-Pro-B Natriuret Pep Total Protein Albumin TSH COVID-19 Source Nasopharynx SARS-CoV-2 (PCR) Negative Influenza Type A (PCR) Negative Influenza Type B (PCR) Negative RSV (PCR) Negative 09/20/23 09:50 WBC 11.92 H RBC 4.26 L Hgb 13.1 L Hct 40.7 MCV 96 H MCH 30.8 MCHC 32.2 RDW 13.7 Plt Count 467 H MPV 8.4 Immature Gran % 0.4 Neutrophils % 78.6 Lymphocytes % 13.3 Monocytes % 6.6 Eosinophils % 0.5 Basophils % 0.6 Nucleated RBC % 0.0 Absolute Neutrophils 9.37 H Absolute Lymphocytes 1.59 Absolute Monocytes 0.79 Absolute Eosinophils 0.06 Absolute Basophils 0.07 PT 14.5 H INR 1.5 H APTT D-Dimer Sodium 142 Potassium 3.3 L Chloride 106 Carbon Dioxide 20.8 L Anion Gap 15.2 H BUN 9 Creatinine 1.0 Est GFR (CKD-EPI 2020) 78.00 Glucose 124 H Calcium 9.6 Magnesium 1.6 L Total Bilirubin 1.1 H AST 87 H ALT 29 Alkaline Phosphatase 115 T[place]onin I 41802 H* NT-Pro-B Natriuret Pep 3453 H Total Protein 7.1 Albumin 3.3 L TSH 2.29 COVID-19 Source SARS-CoV-2 (PCR) Influenza Type A (PCR) Influenza Type B (PCR) RSV (PCR) PFSH All Active Problems Acute non-ST elevation myocardial infarction (NSTEMI) (Acute) Acute on chronic HFrEF (heart failure with reduced ejection fraction) (Acute) Elevated troponin level (Acute) CHF (congestive heart failure) (Chronic) Melanoma (Acute) Skin lesion of cheek (Acute) Internal derangement of left knee (Acute) Left ventricular aneurysm (Acute) Hallux valgus (acquired), left foot (Acute) Hallux valgus (acquired), right foot (Acute) Hip pain, right (Acute) RLQ abdominal pain (Acute) Abnormal CT of the abdomen (Acute) Hiatal hernia with GERD (Acute) Diverticula of colon (Acute) pandiverticula - severe diverticula that carry all the way over to the cecum Recurrent right inguinal hernia (Acute) Adenomatous colon polyp (Acute) GERD (gastroesophageal reflux disease) (Chronic) Hx of hyperlipidemia (Acute) BPH loc w urin obs/LUTS (Acute) Arthritis of right hip (Acute 10/13/17) Atherosclerotic cardiovascular disease (Acute) Peripheral vascular disease (Chronic) [place] [facility] [place] iliofemoral endarte[place] with patch angioplasty, Left femoral->peroneal bypass. 11/24/13 [facility] [place] Left external iliac artery stentgraft placed, ligation left leg bypass graft fistula. HTN (hypertension) (Chronic) Atrial fibrillation (Chronic) Medical History Atypical nevus Anxiety CAD (coronary artery disease) 03/2020 CABG X6, LV aneurysm repair, RANDELL removal Elevated hemoglobin A1c Abdominal pain Pelvic pain Enlarged prostate Adrenal nodule AAA (abdominal aortic aneurysm) 02/2021: 3.9cm AAA Osteoarthritis Surgical History History of right inguinal hernia repair (~06/26/21) History of esophagogastroduodenoscopy (EGD) (~06/05/21) History of colonoscopy with polypectomy (~06/05/21) History of open heart surgery Pt states placed 4 or 5 stents post heart attack - 2020 Hx of hernia repair x5 Hx of colonoscopy History of tonsillectomy and adenoidectomy History of surgery on extremity bilat lower extremity bypass/vascular Social History Smoking/Tobacco Use Status: Former Tobacco Use Quit Date: 09/08/95 Smoking risk assessment performed?: Yes Alcohol Intake: current Alcohol Intake frequency: holidays/special occasions only Alcohol type: wine Drug use: Never Substance use type: does not use Housing: house Current gender identity: male What type of physical activity do you participate in: additional Details: 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
== END 2023-09-21 12:06 | disposition short-term general hospital (02) | DRG 280 ==
LOC: ER 11:38 → ICU 13:02
PROVIDERS: Admitting Provider Internal Medicine; Emergency Provider Emergency Medicine; PCP Nurse Practitioner Family; Visit Provider Internal Medicine
DX: I21.4 Non-ST elevation (NSTEMI) myocardial infarction (principal); I50.23 Acute on chronic systolic (congestive) heart failure; I25.10 Atherosclerotic heart disease of native coronary artery without angina pectoris; I11.0 Hypertensive heart disease with heart failure; I48.0 Paroxysmal atrial fibrillation; E87.6 Hypokalemia; I25.110 Atherosclerotic heart disease of native coronary artery with unstable angina pectoris; Z95.1 Presence of aortocoronary bypass graft; I49.5 Sick sinus syndrome; Z95.0 Presence of cardiac pacemaker; M20.12 Hallux valgus (acquired), left foot; M20.11 Hallux valgus (acquired), right foot; K44.9 Diaphragmatic hernia without obstruction or gangrene; K21.9 Gastro-esophageal reflux disease without esophagitis; K57.30 Diverticulosis of large intestine without perforation or abscess without bleeding; I73.9 Peripheral vascular disease, unspecified; E78.5 Hyperlipidemia, unspecified; N40.1 Benign prostatic hyperplasia with lower urinary tract symptoms; M16.11 Unilateral primary osteoarthritis, right hip; Z95.820 Peripheral vascular angioplasty status with implants and grafts; F41.9 Anxiety disorder, unspecified; Z95.5 Presence of coronary angioplasty implant and graft; I71.40 Abdominal aortic aneurysm, without rupture, unspecified
CPT/HCPCS: 00123; 36415; 71275; 80048; 80053; 82805; 87637; 93005; 93308; 96365; 96366; 96375; 99285; 71045; 83735; 83880; 84132; 84443; 84484; 85025; 85379; 85610; 85730; 93010; 99238; 99291; J1644; J1940; J3475; J3490

== ENCOUNTER 2023-10-06 15:02 | Outpatient (RCR) | payer MEDICARE, SELFPAY | END 2023-10-08 23:59 | disposition home or self-care (01) | LOC: CR 15:02 | PROVIDERS: PCP Nurse Practitioner Family; Visit Provider Internal Medicine Interventional Cardiology | DX: Z95.2 Presence of prosthetic heart valve (principal) ==

== ENCOUNTER → 2023-10-07 09:24 | Outpatient (BNVA) | payer MEDICARE, SELFPAY | PROVIDERS: PCP Nurse Practitioner Family; Referring Provider Nurse Practitioner Family; Visit Provider Internal Medicine Interventional Cardiology | DX: I21.4 Non-ST elevation (NSTEMI) myocardial infarction (principal); I50.30 Unspecified diastolic (congestive) heart failure; I48.0 Paroxysmal atrial fibrillation; I27.20 Pulmonary hypertension, unspecified; I10 Essential (primary) hypertension; Z98.890 Other specified postprocedural states | CPT/HCPCS: 99213 ==

== ENCOUNTER 2023-11-03 10:00 | Outpatient (RCR) | payer MEDICARE, SELFPAY ==
--- NOTE | 2023-10-20 10:15 | RT.EKG_ITS ---
APPROVED REPORT Exam: Resting ECG Reason for Exam: Baseline Patient Location: O HR:89 bpm ECG Measurements Heart Rate 89 AXIS NE 195 P 0 QRSd 176 QRS -57 QT 441 T 119 QTc 537 Conclusion Ventricular-paced complexes...other complexes also detected No further analysis attempted due to paced rhythm
== END 2023-11-06 23:59 | disposition home or self-care (01) ==
LOC: CR 10:00
PROVIDERS: PCP Nurse Practitioner Family; Visit Provider Internal Medicine Cardiovascular Disease
DX: I21.4 Non-ST elevation (NSTEMI) myocardial infarction (principal); Z51.89 Encounter for other specified aftercare
CPT/HCPCS: S9472

== ENCOUNTER → 2023-11-25 09:15 | Outpatient (BNVA) | payer MEDICARE, SELFPAY | PROVIDERS: PCP Nurse Practitioner Family; Visit Provider Internal Medicine Cardiovascular Disease | DX: I48.0 Paroxysmal atrial fibrillation (principal); I27.20 Pulmonary hypertension, unspecified; I50.32 Chronic diastolic (congestive) heart failure; Z95.0 Presence of cardiac pacemaker; Z95.818 Presence of other cardiac implants and grafts; I25.10 Atherosclerotic heart disease of native coronary artery without angina pectoris; I73.9 Peripheral vascular disease, unspecified; I10 Essential (primary) hypertension | CPT/HCPCS: 99214 ==

== ENCOUNTER 2023-12-03 11:26 | Outpatient (RCR) | payer MEDICARE, SELFPAY ==
--- NOTE | 2023-11-10 16:16 | NUR.NOTE ---
Pt noted to have HR decrease to 30's while exercising in CR. Notes he has increased fatigue and SOB when this occurs. Dr. Pandya notified. No further recommendations. Patient left ambulatory in no apparent distress. S/S to be emergently evaluated discussed with patient. Patient states understanding of these. Nursing Note:
== END 2023-12-07 23:59 | disposition home or self-care (01) ==
LOC: CR 11:26
PROVIDERS: PCP Nurse Practitioner Family; Visit Provider Internal Medicine Cardiovascular Disease
DX: Z51.89 Encounter for other specified aftercare; I25.110 Atherosclerotic heart disease of native coronary artery with unstable angina pectoris
CPT/HCPCS: S9472

== ENCOUNTER → 2023-12-17 03:19 | Outpatient (CLI) | payer MEDICARE, SELFPAY ==
--- NOTE | 2023-12-17 08:15 | DI.RAD_ITS ---
Exam(s) XR CHEST 2V PA LATERAL EXAM: XR CHEST 2V PA LATERAL CLINICAL HISTORY: Shortness of breath,CHF,I50.9 TECHNIQUE: 2D digital imaging was performed. Two views. COMPARISON: CR THORACIC SPINE from 02/13/[address] THORAX ABD/PEL CTA from 08/28/2023 CR,XR XR PORTABLE CHEST AP from 09/20/[address] CHEST PE CTA from 09/20/2023 FINDINGS: HEART: Enlarged. Status post CABG. Loop recorder device. Aorta: Not dilated. PULMONARY VASCULATURE: Normal. LUNGS: Increased interstitial markings, likely chronic fibrosis. No focal infiltrate. PLEURAL SPACE: No pleural effusion or pneumothorax. BONE:Unremarkable for age. Soft tissues: Unremarkable. IMPRESSION: Clearing of previously noted infiltrates. No acute abnormality. DATA REPOSITORY: RADIATION DOSE DELIVERED:
--- NOTE | 2023-12-17 14:30 | DI.US_ITS ---
APPROVED REPORT EXAM: Comprehensive 2D, Doppler, and color-flow Echocardiogram Patient Location: Out-Patient [employer] Mechanic: Jesusita Maldonado RDCS (AE) Indications: Mitral regurgitation, S/P Mitral valve annuloplasty clip, Pacemaker Other Information Study Quality: Adequate. Technically limited study due to body habitus. Conclusion Normal elft ventricular wall thickness and chamber size. EF is 50-55% Septal flattening and paradoxic motion consistent with RV pressure /volume overload. Right ventricle is moderately enlarged Left atrium is moderately dilated. Right atrium is severely dilated Sclerotic aortic valve with trace to mild regurgitation Prior mitraclip. There is mild eccentric mitral regurgitation Moderate to severe tricuspid regurgitation. Estimated right ventricular systolic pressure is 64 mmHg. There is an ASD/PFO with left to right flow Wall motion Left Ventricle The left ventricle is normal size. The overall left ventricular systolic function appears normal. The re is normal left ventricular wall thickness. Flattened septum consistent with right ventricular volu me and pressure overload. Paradoxical septal motion consistent with post-operative state. There is no ventricular septal defect visualized. LVEF is 52%. Right Ventricle Right ventricle is moderately dilated. Right ventricular systolic function is grossly normal. Atria Left atrium is moderately dilated. Right atrium is severely dilated. Doppler suggests left to right i nteratrial shunt. Atrial septal defect is present. Aortic Valve The Aortic valve is sclerotic. Aortic valve is trileaflet. There is no aortic valvular stenosis. Trac e to mild aortic regurgitation. Mitral Valve Mitral annuloplasty changes are present. MitraClip is present. Mild eccentric mitral regurgitation. Tricuspid Valve The tricuspid valve is normal in structure. There is no tricuspid valve stenosis. Moderate to severe tricuspid regurgitation. The RVSP is 64.1mmHg. Pulmonic Valve The pulmonary valve is normal in structure. There is no pulmonic valvular stenosis. Mild pulmonic re gurgitation. Great Vessels The aortic root is normal in size. The ascending aorta is normal in size. Aortic arch is not well vis ualized. The IVC collapses <50% with inspiration. Pericardium There is no pericardial effusion. 2D Dimensions IVSD d PLAX 1.06 cm M: 0.6-1.2 Ao Root d 3.41 cm M: 3.1 - 3.7 LVPW d PLAX 1.05 cm M: 0.6 - 1.2 Ao Asc Diam d 3.23 cm M: 2.6 - 3.4 LVID d PLAX 4.49 cm M: 4.2 - 5.8 LVDs 3.20 cm M: 2.5 - 4.0 LV EF Teichholz 55.3 % FS 28.63 % LV EDV (Teich) 91.9 mL LV ESV (Teich) 41.1 mL M-Mode TAPSE 1.76 cm (M/F) >1.7 Auto EF LV EDV A4C 109.0 mL LV EDV A2C 135.5 mL LV EDV BP 121.6 mL LV ESV A4C 53.6 mL LV ESV A2C 64.8 mL LV ESV BP 58.9 mL LVEF(%) A4C 50.9 % LVEF(%) A2C 52.2 % LVEF(%) BP 51.6 % LV SV A4C 55.4 ml LV SV A2C 70.7 ml LV SV BP 62.7 ml LV CO A4C 3.6 L/min LV CO A2C 6.0 L/min LV CO BP 4.8 L/min HR A4C 65.46 BPM HR A2C 84.70 BPM LV EDV Index (BP) RV Strain Global Peak Long. Strain A4C 11.09 Global Peak Long. Strain A4C FW 11.70 LA Volume LA Length A4C 6.4 cm LA Length A2C 6.8 cm LA Area A4C s 27.13 cm2 LA Area A2C s 30.26 cm2 LA Vol A4C A-L 96.94 mL LA Vol A2C A-L 114.79 mL LA Vol Biplane A-L 108.1 mL LA Vol/BSA A4C A-L LA Vol/BSA A2C A-L LA Vol/BSA BP A-L 57.2 mL/m2 LA Vol A4C MOD 90.2 mL LA Vol A2C MOD 106.0 mL LA Vol BP MOD 100.1 mL RA Volume RA Area A4C 21.6 cm2 RA ESV A4C (A-L) 60.7mL RA Vol/BSA A4C A-L RA Length A4C 6.5 cm RA ESV A4C (MOD) 56.6mL Aortic Valve AoV Vmax 1.65 m/s LVOT Vmax 1.03 m/s AoV Peak Grad 10.9 mmHg LVOT Peak Grad 4.2 mmHg AoV Area (Vmax) 1.98 cm2 LVOT VTI 0.205 m AoV VTI 0.332 m LVOT Mean Ivan. 0.73 m/s AoV Mean Ivan. 1.15 m/s LVOT Mean Grad 2.3 mmHg AoV Mean Grad 6.0 mmHg LVOT SV 65.19 mL AoV Area (VTI) 1.96 cm2 LVOT Diam s 2.00 cm Velocity Ratio 0.62 Mitral Valve MV Vmax TIPS 2.11 m/s MV Mean Grad 8.4 (<2mmHg) MV PHT 132 msec MV Area PHT 1.66 cm2 MV VTI 0.587 m Pulmonary Valve PV Vmax 0.87 (0.5-1.5 m/s) RVOT Vmax 0.55 m/s PV Peak Grad 3.1 mmHg RVOT Peak Gr. 1.2 mmHg PV Mean Ivan 0.66 m/s RVOT VTI 0.112 m PV Mean Grad 1.9 mmHg RVOT Mean Gr. 0.8 mmHg Tricuspid Valve RA Pressure 8.00 mmHg TR Vmax 3.39 m/s TV S' 0.10 m/s TR Peak Grad 56.0 mmHg RVSP (TR) 64.1 mmHg
== END ==
PROVIDERS: PCP Nurse Practitioner Family; Visit Provider Internal Medicine Cardiovascular Disease
DX: Z98.890 Other specified postprocedural states (principal); I50.9 Heart failure, unspecified
CPT/HCPCS: 93306; 71046

== ENCOUNTER → 2023-12-24 14:46 | Outpatient (BNVA) | payer MEDICARE, SELFPAY | PROVIDERS: PCP Nurse Practitioner Family; Referring Provider Nurse Practitioner Family; Visit Provider Physician Assistant | DX: Z95.0 Presence of cardiac pacemaker (principal); I48.0 Paroxysmal atrial fibrillation; R94.31 Abnormal electrocardiogram [ECG] [EKG]; I25.2 Old myocardial infarction | CPT/HCPCS: 93279 ==

== ENCOUNTER → 2023-12-30 09:04 | Outpatient (BNVA) | payer MEDICARE, SELFPAY | PROVIDERS: PCP Nurse Practitioner Family; Referring Provider Nurse Practitioner Family; Visit Provider Internal Medicine Cardiovascular Disease | DX: I27.20 Pulmonary hypertension, unspecified (principal); I50.32 Chronic diastolic (congestive) heart failure; Z98.890 Other specified postprocedural states; Z95.818 Presence of other cardiac implants and grafts; Z95.0 Presence of cardiac pacemaker; I25.10 Atherosclerotic heart disease of native coronary artery without angina pectoris | CPT/HCPCS: 99213 ==

== ENCOUNTER 2024-01-05 10:19 | Outpatient (RCR) | payer MEDICARE, SELFPAY ==
--- NOTE | 2023-12-24 10:15 | RT.EKG_ITS ---
APPROVED REPORT Exam: Resting ECG Reason for Exam: Rose jeff Patient Location: O HR:97 bpm ECG Measurements Heart Rate 97 AXIS SC [id number] P [id number] QRSd 146 QRS 84 QT 413 T -82 QTc 525 Conclusion Atrial fibrillation...V-rate 66-133, irreg A-activity LVH with secondary repolarization abnormality...multi-LVH criteria, abnrm ST-T Anterior infarct, old...Q >40mS, abnormal ST-T, V2-V5 Prolonged QT interval...QTc >500mS Baseline wander in lead(s) V1,V2
== END 2024-01-06 23:59 | disposition home or self-care (01) ==
LOC: CR 10:19
PROVIDERS: PCP Nurse Practitioner Family; Visit Provider Internal Medicine Cardiovascular Disease
DX: I25.110 Atherosclerotic heart disease of native coronary artery with unstable angina pectoris (principal); Z51.89 Encounter for other specified aftercare
CPT/HCPCS: S9472

== ENCOUNTER 2024-01-15 13:19 | Outpatient (REF) | payer MEDICARE, SELFPAY ==
[2024-01-20 14:32] LABS: Helicobacter pylori Ag, Feces Positive (Negative)
== END 2024-01-15 13:20 | disposition home or self-care (01) ==
LOC: NCHCN 13:19
PROVIDERS: PCP Nurse Practitioner Family; Visit Provider Nurse Practitioner Family
DX: K21.9 Gastro-esophageal reflux disease without esophagitis (principal)
CPT/HCPCS: 87338

== ENCOUNTER 2024-01-30 10:26 | Outpatient (RCR) | payer MEDICARE, SELFPAY | END 2024-02-06 23:59 | disposition home or self-care (01) | LOC: CR 10:26 | PROVIDERS: PCP Nurse Practitioner Family; Visit Provider Internal Medicine Cardiovascular Disease | DX: I25.10 Atherosclerotic heart disease of native coronary artery without angina pectoris (principal); I71.40 Abdominal aortic aneurysm, without rupture, unspecified; Z51.89 Encounter for other specified aftercare | CPT/HCPCS: S9472 ==

== ENCOUNTER 2024-02-04 10:41 | Emergency (ER) | payer MEDICARE, SELFPAY ==
[2024-02-04] VITALS (40 sets, daily range): BP systolic 134–176; BP diastolic 59–101; PULSE 78–131; RESP 12–27; TEMP 36.6; O2SAT 96–100
--- NOTE | 2024-02-04 10:30 | RT.EKG_ITS ---
APPROVED REPORT Exam: Resting ECG Reason for Exam: tachy/SOB Patient Location: E HR:102 bpm ECG Measurements Heart Rate 102 AXIS W[place] [id number] P [id number] QRSd 147 QRS 7 QT 391 T 105 QTc 510 Conclusion Atrial fibrillation...V-rate 88-115, irreg A-activity Left bundle branch block...QRSd>120, broad/notched R Probable anterolateral infarct, age indeterm...Q >35mS, T neg, V2-V6,I,aVL Physician: LBBB, negative for sgarbossa, no change for LBBB from prior
--- NOTE | 2024-02-04 10:45 | DI.RAD_ITS ---
Exam(s) XR CHEST 2V PA LATERAL EXAM: XR CHEST 2V PA LATERAL CLINICAL HISTORY: CP TECHNIQUE: 2D digital imaging was performed. Two views. COMPARISON: No exams were available for comparison FINDINGS: HEART: Enlarged. Status post CABG. Loop recorder device. Aorta: Not dilated. PULMONARY VASCULATURE: Normal. LUNGS: Cirrhotic changes. No infiltrate or pulmonary edema. PLEURAL SPACE: No pleural effusion or pneumothorax. BONE:Unremarkable for age. Soft tissues: Unremarkable. IMPRESSION: No acute abnormality. DATA REPOSITORY: RADIATION DOSE DELIVERED:
[2024-02-04] MEDS: Aspirin 81 MG CHEW 324 MG CH (10:58)
[2024-02-04 11:13] LABS: Abs Immature Grans 0.02 10^3/uL (0.0-0.06); Absolute Basophil Count 0.06 10^3/uL (0.0-0.2); Absolute Eosinophil Count 0.04 10^3/uL (0.0-0.7); Absolute Lymphocyte Count 0.79 10^3/uL (1.2-3.4); Absolute Monocyte Count 0.45 10^3/uL (0.1-0.8); Absolute Neutrophil Count 4.47 10^3/uL (1.2-6.7); Eosinophils % 0.7 %; HCT 37.3 % (40.0-50.0); HGB 11.5 g/dL (13.5-17.5); Immature Grans % 0.3 %; Lymphocytes % 13.6 %; MCH 25.2 pg (27.0-33.0); MCHC 30.8 % (32.0-36.0); MCV 82 fL (80-95); MPV 9.4 fL (8.0-11.0); Monocytes % 7.7 %; Neutrophils % 76.7 %; Platelet Count 264 10^3/uL (130-400); RBC 4.57 10^6/uL (4.36-5.78); RDW 16.1 % (11.8-14.1); RDW-SD 47.9 fL; WBC 5.83 10^3/uL (4.4-10.8)
--- NOTE | 2024-02-04 11:22 | NUR.NOTE ---
Nursing Note: Patient presented for CR today and complained of significant generalized fatigue, belching (which has been an ongoing issue that patient is working with PCP to manage) and SOB. Patient a/ox3 and able to speak in full sentences. VSS at time of arrival to CR. Patient placed on 3 lead monitor which showed afib, BBB, intermittent pacing, and occasional PVC's and couplets. Patient resting HR noted to be in the low to mid 100's and increased to 120's-mid 130's with any ambulation. Patient noted he was undecided on whether he should have presented to ED for evaluation or CR to have CR nurses assess him. Due to all above symptoms patient encouraged to be evaluated in ED. Patient agreeable to plan and was taken via wheelchair by CR RN. Report given to ABDIAS Grimaldo in ED.
--- NOTE | 2024-02-04 11:26 | W.ED.GENAD ---
Discharge Plan Disposition Patient Disposition: Home Condition: Stable Discharge Details Clinical Impression: Dyspnea on exertion, CHF (congestive heart failure), Hypomagnesemia Primary Care Provider: KIM NUNEZ ED Provider: Holley Champion Home Meds and New Rx's Prescriptions: Continued gabapentin 100 mg capsule 100 mg PO BID losartan 50 mg tablet 50 mg PO DAILY multivitamin Tablet 1 tab PO DAILY warfarin 3 mg tablet See Rx Instructions PO DAILY Patient Comments: takes 2.5 mg daily Rx Instructions: takes 2.5mg 4 times a week then 5 mg 3 times a wk. PO daily; pantoprazole 40 mg tablet,delayed release (DR/EC) 40 mg PO DAILY Qty: 90 3RF atorvastatin 40 mg tablet 40 mg PO DAILY Patient Comments: 10/07/23 per D/c summary [facility] [place] 09/24/23 acetaminophen [Tylenol] 325 MG tablet 325 - 650 mg PO PRN tamsulosin 0.4 MG capsule 0.4 mg PO DAILY torsemide 20 mg tablet 40 mg PO DAILY Qty: 240 4RF famotidine 20 mg tablet 20 mg PO BID lorazepam 1 MG tablet 1 mg PO PRN PRN aspirin 81 mg tablet,delayed release (DR/EC) 81 mg PO DAILY ferrous gluconate 324 mg (38 mg iron) tablet 324 mg PO DAILY Patient Comments: have not been able to start yet tetracycline 500 mg capsule metronidazole 250 mg tablet bismuth subsalicylate 262 mg tablet,chewable Patient Comments: CHEW AND SWALLOW 2 TABLETS BY MOUTH FOUR TIMES DAILY DIRECTED FOR 14 DAYS FOR HOURS-PYLORI Discharge Instructions Instructions: Hypomagnesemia (ED) Additional Instructions: Please keep your follow-up appointments with your primary care provider, cardiac rehab, and 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 I recommend that you take an additional tablet of your torsemide tonight and tomorrow. Your magnesium was very low today. I recommend that you take an begu-[id number]-[id number] magnesium supplement for the next week until you are rechecked by your primary care provider Return to emergency care if you develop new chest pains, shortness of breath, dizziness, episodes of passing out, or if you are very worried and need to be rechecked again immediately Referrals: KIM NUNEZ, FORMULA TECHNICIAN [Primary Care Provider] - Stephania Pandya MD [ [facility] STAFF PHYSICIAN] - [facility] General Date/Time Provider Initiated Documentation: 02/04/24 10:50. HPI Narrative: Sam is a 78-year-old male with history of ASCVD with CABG and multiple stent placement, HTN, pulmonary hypertension, pacemaker placement, a-fib on anticoagulation, and CHF who presents to the emergency department today for evaluation of increased belching and shortness of breath on exertion. He reports that last night he developed belching that has been frequent and making it difficult to sleep at night. He says that this happened last time he had a heart attack. He reports he has had increased shortness of breath with occasional lightheadedness while walking even short distances, says that he has been ongoing for a while but worsening recently. He does report some discomfort in his upper abdomen that he attributes to the burping. He denies recent fever/chills, headache, congestion, sore throat, cough, change in appetite, change in bowel or bladder function. He does have pedal edema that he says has been worsening recently as well. Related Data Home Medications Medication Instructions Recorded Confirmed lorazepam 1 mg tablet 1 mg PO PRN PRN 02/08/13 02/04/24 acetaminophen 325 mg tablet 325 - 650 mg PO PRN 06/26/15 02/04/24 (Tylenol) tamsulosin 0.4 mg capsule 0.4 mg PO DAILY 06/26/15 02/04/24 multivitamin 1 tab PO DAILY 01/10/20 02/04/24 warfarin 3 mg tablet See Rx Instructions PO DAILY 03/08/21 02/04/24 gabapentin 100 mg capsule 100 mg PO BID 05/24/21 02/04/24 losartan 50 mg tablet 50 mg PO DAILY 11/26/22 02/04/24 aspirin 81 mg tablet,delayed 81 mg PO DAILY 09/20/23 02/04/24 release ferrous gluconate 324 mg (38 mg 324 mg PO DAILY 09/20/23 02/04/24 iron) tablet atorvastatin 40 mg tablet 40 mg PO DAILY 10/07/23 02/04/24 torsemide 20 mg tablet 40 mg (2 x 20 mg) PO DAILY #240 11/17/23 02/04/24 tabs pantoprazole 40 mg tablet,delayed 40 mg PO DAILY #90 tabs 11/25/23 02/04/24 release famotidine 20 mg tablet 20 mg PO BID 12/25/23 02/04/24 bismuth subsalicylate 262 mg 02/04/24 chewable tablet metronidazole 250 mg tablet mg 02/04/24 tetracycline 500 mg capsule mg 02/04/24 Previous Rx's Medication Instructions Recorded torsemide 20 mg tablet 40 mg (2 x 20 mg) PO DAILY #240 11/17/23 tabs pantoprazole 40 mg tablet,delayed 40 mg PO DAILY #90 tabs 11/25/23 release Allergies Allergy/AdvReac Type Severity Reaction Status Date / Time chlorpheniramine Allergy Intermediate rash Verified 02/04/24 10:50 [From Tussionex] hydrocodone [From Tussionex] Allergy Mild rash Verified 02/04/24 10:50 oxycodone Allergy Other (See Verified 02/04/24 10:50 Comment) escitalopram oxalate AdvReac Severe suidial Verified 02/04/24 10:50 [From Lexapro] ideations tramadol AdvReac Mild Other (See Verified 02/04/24 10:50 Comment) General Stated Complaint: SOB LANA: 3 Review of Systems Narrative: see HPI Exam Const General: cooperative, healthy appearing, comfortable and no acute distress Nutritional Appearance: average body habitus HENMT Mouth: oral mucosae normal Resp Effort & Inspection: normal respiratory effort and able to speak in complete sentences Auscultation: crackles (scattered crackles bilaterally) and lung sounds not diminished Cardio Jugular venous pressure: no JVD Rate: tachycardic Rhythm: abnormal rhythm Pulses: radial pulses present GI Palpation: soft, not firm, not rigid and nontender Extrem General: edema Laterality: bilateral (nonpitting mild edema bilaterally) Course Vital Signs Vital signs: Vital Signs Temperature 36.6 C 02/04/24 10:46 Pulse 115 H 02/04/24 10:46 Respiratory Rate 24 02/04/24 10:46 Blood Pressure 168/101 H 02/04/24 10:46 Pulse Oximetry 99 02/04/24 10:46 Temperature 36.6 C 02/04/24 10:46 Temperature Source Oral 02/04/24 10:46 Pulse 111 H 02/04/24 11:16 Pulse 117 H 02/04/24 11:16 Respiratory Rate 24 02/04/24 11:16 Respiratory Effort Short of Breath 02/04/24 11:03 Respiratory Depth Normal 02/04/24 11:03 Respiratory Pattern Normal 02/04/24 11:03 Blood Pressure 168/92 H 02/04/24 11:16 Blood Pressure Mean 119 02/04/24 11:16 Blood Pressure Position Sitting 02/04/24 10:46 Pulse Oximetry 96 02/04/24 11:00 Oxygen Delivery Method Room Air 02/04/24 10:46 Oxygen Flow Rate 0 02/04/24 10:46 Pain Level 0 02/04/24 10:46 Lab/Test Results Lab/Test Results: Laboratory Tests Range/Units 02/04/24 10:56 WBC (4.4-10.8) 10^3/uL 5.83 RBC (4.36-5.78) 10^6/uL 4.57 Hgb (13.5-17.5) g/dL 11.5 L Hct (40.0-50.0) % 37.3 L MCV (80-95) fL 82 MCH (27.0-33.0) pg 25.2 L MCHC (32.0-36.0) % 30.8 L RDW (11.8-14.1) % 16.1 H Plt Count (130-400) 10^3/uL 264 MPV (8.0-11.0) fL 9.4 Immature Gran % % 0.3 Neutrophils % % 76.7 Lymphocytes % % 13.6 Monocytes % % 7.7 Eosinophils % % 0.7 Basophils % % 1.0 Nucleated RBC % (0.0-0.3) % 0.0 Absolute Neutrophils (1.2-6.7) 10^3/uL 4.47 Absolute Lymphocytes (1.2-3.4) 10^3/uL 0.79 L Absolute Monocytes (0.1-0.8) 10^3/uL 0.45 Absolute Eosinophils (0.0-0.7) 10^3/uL 0.04 Absolute Basophils (0.0-0.2) 10^3/uL 0.06 Medical Decision Making Sam is a 78-year-old male with history of ASCVD with CABG and multiple stent placement, HTN, pulmonary hypertension, pacemaker placement, a-fib on anticoagulation, and CHF who presents to the emergency department today for evaluation of increased belching and shortness of breath on exertion. He reports that last night he developed belching that has been frequent and making it difficult to sleep at night. He says that this happened last time he had a heart attack. He reports he has had increased shortness of breath with occasional lightheadedness while walking even short distances, says that he has been ongoing for a while but worsening recently. He does report some discomfort in his upper abdomen that he attributes to the burping. He denies recent fever/chills, headache, congestion, sore throat, cough, change in appetite, change in bowel or bladder function. He does have pedal edema that he says has been worsening recently as well. Physical exam remarkable for scattered crackles, easy work of breathing. Tachycardia noted, irregularly irregular rhythm. No murmurs noted. Abdomen soft, nondistended, nontender to palpation. Nonpitting edema noted bilaterally. Peripheral pulses strong. Moist mucous membranes. Patient is alert and oriented, no acute distress. DDx includes but is not limited to: ACS, CHF, cardiac arrhythmia, pneumonia, GERD, severe anemia I independently interpreted the following tests: Chest x-ray reassuring, cardiomegaly noted, no obvious infiltrates. This was confirmed by radiologist. EKG, A-fib with rate 102. Left bundle branch block unchanged from previous. CBC, CMP reassuring. K slightly low at 3.2 (unchanged from baseline). BNP slightly elevated 1125. Hypomagnesemia noted, mag 1.3. This was repeated, rpt mag 1.4. Initial and serial troponins reassuring, less than 50 x 2. While in the emergency department Sam received p.o. magnesium for supplementation. After resting in the emergency department he reports that his breathing feels fine, he feels good to go home. I did review cardiology note from 12/30/2023, it was noted at that time that he had exertional dyspnea particularly when in a blanco as well as sporadic belching but it was not continuous. Overall workup today very reassuring. Unclear etiology of dyspnea on exertion and belching, however possibly related to CHF. Recommend increasing dose of torsemide for the next 2 days. He does have very close PCP follow-up scheduled, has an appointment tomorrow to have his INR rechecked and follow-up appointment next reviewed discharge instructions with patient, including red flags indicate need for return to emergency care. Week. Imaging Data Radiologic Study: Radiologist's impression: Exam(s) XR CHEST 2V PA LATERAL EXAM: XR CHEST 2V PA LATERAL CLINICAL HISTORY: CP TECHNIQUE: 2D digital imaging was performed. Two views. COMPARISON: No exams were available for comparison FINDINGS: HEART: Enlarged. Status post CABG. Loop recorder device. Aorta: Not dilated. PULMONARY VASCULATURE: Normal. LUNGS: Cirrhotic changes. No infiltrate or pulmonary edema. PLEURAL SPACE: No pleural effusion or pneumothorax. BONE:Unremarkable for age. Soft tissues: Unremarkable. IMPRESSION: No acute abnormality. Quality:[facility] Health Related Social Needs: No Data to Display [facility] All Active Problems (Updated 02/04/24 @ 14:40 by Holley Matute) Hypomagnesemia (Acute) Dyspnea on exertion (Acute) Status post implantation of mitral valve leaflet clip (Acute) [facility] [place] 09/04/23 RH Pulmonary hypertension (Acute) severe by [facility] echo 10/30/23 RH Status post mitral valve annuloplasty (Acute) (HFpEF) heart failure with preserved ejection fraction (Acute) Acute non-ST elevation myocardial infarction (NSTEMI) (Acute) Acute on chronic HFrEF (heart failure with reduced ejection fraction) (Acute) Elevated troponin level (Acute) CHF (congestive heart failure) (Chronic) Melanoma (Acute) Skin lesion of cheek (Acute) Internal derangement of left knee (Acute) Left ventricular aneurysm (Acute) Hallux valgus (acquired), left foot (Acute) Hallux valgus (acquired), right foot (Acute) Hip pain, right (Acute) RLQ abdominal pain (Acute) Abnormal CT of the abdomen (Acute) Hiatal hernia with GERD (Acute) Diverticula of colon (Acute) pandiverticula - severe diverticula that carry all the way over to the cecum Recurrent right inguinal hernia (Acute) Adenomatous colon polyp (Acute) GERD (gastroesophageal reflux disease) (Chronic) Hx of hyperlipidemia (Acute) BPH loc w urin obs/LUTS (Acute) Arthritis of right hip (Acute 10/13/17) Atherosclerotic cardiovascular disease (Acute) Peripheral vascular disease (Chronic) 2013: [facility] [place]: Left iliofemoral endarterectomy with patch angioplasty, Left femoral->peroneal bypass. 11/24/13 [facility] [place]: Left external iliac artery stentgraft placed, ligation left leg bypass graft fistula. HTN (hypertension) (Chronic) Atrial fibrillation (Chronic) Medical History Pacemaker Micra Pacer 09/09/23 [facility] [place] RH Atypical nevus Anxiety Elevated hemoglobin A1c Abdominal pain Pelvic pain Enlarged prostate Adrenal nodule AAA (abdominal aortic aneurysm) 02/2021: 3.9cm AAA Osteoarthritis Surgical History History of right inguinal hernia repair (~06/26/21) History of esophagogastroduodenoscopy (EGD) (~06/05/21) History of colonoscopy with polypectomy (~06/05/21) History of open heart surgery Pt states placed 4 or 5 stents post heart attack - 2020 Hx of hernia repair x5 Hx of colonoscopy History of tonsillectomy and adenoidectomy History of surgery on extremity bilat lower extremity bypass/vascular Social History Smoking/Tobacco Use Status: Former Tobacco Use Quit Date: 09/08/95 Smoking risk assessment performed?: Yes Alcohol Intake: current Alcohol Intake frequency: holidays/special occasions only Alcohol type: wine Drug use: Never Substance use type: does not use Housing: house Current gender identity: male What type of physical activity do you participate in: additional Details: 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
[2024-02-04 11:56] LABS: ALT 27 U/L (16-63); AST 31 U/L (15-37); Albumin 4.2 g/dL (3.4-5.0); Alkaline Phosphatase 127 U/L (46-116); Anion Gap 14.3 mmol/L (3-11); BUN 12 mg/dL (7-18); Bilirubin, Total 1.5 mg/dL (0.2-1.0); CO2 24.7 mmol/L (21.0-32.0); CREATININE 1.2 mg/dL (0.70-1.30); Calcium 9.2 mg/dL (8.5-10.1); Chloride 100 mmol/L (98-107); Estimated GFR 62.29 (mL/min/1.73m2); Glucose 154 mg/dL (74-106); Magnesium 1.3 mg/dL (1.8-2.4); Potassium 3.2 mmol/L (3.5-5.1); Sodium 139 mmol/L (136-145); Total Protein 7.4 g/dL (6.4-8.2); Troponin I < 50 ng/L (< or =60)
[2024-02-04 12:03] LABS: NT-proBNP 1125 pg/mL (<300)
[2024-02-04] MEDS: Magnesium Gluconate 500 MG TAB PO (13:20)
[2024-02-04 14:10] LABS: Magnesium 1.4 mg/dL (1.8-2.4)
[2024-02-04 14:19] LABS: Troponin I < 50 ng/L (< or =60)
--- NOTE | 2024-02-05 08:20 | NUR.NOTE ---
Accessed pt chart to reconcile EKG orders with EKG?s in [facility]. Nursing Note:
== END 2024-02-04 14:50 | disposition home or self-care (01) ==
PROVIDERS: Emergency Provider Nurse Practitioner Family; PCP Nurse Practitioner Family
DX: R06.02 Shortness of breath (principal); E83.42 Hypomagnesemia; I50.9 Heart failure, unspecified; Z95.0 Presence of cardiac pacemaker; Z95.1 Presence of aortocoronary bypass graft; Z79.82 Long term (current) use of aspirin
CPT/HCPCS: 36415; 80053; 93005; 99283; 71046; 83735; 83880; 84484; 85025; 93010

== ENCOUNTER 2024-02-13 11:38 | Outpatient (RCR) | payer MEDICARE, SELFPAY | END 2024-03-07 23:59 | disposition home or self-care (01) | LOC: CR 11:38 | PROVIDERS: PCP Nurse Practitioner Family; Visit Provider Internal Medicine Cardiovascular Disease | DX: I21.4 Non-ST elevation (NSTEMI) myocardial infarction (principal) | CPT/HCPCS: S9472 ==

== ENCOUNTER 2024-02-26 11:32 | Outpatient (RCR) | payer SELFPAY ==
[2024-02-26 11:34] VITALS: BP 133/80; PULSE 92
== END 2024-03-07 23:59 | disposition home or self-care (01) ==
LOC: CR 11:32
PROVIDERS: PCP Nurse Practitioner Family; Visit Provider Internal Medicine Cardiovascular Disease
DX: Z00.00 Encounter for general adult medical examination without abnormal findings (principal)

== ENCOUNTER 2024-03-05 13:30 | Outpatient (REF) | payer MEDICARE, SELFPAY ==
[2024-03-09 13:19] LABS: Helicobacter pylori Ag, Feces Negative (Negative)
== END 2024-03-05 13:31 | disposition home or self-care (01) ==
LOC: NCHCN 13:30
PROVIDERS: PCP Nurse Practitioner Family; Visit Provider Nurse Practitioner Family
DX: B96.81 Helicobacter pylori [H. pylori] as the cause of diseases classified elsewhere (principal); R14.2 Eructation
CPT/HCPCS: 87338

== ENCOUNTER 2024-03-09 02:58 | Outpatient (CLI) | payer MEDICARE, SELFPAY ==
[2024-03-09 19:35] LABS: PSA, Diagnostic 0.7 ng/mL (<=6.5)
== END 2024-03-09 02:59 | disposition home or self-care (01) ==
PROVIDERS: PCP Nurse Practitioner Family; Visit Provider Urology
DX: N40.1 Benign prostatic hyperplasia with lower urinary tract symptoms (principal)
CPT/HCPCS: 36415; 84153

== ENCOUNTER 2024-03-09 11:28 | Outpatient (RCR) | payer SELFPAY ==
[2024-03-09 14:27] VITALS: BP 122/64; PULSE 93
== END 2024-04-07 23:59 | disposition home or self-care (01) ==
LOC: CR 11:28
PROVIDERS: PCP Nurse Practitioner Family; Visit Provider Internal Medicine Cardiovascular Disease
DX: R69 Illness, unspecified (principal)

== ENCOUNTER → 2024-03-16 14:29 | Outpatient (BNVA) | payer MEDICARE, SELFPAY | PROVIDERS: PCP Nurse Practitioner Family; Visit Provider Urology | DX: R10.2 Pelvic and perineal pain (principal); N40.1 Benign prostatic hyperplasia with lower urinary tract symptoms; N13.8 Other obstructive and reflux uropathy | CPT/HCPCS: 51798; 99213 ==

== ENCOUNTER 2024-03-30 10:28 | Emergency (ER) | payer MEDICARE, SELFPAY ==
[2024-03-30] VITALS (19 sets, daily range): BP systolic 132–156; BP diastolic 70–78; PULSE 82–103; RESP 9–21; TEMP 37; O2SAT 96–98
--- NOTE | 2024-03-30 10:30 | RT.EKG_ITS ---
APPROVED REPORT Exam: Resting ECG Reason for Exam: sob Patient Location: E HR:104 bpm ECG Measurements Heart Rate 104 AXIS LA [id number] P [id number] QRSd 138 QRS 75 QT 384 T [id number] QTc 505 Conclusion Atrial fibrillation 104 NO STEMI
--- NOTE | 2024-03-30 10:30 | DI.RAD_ITS ---
Exam(s) XR PORTABLE CHEST AP EXAM: XR PORTABLE CHEST AP CLINICAL HISTORY: chf TECHNIQUE: 2D digital imaging was performed of the chest. One image was obtained. An AP view was ob tained. COMPARISON: CR,XR XR PORTABLE CHEST AP from 09/20/2023 CR XR CHEST 2V PA LATERAL from 02/04/2024 FINDINGS: MEDIASTINUM: Normal. HEART: Cardiomegaly. Status post CABG. There is a loop recorder again seen. PULMONARY VASCULATURE: Normal. LUNGS: Clear. PLEURAL SPACE: No pleural effusion or pneumothorax. BONE:Within normal limits for the patient's age. OTHER FINDINGS:Normal. IMPRESSION: Cardiomegaly. No focal consolidating infiltrates or pleural effusions. DATA REPOSITORY: RADIATION DOSE DELIVERED:
[2024-03-30] MEDS: Furosemide 100 MG/10 ML VIAL 80 MG IVP (11:10)
[2024-03-30 11:12] LABS: Abs Immature Grans 0.03 10^3/uL (0.0-0.06); Absolute Basophil Count 0.05 10^3/uL (0.0-0.2); Absolute Eosinophil Count 0.06 10^3/uL (0.0-0.7); Absolute Lymphocyte Count 0.89 10^3/uL (1.2-3.4); Absolute Monocyte Count 0.48 10^3/uL (0.1-0.8); Absolute Neutrophil Count 5.82 10^3/uL (1.2-6.7); Basophils % 0.7 %; Eosinophils % 0.8 %; HCT 34.8 % (40.0-50.0); HGB 10.6 g/dL (13.5-17.5); Immature Grans % 0.4 %; Lymphocytes % 12.1 %; MCH 24.3 pg (27.0-33.0); MCHC 30.5 % (32.0-36.0); MCV 80 fL (80-95); MPV 9.6 fL (8.0-11.0); Monocytes % 6.5 %; Neutrophils % 79.5 %; Platelet Count 239 10^3/uL (130-400); RBC 4.37 10^6/uL (4.36-5.78); RDW-SD 52.4 fL; WBC 7.33 10^3/uL (4.4-10.8)
[2024-03-30 11:26] LABS: PTT Activated 33.4 sec (23.6-32.8); Prothrombin Time 23.6 sec (9.1-11.1)
[2024-03-30 11:27] LABS: INR 2.5 (0.9-1.1)
[2024-03-30 13:13] LABS: ALT 38 U/L (16-63); AST 38 U/L (15-37); Albumin 4.2 g/dL (3.4-5.0); Alkaline Phosphatase 226 U/L (46-116); Anion Gap 12.7 mmol/L (3-11); BUN 14 mg/dL (7-18); Bilirubin, Total 1.67 mg/dL (0.2-1.0); CO2 24.3 mmol/L (21.0-32.0); CREATININE 1.2 mg/dL (0.70-1.30); Calcium 9.6 mg/dL (8.5-10.1); Chloride 101 mmol/L (98-107); Estimated GFR 62.29 (mL/min/1.73m2); Glucose 137 mg/dL (74-106); Magnesium 1.8 mg/dL (1.8-2.4); Potassium 3.3 mmol/L (3.5-5.1); Sodium 138 mmol/L (136-145); Total Protein 7.5 g/dL (6.4-8.2); Troponin I 60 ng/L (< or =60)
[2024-03-30 13:32] LABS: NT-proBNP 1301 pg/mL (<300)
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
== END 2024-03-30 14:13 | disposition home or self-care (01) ==
PROVIDERS: Emergency Provider Emergency Medicine; PCP Nurse Practitioner Family
DX: I11.0 Hypertensive heart disease with heart failure (principal); I50.43 Acute on chronic combined systolic (congestive) and diastolic (congestive) heart failure; I27.20 Pulmonary hypertension, unspecified; I48.91 Unspecified atrial fibrillation; I25.10 Atherosclerotic heart disease of native coronary artery without angina pectoris; I25.2 Old myocardial infarction; Z95.0 Presence of cardiac pacemaker; Z95.1 Presence of aortocoronary bypass graft; Z79.01 Long term (current) use of anticoagulants; Z79.82 Long term (current) use of aspirin
CPT/HCPCS: 80053; 93005; 96374; 99285; 71045; 83735; 83880; 84484; 85025; 85610; 85730; 93010; 99284; J1940

== ENCOUNTER 2024-04-23 09:42 | Emergency (ER) | payer MEDICARE, SELFPAY ==
[2024-04-23] VITALS (43 sets, daily range): BP systolic 127–163; BP diastolic 67–103; PULSE 74–121; RESP 0–25; TEMP 36.8; O2SAT 95–100
--- NOTE | 2024-04-23 09:30 | RT.EKG_ITS ---
APPROVED REPORT Exam: Resting ECG Reason for Exam: Dyspnea Patient Location: E HR:103 bpm ECG Measurements Heart Rate 103 AXIS IA [id number] P [id number] QRSd 138 QRS 183 QT 372 T 82 QTc 488 Conclusion Atrial fibrillation, V-rate 84-120 PVC No STEMI No significant change when compared to priors
--- NOTE | 2024-04-23 10:14 | ED.GENADUL_ITS ---
Discharge Plan Disposition Patient Disposition: Home Condition: Stable Discharge Details Clinical Impression: Atrial fibrillation, GERD (gastroesophageal reflux disease), CHF (congestive heart failure), HTN (hypertension), Acute non-ST elevation myocardial infarction (NSTEMI), Pulmonary hypertension Primary Care Provider: KIM NUNEZ ED Provider: Liana Segal Home Meds and New Rx's Prescriptions: No Action gabapentin 100 mg capsule 100 mg PO BID multivitamin Tablet 1 tab PO DAILY magnesium 200 mg tablet 500 mg PO .every other day pantoprazole 40 mg tablet,delayed release (DR/EC) 40 mg PO DAILY Qty: 90 3RF acetaminophen [Tylenol] 325 MG tablet 325 - 650 mg PO PRN torsemide 20 mg tablet 40 mg PO DAILY Qty: 240 4RF famotidine 20 mg tablet 20 mg PO BID lorazepam 1 MG tablet 1 mg PO PRN PRN tetracycline 500 mg capsule bismuth subsalicylate 262 mg tablet,chewable Patient Comments: CHEW AND SWALLOW 2 TABLETS BY MOUTH FOUR TIMES DAILY DIRECTED FOR 14 DAYS FOR HOURS-PYLORI losartan 50 mg tablet 50 mg PO DAILY Qty: 30 0RF atorvastatin 40 mg tablet 40 mg PO DAILY Qty: 30 0RF aspirin 81 mg tablet,delayed release (DR/EC) 81 mg PO DAILY Qty: 30 0RF warfarin 3 mg tablet See Rx Instructions PO DAILY Qty: 90 0RF Patient Comments: takes 2.5 mg daily Rx Instructions: takes 2.5mg 4 times a week then 5 mg 3 times a wk. PO daily; tamsulosin 0.4 MG capsule 0.4 mg PO DAILY Qty: 30 0RF Discharge Instructions Instructions: Heart Failure ED Additional Instructions: You were seen in the emergency department today for evaluation of shortness of breath. In our department you have a full physical evaluation, and had laboratory studies that were largely reassuring. You are likely experiencing an increase of fluid and we gave you a dose of your diuretic medication here in the emergency department. At this time, you are desiring to trial outpatient management with your home medications and I think that this is reasonable. You should call your provider as soon as possible to discuss changes to your torsemide dosing as well as neck steps for reevaluation. Please return to the emergency department if you develop changes in your symptoms such as worsening shortness of breath, chest pain, change in responsiveness, or any other symptoms that cause you concern. Thank you for allowing us to be part of your care. HPI General Date/Time Provider Initiated Documentation: 04/23/24 09:54 . Limitations to Documentation: no limitations . Information obtained by: patient and family . HPI Narrative: MDM: And in brief, this is a 78-year-old male patient with a past history of heart failure, pulmonary hypertension, mitral valve replacement, NSTEMI, atrial fibrillation on warfarin, who is presenting for evaluation of shortness of breath. My differential includes but is not limited to heart failure exacerbation with fluid overload/pulmonary edema, I certainly considered ACS, pleural effusion, arrhythmia, metabolic and electrolyte derangement, kidney injury, liver disease. The patient has no fever to suggest infectious pathology such as pneumonia or URI, no wheezing to suggest reactive airway disease exacerbation, and his anticoagulated status and lack of pleuritic chest pain make pulmonary embolism less likely. Reassuringly, the patient is oxygenating well, though he is mildly hypertensive and intermittently tachycardic. We will obtain an EKG, chest x-ray, and laboratory studies to include CBC, CMP, troponin, BNP, INR ED Course: I reviewed the patient's laboratory studies, which shows a stable anemia of 9.9, no leukocytosis or thrombocytopenia. Chemistry panel is without significant electrolyte derangement, new kidney dysfunction or evidence of severe liver disease. The patient's BNP is slightly elevated to 1000, though decreased from his most recent value of 1300. His INR is therapeutic at 2.6. Independently interpreted the patient's x-ray which does show evidence of pulmon matt vascular congestion. The patient on reassessment continues to be without shortness of breath or hypoxia, and we provided him with a dose of Lasix here in the emergency department for diuresis given his history and weight gain. The patient put out an appropriate amount of urine and reports feeling slightly improved. We had a shared decision-making conversation regarding disposition and at this time the patient is desiring of discharge to home. He will continue his home torsemide and reach out to his primary care provider to discuss changes in medication dosing and reevaluation. He is understanding of the return precautions which include worsening shortness of breath, change in responsiveness, and chest pain. At this time, the patient has had a full medical evaluation and is safe for discharge to home. They are hemodynamically stable, ambulatory, and tolerating PO. They are understanding of the follow-up plan and return precautions. They left our facility without incident. Liana Segal MD HPI: This is a 78-year-old male patient with a past medical history significant for heart failure, pulmonary hypertension, mitral valve replacement, NSTEMI, atrial fibrillation on warfarin who is presenting for evaluation of shortness of breath. The patient reports that he has had several months of belching, which is being worked up by his outpatient providers. He reports that he went to go to sleep in his bed last night, typically sleeps in a recliner, and while he did not notice any significant shortness of breath he did feel like his breathing was deep, and when he woke up this morning he weighed himself and noted that he had had a 10 pound weight Cleen from weight taken 2 days ago. He reports that he has been taking his torsemide as prescribed, has been making urine normally, and has not had other changes in his medications. He has noted worsening of his peripheral edema, and was instructed by his outpatient care providers to seek care in the emergency department for evaluation. The patient reports that he is not currently experiencing shortness of breath, has not had productive cough, chest pain, and does not wear oxygen at home. Exam: Gen: Awake and alert, in no apparent distress HEENT: Non-icteric sclera Neck: Supple Lungs: No apparent respiratory distress, normal respiratory effort. Lung sounds clear and equal bilaterally, not hypoxic or tachypneic CV: Appears well perfused, heart with irregularly irregular rate and rhythm, strong distal pulses Abdomen: Non-distended, soft, nontender. MSK: Moves 4 extremities without apparent limitation in ROM. 2+ pedal edema to the proximal dsouza Skin: Visualized skin without rashes, cyanosis. Neuro: Normal Gait, no obvious focal deficits or facial asymmetry. Speaks in full, clear sentences. Psych: Appropriate for situation. Related Data Home Medications ?Medication ?Instructions ?Recorded ?Confirmed lorazepam 1 mg tablet 1 mg PO PRN PRN 02/08/13 03/30/24 acetaminophen 325 mg tablet 325 - 650 mg PO PRN 06/26/15 03/30/24 (Tylenol) multivitamin 1 tab PO DAILY 01/10/20 03/30/24 gabapentin 100 mg capsule 100 mg PO BID 05/24/21 03/30/24 torsemide 20 mg tablet 40 mg (2 x 20 mg) PO DAILY #240 11/17/23 03/30/24 tabs pantoprazole 40 mg tablet,delayed 40 mg PO DAILY #90 tabs 11/25/23 03/30/24 release famotidine 20 mg tablet 20 mg PO BID 12/25/23 03/30/24 bismuth subsalicylate 262 mg 02/04/24 03/30/24 chewable tablet tetracycline 500 mg capsule mg 02/04/24 03/30/24 magnesium 200 mg tablet 500 mg PO .every other day 03/16/24 03/30/24 aspirin 81 mg tablet,delayed 81 mg PO DAILY #30 tabs 03/30/24 release atorvastatin 40 mg tablet 40 mg PO DAILY #30 tabs 03/30/24 losartan 50 mg tablet 50 mg PO DAILY #30 tabs 03/30/24 tamsulosin 0.4 mg capsule 0.4 mg PO DAILY #30 tab-caps 03/30/24 warfarin 3 mg tablet See Rx Instructions PO DAILY #90 03/30/24 03/30/24 tabs Previous Rx's ?Medication ?Instructions ?Recorded torsemide 20 mg tablet 40 mg (2 x 20 mg) PO DAILY #240 11/17/23 tabs pantoprazole 40 mg tablet,delayed 40 mg PO DAILY #90 tabs 11/25/23 release aspirin 81 mg tablet,delayed 81 mg PO DAILY #30 tabs 03/30/24 release atorvastatin 40 mg tablet 40 mg PO DAILY #30 tabs 03/30/24 losartan 50 mg tablet 50 mg PO DAILY #30 tabs 03/30/24 tamsulosin 0.4 mg capsule 0.4 mg PO DAILY #30 tab-caps 03/30/24 warfarin 3 mg tablet See Rx Instructions PO DAILY #90 03/30/24 tabs Allergies Allergy/AdvReac Type Severity Reaction Status Date / Time chlorpheniramine (From Allergy Intermediate rash Verified 03/30/24 10:19 Tussionex) hydrocodone (From Tussionex) Allergy Mild rash Verified 03/30/24 10:19 oxycodone Allergy Other (See Verified 03/30/24 10:19 Comment) escitalopram oxalate (From AdvReac Severe suidial Verified 03/30/24 10:19 Lexapro) ideations tramadol AdvReac Mild Other (See Verified 03/30/24 10:19 Comment) General Stated Complaint: SOB LANA: 2 Course Vital Signs Vital signs: Vital Signs Temperature 36.8 C 04/23/24 09:46 Pulse 120 H 04/23/24 09:46 Respiratory Rate 22 04/23/24 09:46 Blood Pressure 156/74 H 04/23/24 09:46 Pulse Oximetry 96 04/23/24 09:46 Temperature 36.8 C 04/23/24 09:46 Temperature Source Temporal Artery Scan 04/23/24 09:46 Pulse 120 H 04/23/24 09:46 Respiratory Rate 22 04/23/24 09:46 Blood Pressure 156/74 H 04/23/24 09:46 Pulse Oximetry 96 04/23/24 09:46 Medical Decision Making Quality:SDOH Health Related Social Needs: No Data to Display PFSH All Active Problems (Updated 04/23/24 @ 13:31 by Liana Segal MD) Flood, sequela (Acute) Status post implantation of mitral valve leaflet clip (Acute) [facility] [place] [facility] Pulmonary hypertension (Acute) severe by [facility] [place] echo 10/30/23 RH Status post mitral valve annuloplasty (Acute) (HFpEF) heart failure with preserved ejection fraction (Acute) Acute non-ST elevation myocardial infarction (NSTEMI) (Acute) Acute on chronic HFrEF (heart failure with reduced ejection fraction) (Acute) Elevated troponin level (Acute) CHF (congestive heart failure) (Chronic) Melanoma (Acute) Skin lesion of cheek (Acute) Internal derangement of left knee (Acute) Left ventricular aneurysm (Acute) Hallux valgus (acquired), left foot (Acute) Hallux valgus (acquired), right foot (Acute) Hip pain, right (Acute) RLQ abdominal pain (Acute) Abnormal CT of the abdomen (Acute) Hiatal hernia with GERD (Acute) Diverticula of colon (Acute) pandiverticula - severe diverticula that carry all the way over to the cecum Recurrent right inguinal hernia (Acute) Adenomatous colon polyp (Acute) GERD (gastroesophageal reflux disease) (Chronic) Hx of hyperlipidemia (Acute) BPH loc w urin obs/LUTS (Acute) Arthritis of right hip (Acute 10/13/17) Atherosclerotic cardiovascular disease (Acute) Peripheral vascular disease (Chronic) 2013: [facility] [place] iliofemoral endarterectomy with patch angioplasty, Left femoral->peroneal bypass. 11/24/13 [facility] [place]: Left external iliac artery stentgraft placed, ligation left leg bypass graft fistula. HTN (hypertension) (Chronic) Atrial fibrillation (Chronic) Medical History Pacemaker Micra Pacer 09/09/23 [facility] [place] Atypical nevus Anxiety Elevated hemoglobin A1c Abdominal pain Pelvic pain Enlarged prostate Adrenal nodule AAA (abdominal aortic aneurysm) 02/2021: 3.9cm AAA Osteoarthritis Surgical History History of right inguinal hernia repair (~06/26/21) History of esophagogastroduodenoscopy (EGD) (~06/05/21) History of colonoscopy with polypectomy (~06/05/21) History of open heart surgery Pt states placed 4 or 5 stents post heart attack - 2020 Hx of hernia repair x5 Hx of colonoscopy History of tonsillectomy and adenoidectomy History of surgery on extremity bilat lower extremity bypass/vascular Social History Smoking/Tobacco Use Status: Former Tobacco Use Quit Date: 09/08/95 Smoking risk assessment performed?: Yes Alcohol Intake: current Alcohol Intake frequency: holidays/special occasions only Alcohol type: wine Drug use: Never Substance use type: does not use Housing: house Current gender identity: male What type of physical activity do you participate in: additional Details: 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
--- NOTE | 2024-04-23 10:21 | DI.RAD_ITS ---
Exam(s) XR PORTABLE CHEST AP EXAM: XR PORTABLE CHEST AP CLINICAL HISTORY: SOB TECHNIQUE: 2D digital imaging was performed of the chest. One image was obtained. An AP view was ob tained. COMPARISON: CR XR PORTABLE CHEST AP from 03/30/2024 FINDINGS: MEDIASTINUM: Normal. HEART: Cardiomegaly. Status post CABG. PULMONARY VASCULATURE: There is pulmonary venous congestion. LUNGS: Mild prominence of the interstitium bilaterally likely reflecting edema. No focal consolidati ng infiltrates are seen. PLEURAL SPACE: No pleural effusion or pneumothorax. BONE:Within normal limits for the patient's age. OTHER FINDINGS:Normal. IMPRESSION: Cardiomegaly and pulmonary venous congestion. DATA REPOSITORY: RADIATION DOSE DELIVERED:
[2024-04-23 10:50] LABS: Abs Immature Grans 0.02 10^3/uL (0.0-0.06); Absolute Basophil Count 0.05 10^3/uL (0.0-0.2); Absolute Lymphocyte Count 0.68 10^3/uL (1.2-3.4); Absolute Neutrophil Count 4.67 10^3/uL (1.2-6.7); Basophils % 0.9 %; Eosinophils % 1.7 %; HCT 32.5 % (40.0-50.0); HGB 9.9 g/dL (13.5-17.5); Immature Grans % 0.3 %; Lymphocytes % 11.7 %; MCH 24.4 pg (27.0-33.0); MCHC 30.5 % (32.0-36.0); MCV 80 fL (80-95); MPV 10.4 fL (8.0-11.0); Monocytes % 5.2 %; Neutrophils % 80.2 %; Platelet Count 192 10^3/uL (130-400); RBC 4.05 10^6/uL (4.36-5.78); RDW 18.4 % (11.8-14.1); RDW-SD 52.7 fL; WBC 5.82 10^3/uL (4.4-10.8)
[2024-04-23 11:01] LABS: INR 2.6 (0.9-1.1)
[2024-04-23 11:19] LABS: ALT 26 U/L (16-63); AST 33 U/L (15-37); Albumin 3.7 g/dL (3.4-5.0); Alkaline Phosphatase 231 U/L (46-116); Anion Gap 13.1 mmol/L (3-11); BUN 14 mg/dL (7-18); CO2 20.9 mmol/L (21.0-32.0); Calcium 9.6 mg/dL (8.5-10.1); Chloride 105 mmol/L (98-107); Estimated GFR 77.52 (mL/min/1.73m2); Glucose 126 mg/dL (74-106); Magnesium 1.7 mg/dL (1.8-2.4); NT-proBNP 1069 pg/mL (<300); Potassium 4.5 mmol/L (3.5-5.1); Sodium 139 mmol/L (136-145); Total Protein 6.7 g/dL (6.4-8.2); Troponin I < 50 ng/L (< or =60)
[2024-04-23] MEDS: Furosemide 100 MG/10 ML VIAL 80 MG IVP (11:43)
[2024-04-23 14:13] LABS: Troponin I < 50 ng/L (< or =60)
--- NOTE | 2024-04-25 09:06 | NUR.NOTE ---
Nursing Note: Received call from patient reporting that he has gained 3lbs since yesterday and feeling more short of breath. 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 Pt was told that if his symptoms of CHF are returning and feels like he's getting worse that he should return to the Emergency Department for a re-evaluation. Pt verbalized understanding.
== END 2024-04-23 14:31 | disposition home or self-care (01) ==
PROVIDERS: Emergency Provider Emergency Medicine; PCP Nurse Practitioner Family
DX: R06.02 Shortness of breath (principal); I48.91 Unspecified atrial fibrillation; K21.9 Gastro-esophageal reflux disease without esophagitis; I11.0 Hypertensive heart disease with heart failure; I50.9 Heart failure, unspecified; I25.2 Old myocardial infarction; I27.20 Pulmonary hypertension, unspecified; Z79.01 Long term (current) use of anticoagulants; D64.9 Anemia, unspecified; Z79.899 Other long term (current) drug therapy; Z79.82 Long term (current) use of aspirin
CPT/HCPCS: 36415; 80053; 93005; 96374; 99285; 71045; 83735; 83880; 84484; 85025; 85610; 93010; 99284; J1940

== ENCOUNTER 2024-05-17 09:33 | Emergency (ER) | payer MEDICARE, SELFPAY ==
[2024-05-17] VITALS (15 sets, daily range): BP systolic 137–160; BP diastolic 68–94; PULSE 79–123; RESP 12–25; TEMP 36.4; O2SAT 96–99
--- NOTE | 2024-05-17 09:30 | DI.RAD_ITS ---
Exam(s) XR CHEST 2V PA LATERAL EXAM: XR CHEST 2V PA LATERAL CLINICAL HISTORY: Eval pulm edema TECHNIQUE: 2D digital imaging was performed. Two views. COMPARISON: CR XR PORTABLE CHEST AP from 04/23/2024 FINDINGS: HEART: Enlarged. Aorta: Not dilated. PULMONARY VASCULATURE: Normal. MEDIASTINUM: Status post CABG. LUNGS: Mild fibrotic changes, otherwise clear. PLEURAL SPACE: No pleural effusion or pneumothorax. BONE:Unremarkable for age. SOFT TISSUES: Unremarkable. IMPRESSION: No acute abnormality. DATA REPOSITORY: RADIATION DOSE DELIVERED:
--- NOTE | 2024-05-17 09:30 | RT.EKG_ITS ---
APPROVED REPORT Exam: Resting ECG Reason for Exam: sob Patient Location: E HR:95 bpm ECG Measurements Heart Rate 95 AXIS RI [id number] P [id number] QRSd 139 QRS 108 QT 401 T 16 QTc 504 Conclusion Atrial fibrillation, rate 95 Intraventricular conduction abnormality, unchanged from priors. PVCs No STEMI
--- NOTE | 2024-05-17 09:52 | ED.GENADUL_ITS ---
Discharge Plan Disposition Patient Disposition: Home Condition: Stable Discharge Details Clinical Impression: Acute on chronic HFrEF (heart failure with reduced ejection fraction), Atrial fibrillation, Atherosclerotic cardiovascular disease, GERD (gastroesophageal reflux disease), HTN (hypertension), Pulmonary hypertension, Status post implantation of mitral valve leaflet clip Primary Care Provider: KIM NUNEZ ED Provider: Liana Segal Home Meds and New Rx's Prescriptions: No Action gabapentin 100 mg capsule 100 mg PO BID multivitamin Tablet 1 tab PO DAILY magnesium 200 mg tablet 500 mg PO .every other day pantoprazole 40 mg tablet,delayed release (DR/EC) 40 mg PO DAILY Qty: 90 3RF acetaminophen [Tylenol] 325 MG tablet 325 - 650 mg PO PRN torsemide 20 mg tablet 40 mg PO DAILY Qty: 240 4RF famotidine 20 mg tablet 20 mg PO BID lorazepam 1 MG tablet 1 mg PO PRN PRN tetracycline 500 mg capsule 500 mg PO DAILY bismuth subsalicylate 262 mg tablet,chewable 1 tab PO QID Patient Comments: CHEW AND SWALLOW 2 TABLETS BY MOUTH FOUR TIMES DAILY DIRECTED FOR 14 DAYS FOR HOURS-PYLORI losartan 50 mg tablet 50 mg PO DAILY Qty: 30 0RF atorvastatin 40 mg tablet 40 mg PO DAILY Qty: 30 0RF aspirin 81 mg tablet,delayed release (DR/EC) 81 mg PO DAILY Qty: 30 0RF warfarin 3 mg tablet See Rx Instructions PO DAILY Qty: 90 0RF Patient Comments: takes 2.5 mg daily Rx Instructions: takes 2.5mg 4 times a week then 5 mg 3 times a wk. PO daily; tamsulosin 0.4 MG capsule 0.4 mg PO DAILY Qty: 30 0RF Discharge Instructions Instructions: Heart Failure, Adult (DC) Additional Instructions: You were seen in the emergency department today for evaluation of weight gain and shortness of breath, likely due to your heart failure. In our department you received an extra dose of your diuretic medications, with good improvement in your symptoms. You should continue to take your torsemide, 40 mg, every day, and if you notice that your weight has increased by more than 4 pounds you should take an extra 20 mg as well as your potassium supplementation. You need to follow-up with your primary care provider for reassessment, especially if your symptoms change, worsen, or persist. You had no sign of damage to your heart, no sign of pneumonia or other abnormalities that would require you to stay in the hospital today, but you can certainly return to the emergency department with any concerns. Thank you for allowing us to be part of your care. HPI General Mode of arrival: ambulatory . Date/Time Provider Initiated Documentation: 05/17/24 09:41 . Limitations to Documentation: no limitations . Information obtained by: patient, family and old records reviewed . HPI Narrative: MDM: This is a 78-year-old male patient with a past medical history significant for mitral valve replacement, pulmonary hypertension, HFrEF, NSTEMI, pacemaker placement, atrial fibrillation, hypertension, and GERD who is presenting for evaluation of unintentional weight gain, peripheral edema, shortness of breath. My differential includes but is not limited to heart failure exacerbation with pulmonary edema, pleural effusion, certainly considered ACS including STEMI, NSTEMI, unstable angina. Considered metabolic and electrolyte derangements, kidney injury, liver dysfunction. I considered pneumonia, pneumothorax, no wheezing to suggest reactive airway disease exacerbation. The patient is anticoagulated and does not have any pleuritic chest pain, DVT symptoms, or other concerning evidence to suggest thromboembolic disease such as pulmonary embolism. I will obtain laboratory studies to include CBC, CMP, troponin, BNP, and INR. I will obtain a chest x-ray, and provide the patient with a dose of Lasix, 80 mg which is his equivalent home dose, for fluid overload/diuresis. ED Course: I reviewed the patient's laboratory studies, which show stable anemia of 11.6, no thrombocytopenia or leukocytosis. INR is therapeutic at 2.4. Chemistry panel without significant electrolyte abnormalities, kidney function at patient baseline, alkaline phosphatase is slightly elevated to 326, which has been gradually uptrending over the last several months. No other evidence of liver dysfunction, BNP is 990 today, which has been gradually downtrending over time. Troponin was obtained, 53 and without a significant delta change on 2- hour rechecks. With his lack of chest pain and his nonischemic EKG, per our high-sensitivity troponin protocol we do not need to pursue further laboratory evaluation or workup. The patient urinated adequately after the above-noted dose of Lasix and endorsed a significant improvement in his work of breathing. He never developed an oxygen requirement, his tachycardia resolved, and he is desiring of discharge to home. I recommended that he continue the strategy that his primary care provider detailed, which includes 40 mg daily torsemide, 20 mg additional if he has greater than 4 pounds of weight gain or shortness of breath. He understands this plan and will supplement his potassium if he takes extra torsemide. At this time, the patient has had a full medical evaluation and is safe for discharge to home. They are hemodynamically stable, ambulatory, and tolerating PO. They are understanding of the follow-up plan and return precautions. They left our facility without incident. Liana Segal MD HPI: This is a 78-year-old male patient with a past medical history significant for mitral valve replacement, pulmonary hypertension, HFrEF, NSTEMI, pacemaker placement, atrial fibrillation, hypertension, and GERD who is presenting for evaluation of unintentional weight gain, peripheral edema, and shortness of breath. The patient reports that he was in his normal state of health until last night, when he noticed that he was belching more than typical, and noticed that he had gained 5 pounds over the last 24 hours of worsening of his periph eral edema. The patient reports that he had an evaluation at his outpatient providers office, at which time they requested that he maintain his 40 mg daily of torsemide, but take an extra 20 if he notices weight gain or shortness of breath. He reports that he has trialed this, did not take extra today, and has not noted any improvement in his symptoms with this intervention. The patient reports that he is not experiencing chest pain, though he did several days ago noted twinge in the area of his pacemaker pocket that has since resolved. Reports no cough, hemoptysis, nausea or vomiting, abdominal pain. Is producing urine typically for him, with no hematuria or dysuria. No other changes to his medications reported, has been taking his Coumadin and all other medications without change. Exam: Gen: Awake and alert, in no apparent distress HEENT: Non-icteric sclera Neck: Supple Lungs: No apparent respiratory distress, normal respiratory effort. The patient has right greater than left bibasilar crackles, scattered, with no rhonchi, rales, or wheezing CV: Appears well perfused, heart with tachycardic rate, irregular rhythm, strong and symmetrical distal pulses. No chest wall tenderness to palpation Abdomen: Non-distended, soft, nontender MSK: Moves 4 extremities without apparent limitation in ROM. The patient has 2+ peripheral edema with symmetrical redness of the skin but no induration, warmth, or fluctuance. Skin: Visualized skin without rashes, cyanosis. Neuro: Normal Gait, no obvious focal deficits or facial asymmetry. Speaks in full, clear sentences. Psych: Appropriate for situation. Related Data Home Medications ?Medication ?Instructions ?Recorded ?Confirmed lorazepam 1 mg tablet 1 mg PO PRN PRN 02/08/13 05/17/24 acetaminophen 325 mg tablet 325 - 650 mg PO PRN 06/26/15 05/17/24 (Tylenol) multivitamin 1 tab PO DAILY 01/10/20 05/17/24 gabapentin 100 mg capsule 100 mg PO BID 05/24/21 05/17/24 torsemide 20 mg tablet 40 mg (2 x 20 mg) PO DAILY #240 11/17/23 05/17/24 tabs pantoprazole 40 mg tablet,delayed 40 mg PO DAILY #90 tabs 11/25/23 05/17/24 release famotidine 20 mg tablet 20 mg PO BID 12/25/23 05/17/24 bismuth subsalicylate 262 mg 1 tab PO QID 02/04/24 05/17/24 chewable tablet tetracycline 500 mg capsule 500 mg PO DAILY 02/04/24 05/17/24 magnesium 200 mg tablet 500 mg PO .every other day 03/16/24 05/17/24 aspirin 81 mg tablet,delayed 81 mg PO DAILY #30 tabs 03/30/24 05/17/24 release atorvastatin 40 mg tablet 40 mg PO DAILY #30 tabs 03/30/24 05/17/24 losartan 50 mg tablet 50 mg PO DAILY #30 tabs 03/30/24 05/17/24 tamsulosin 0.4 mg capsule 0.4 mg PO DAILY #30 tab-caps 03/30/24 05/17/24 warfarin 3 mg tablet See Rx Instructions PO DAILY #90 03/30/24 05/17/24 tabs Previous Rx's ?Medication ?Instructions ?Recorded torsemide 20 mg tablet 40 mg (2 x 20 mg) PO DAILY #240 11/17/23 tabs pantoprazole 40 mg tablet,delayed 40 mg PO DAILY #90 tabs 11/25/23 release aspirin 81 mg tablet,delayed 81 mg PO DAILY #30 tabs 03/30/24 release atorvastatin 40 mg tablet 40 mg PO DAILY #30 tabs 03/30/24 losartan 50 mg tablet 50 mg PO DAILY #30 tabs 03/30/24 tamsulosin 0.4 mg capsule 0.4 mg PO DAILY #30 tab-caps 03/30/24 warfarin 3 mg tablet See Rx Instructions PO DAILY #90 03/30/24 tabs Allergies Allergy/AdvReac Type Severity Reaction Status Date / Time chlorpheniramine (From Allergy Intermediate rash Verified 05/17/24 09:46 Tussionex) hydrocodone (From Tussionex) Allergy Mild rash Verified 05/17/24 09:46 oxycodone Allergy Other (See Verified 05/17/24 09:46 Comment) escitalopram oxalate (From AdvReac Severe suidial Verified 05/17/24 09:46 Lexapro) ideations tramadol AdvReac Mild Other (See Verified 05/17/24 09:46 Comment) General Stated Complaint: RespSymp LANA: 3 Course Vital Signs Vital signs: Vital Signs Temperature 36.4 C 05/17/24 09:41 Pulse 108 H 05/17/24 09:41 Respiratory Rate 22 05/17/24 09:41 Blood Pressure 160/94 H 05/17/24 09:41 Pulse Oximetry 99 05/17/24 09:41 Temperature 36.4 C 05/17/24 09:44 Temperature Source Oral 05/17/24 09:44 Pulse 108 H 05/17/24 09:44 Respiratory Rate 22 05/17/24 09:44 Respiratory Effort Short of Breath 05/17/24 09:45 Blood Pressure 160/94 H 05/17/24 09:44 Blood Pressure Position Sitting 05/17/24 09:44 Pulse Oximetry 99 05/17/24 09:44 Oxygen Delivery Method Room Air 05/17/24 09:44 Oxygen Flow Rate 0 05/17/24 09:44 Medical Decision Making Quality:SDOH Health Related Social Needs: No Data to Display PFSH All Active Problems (Updated 05/17/24 @ 12:08 by Liana Segal MD) Status post implantation of mitral valve leaflet clip (Acute) [facility] [place]/04/23 RH Pulmonary hypertension (Acute) severe by [facility] [place] echo 10/30/23 RH Status post mitral valve annuloplasty (Acute) (HFpEF) heart failure with preserved ejection fraction (Acute) Acute non-ST elevation myocardial infarction (NSTEMI) (Acute) Acute on chronic HFrEF (heart failure with reduced ejection fraction) (Acute) Elevated troponin level (Acute) CHF (congestive heart failure) (Chronic) Melanoma (Acute) Skin lesion of cheek (Acute) Internal derangement of left knee (Acute) Left ventricular aneurysm (Acute) Hallux valgus (acquired), left foot (Acute) Hallux valgus (acquired), right foot (Acute) Hip pain, right (Acute) RLQ abdominal pain (Acute) Abnormal CT of the abdomen (Acute) Hiatal hernia with GERD (Acute) Diverticula of colon (Acute) pandiverticula - severe diverticula that carry all the way over to the cecum Recurrent right inguinal hernia (Acute) Adenomatous colon polyp (Acute) GERD (gastroesophageal reflux disease) (Chronic) Hx of hyperlipidemia (Acute) BPH loc w urin obs/LUTS (Acute) Arthritis of right hip (Acute 10/13/17) Atherosclerotic cardiovascular disease (Acute) Peripheral vascular disease (Chronic) 2013: [facility] [place]: Left iliofemoral endarterectomy with patch angioplasty, Left femoral->peroneal bypass. 11/24/13 [facility] [place]: Left external iliac artery stentgraft placed, ligation left leg bypass graft fistula. HTN (hypertension) (Chronic) Atrial fibrillation (Chronic) Medical History Pacemaker Micra Pacer 09/09/23 [facility] [place] RH Atypical nevus Anxiety Elevated hemoglobin A1c Abdominal pain Pelvic pain Enlarged prostate Adrenal nodule AAA (abdominal aortic aneurysm) 02/2021: 3.9cm AAA Osteoarthritis Surgical History History of right inguinal hernia repair (~06/26/21) History of esophagogastroduodenoscopy (EGD) (~06/05/21) History of colonoscopy with polypectomy (~06/05/21) History of open heart surgery Pt states placed 4 or 5 stents post heart attack - 2020 Hx of hernia repair x5 Hx of colonoscopy History of tonsillectomy and adenoidectomy History of surgery on extremity bilat lower extremity bypass/vascular Social History Smoking/Tobacco Use Status: Former Tobacco Use Quit Date: 09/08/95 Smoking risk assessment performed?: Yes Alcohol Intake: current Alcohol Intake frequency: holidays/special occasions only Alcohol type: wine Drug use: Never Substance use type: does not use Housing: house Current gender identity: male What type of physical activity do you participate in: additional Details: 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
[2024-05-17 09:57] LABS: Abs Immature Grans 0.04 10^3/uL (0.0-0.06); Absolute Basophil Count 0.07 10^3/uL (0.0-0.2); Absolute Eosinophil Count 0.12 10^3/uL (0.0-0.7); Absolute Lymphocyte Count 1.07 10^3/uL (1.2-3.4); Absolute Neutrophil Count 4.46 10^3/uL (1.2-6.7); Basophils % 1.1 %; Eosinophils % 1.9 %; HCT 39.7 % (40.0-50.0); HGB 11.6 g/dL (13.5-17.5); Immature Grans % 0.6 %; Lymphocytes % 17.4 %; MCH 23.8 pg (27.0-33.0); MCHC 29.2 % (32.0-36.0); MCV 81 fL (80-95); MPV 9.4 fL (8.0-11.0); Monocytes % 6.5 %; Neutrophils % 72.5 %; Platelet Count 227 10^3/uL (130-400); RBC 4.88 10^6/uL (4.36-5.78); RDW 18.2 % (11.8-14.1); WBC 6.16 10^3/uL (4.4-10.8)
[2024-05-17 10:06] LABS: INR 2.4 (0.9-1.1); Prothrombin Time 22.2 sec (9.1-11.1)
[2024-05-17] MEDS: Furosemide 40 MG/4 ML VIAL IVP ×2 (10:07)
[2024-05-17 10:19] LABS: ALT 40 U/L (16-63); AST 41 U/L (15-37); Albumin 4.3 g/dL (3.4-5.0); Alkaline Phosphatase 326 U/L (46-116); Anion Gap 9.9 mmol/L (3-11); BUN 21 mg/dL (7-18); CO2 25.1 mmol/L (21.0-32.0); CREATININE 1.2 mg/dL (0.70-1.30); Calcium 9.7 mg/dL (8.5-10.1); Chloride 99 mmol/L (98-107); Estimated GFR 62.29 (mL/min/1.73m2); Glucose 144 mg/dL (74-106); Magnesium 1.9 mg/dL (1.8-2.4); NT-proBNP 990 pg/mL (<300); Potassium 3.7 mmol/L (3.5-5.1); Sodium 134 mmol/L (136-145); Total Protein 8.2 g/dL (6.4-8.2); Troponin I 57 ng/L (4-76)
[2024-05-17 11:45] LABS: Troponin I 53 ng/L (4-76)
== END 2024-05-17 12:41 | disposition home or self-care (01) ==
PROVIDERS: Emergency Provider Emergency Medicine; PCP Nurse Practitioner Family
DX: R06.02 Shortness of breath (principal); I27.20 Pulmonary hypertension, unspecified; I50.23 Acute on chronic systolic (congestive) heart failure; Z95.818 Presence of other cardiac implants and grafts; Z98.890 Other specified postprocedural states; Z86.79 Personal history of other diseases of the circulatory system
CPT/HCPCS: 80053; 93005; 96374; 99284; 71046; 83735; 83880; 84484; 85025; 85610; 93010; 99283; J1940

== ENCOUNTER → 2024-06-10 10:16 | Outpatient (BNVA) | payer MEDICARE, SELFPAY | PROVIDERS: PCP Nurse Practitioner Family; Referring Provider Nurse Practitioner Family; Visit Provider Internal Medicine Cardiovascular Disease | DX: I50.32 Chronic diastolic (congestive) heart failure (principal); I48.0 Paroxysmal atrial fibrillation; Z95.818 Presence of other cardiac implants and grafts | CPT/HCPCS: 99214 ==

== ENCOUNTER → 2024-06-23 10:49 | Outpatient (BNVA) | payer MEDICARE, SELFPAY | PROVIDERS: PCP Nurse Practitioner Family; Referring Provider Nurse Practitioner Family; Visit Provider Student in an Organized Health Care Education/Training Program | DX: I48.91 Unspecified atrial fibrillation (principal); Z45.018 Encounter for adjustment and management of other part of cardiac pacemaker | CPT/HCPCS: 93279 ==

== ENCOUNTER → 2024-07-06 10:16 | Outpatient (BNVA) | payer MEDICARE, SELFPAY | PROVIDERS: PCP Nurse Practitioner Family; Visit Provider Internal Medicine Cardiovascular Disease | DX: I50.32 Chronic diastolic (congestive) heart failure (principal); I25.10 Atherosclerotic heart disease of native coronary artery without angina pectoris; I48.0 Paroxysmal atrial fibrillation; I10 Essential (primary) hypertension; Z95.0 Presence of cardiac pacemaker | CPT/HCPCS: 99213 ==

== ENCOUNTER 2024-07-16 00:28 | Outpatient (CLI) | payer MEDICARE, SELFPAY ==
--- NOTE | 2024-07-16 14:33 | DI.US_ITS ---
APPROVED REPORT EXAM: Comprehensive 2D, Doppler, and color-flow Echocardiogram Patient Location: Out-Patient [place] Tanner: Jesusita Maldonado RDCS (AE) Indications: H/O MV annuloplasty, pacemaker Other Information Study Quality: Adequate. Technically limited study due to body habitus. Conclusion Mild concentric left ventricular hypertrophy. Ejection fraction is 50 to 55%. There are no segmenta l wall motion abnormalities Dilated right ventricle with paradoxic septal motion suggesting right ventricular volume overload. D iastolic septal flattening suggest right ventricular pressure overload Left atrium is moderately enlarged. Right atrium is severely dilated Aortic valve is sclerotic and trileaflet with trace regurgitation Patient is status post mitral clip. There is moderate mitral regurgitation There is moderate to severe tricuspid regurgitation. Estimated right ventricular systolic pressure i s 48 mmHg There is an atrial septal defect/PFO with [id number] flow Patient was in atrial fibrillation with a controlled rate throughout the study Wall motion Left Ventricle The left ventricle is normal size. Left ventricular systolic function is mildly decreased. Mild mitzi ntric left ventricular hypertrophy. There is global hypokinesis of the left ventricle. There is no ve ntricular septal defect visualized. LVEF is 50%. Right Ventricle Right ventricle is moderately dilated. Right ventricular systolic function is grossly normal. Septal motion is paradoxic Diastolic septal flattening suggest pulmonary hypertension Atria Left atrium is moderately dilated. Right atrium is severely dilated. Doppler suggests left to right i nteratrial shunt. ASD/PFO Aortic Valve The Aortic valve is sclerotic. Aortic valve is trileaflet. There is no aortic valvular stenosis. Tra ce aortic regurgitation. Mitral Valve Patient is status post MitraClip No evidence of mitral valve stenosis. Moderate mitral regurgitation. Tricuspid Valve The tricuspid valve is normal in structure. There is no tricuspid valve stenosis. Moderate to severe tricuspid regurgitation. The RVSP is 48.7_ mmHg. Pulmonic Valve The pulmonary valve is normal in structure. There is no pulmonic valvular stenosis. Trace pulmonic re gurgitation. Great Vessels The aortic root is normal in size. The ascending aorta is normal in size. Aortic arch is not well vis ualized. The IVC collapses <50% with inspiration. Pericardium There is no pericardial effusion. 2D Dimensions IVSD d PLAX 1.34 cm M: 0.6-1.2 Ao Root d 3.28 cm M: 3.1 - 3.7 LVPW d PLAX 1.30 cm M: 0.6 - 1.2 Ao Asc Diam d 3.11 cm M: 2.6 - 3.4 LVID d PLAX 4.74 cm M: 4.2 - 5.8 LVDs 3.53 cm M: 2.5 - 4.0 LV EF Teichholz 50.4 % FS 25.62 % LV EDV (Teich) 104.6 mL LV ESV (Teich) 51.9 mL Auto EF LV EDV A4C 108.6 mL LV EDV A2C 140.1 mL LV EDV BP 122.4 mL LV ESV A4C 53.9 mL LV ESV A2C 71.1 mL LV ESV BP 61.8 mL LVEF(%) A4C 50.4 % LVEF(%) A2C 49.2 % LVEF(%) BP 49.5 % LV SV A4C 54.7 ml LV SV A2C 68.9 ml LV SV BP 60.6 ml LV CO A4C 4.3 L/min LV CO A2C 5.3 L/min LV CO BP 4.8 L/min HR A4C 77.92 BPM HR A2C 77.59 BPM LV EDV Index (BP) LA Volume LA Length A4C 7.0 cm LA Length A2C 7.3 cm LA Area A4C s 32.15 cm2 LA Area A2C s 32.03 cm2 LA Vol A4C A-L 125.30 mL LA Vol A2C A-L 118.73 mL LA Vol Biplane A-L 124.8 mL LA Vol/BSA A4C A-L LA Vol/BSA A2C A-L LA Vol/BSA BP A-L 66.4 mL/m2 LA Vol A4C MOD 119.2 mL LA Vol A2C MOD 112.7 mL LA Vol BP MOD 118.5 mL RA Volume RA Area A4C 34.1 cm2 RA ESV A4C (A-L) 145.6mL RA Vol/BSA A4C A-L RA Length A4C 6.8 cm RA ESV A4C (MOD) 135.7mL LV Diastology MV E' medial 0.046 (>0.07 m/s) MV E Vmax 2.12 (0.4-1.3 m/s) MV E' lateral 0.105 (>0.1 m/s) Aortic Valve AoV Vmax 1.58 m/s LVOT Vmax 0.86 m/s AoV Peak Grad 10.0 mmHg LVOT Peak Grad 2.9 mmHg AoV Area (Vmax) 1.82 cm2 LVOT VTI 0.128 m AoV VTI 0.303 m LVOT Mean Grad 1.3 mmHg AoV Mean Ivan. 1.11 m/s LVOT SV 42.99 mL AoV Mean Grad 5.6 mmHg LVOT Diam s 2.05 cm AoV Area (VTI) 1.42 cm2 AV Regurg Peak Gr. 9.98 mmHg Velocity Ratio 0.54 Mitral Valve MV Vmax TIPS 1.92 m/s MV Mean Grad 6.4 (<2mmHg) MV PHT 101 msec MV Area PHT 2.17 cm2 MV VTI 0.477 m Pulmonary Valve PV Vmax 0.73 (0.5-1.5 m/s) RVOT Vmax 0.41 m/s PV Peak Grad 2.1 mmHg RVOT Peak Gr. 0.7 mmHg PV Mean Ivan 0.54 m/s RVOT VTI 0.100 m PV Mean Grad 1.3 mmHg RVOT Mean Gr. 0.4 mmHg Tricuspid Valve RA Pressure 3.00 mmHg TR Vmax 3.38 m/s TV S' 0.08 m/s TR Peak Grad 45.7 mmHg RVSP (TR) 48.7 mmHg
== END 2024-07-16 00:48 ==
LOC: DI 00:30
PROVIDERS: PCP Nurse Practitioner Family; Visit Provider Nurse Practitioner
DX: Z95.2 Presence of prosthetic heart valve (principal); I51.7 Cardiomegaly
CPT/HCPCS: 93306

== ENCOUNTER 2024-08-25 04:29 | Outpatient (CLI) | payer MEDICARE, SELFPAY ==
[2024-08-25 15:20] LABS: Anion Gap 11.6 mmol/L (3-11); BUN 26 mg/dL (7-18); CO2 26.4 mmol/L (21.0-32.0); CREATININE 1.4 mg/dL (0.70-1.30); Chloride 105 mmol/L (98-107); Estimated GFR 51.77 (mL/min/1.73m2); Glucose 121 mg/dL (74-106); Potassium 4.2 mmol/L (3.5-5.1); Sodium 143 mmol/L (136-145)
[2024-08-25 15:26] LABS: Calcium 9.1 mg/dL (8.5-10.1)
== END 2024-08-25 04:30 | disposition home or self-care (01) ==
LOC: LBO 04:29
PROVIDERS: PCP Nurse Practitioner Family; Visit Provider Internal Medicine Cardiovascular Disease
DX: I50.32 Chronic diastolic (congestive) heart failure (principal)
CPT/HCPCS: 36415; 80048

== ENCOUNTER → 2024-08-30 09:57 | Outpatient (BNVA) | payer MEDICARE, SELFPAY | PROVIDERS: PCP Nurse Practitioner Family; Referring Provider Nurse Practitioner Family; Visit Provider Registered Nurse | DX: I48.0 Paroxysmal atrial fibrillation (principal); I50.32 Chronic diastolic (congestive) heart failure | CPT/HCPCS: 99214 ==

== ENCOUNTER → 2024-09-29 10:58 | Outpatient (BNVA) | payer MEDICARE, SELFPAY | PROVIDERS: PCP Nurse Practitioner Family; Referring Provider Nurse Practitioner Family; Visit Provider Registered Nurse | DX: I50.32 Chronic diastolic (congestive) heart failure (principal) | CPT/HCPCS: 99214 ==

== ENCOUNTER 2024-10-06 02:44 | Outpatient (CLI) | payer MEDICARE, SELFPAY ==
--- NOTE | 2024-10-06 13:43 | DI.RAD_ITS ---
Exam(s) XR FOOT LT COMPLETE EXAM: XR FOOT LT COMPLETE CLINICAL HISTORY: Left foot pain,M79.672. TECHNIQUE: 2D digital imaging was performed of the left foot. Three images were obtained. AP, obli que and lateral views were obtained. COMPARISON: CR XR FOOT LT COMPLETE from 11/23/2020 FINDINGS: BONES: No acute fracture is present. No bony destructive lesion is seen. JOINTS: There is again seen a marked hallux valgus deformity. SOFT TISSUE: There is soft tissue swelling of the foot. No soft tissue gas is present. Extensive va scular calcification is present. IMPRESSION: 1. Hallux valgus deformity. 2. Marked soft tissue swelling of the foot. No soft tissue gas is present. DATA REPOSITORY: RADIATION DOSE DELIVERED:
--- NOTE | 2024-10-06 13:43 | DI.RAD_ITS ---
Exam(s) XR FOOT RT COMPLETE EXAM: XR FOOT RT COMPLETE CLINICAL HISTORY: Right foot pain,M79.671. TECHNIQUE: 2D digital imaging was performed of the right foot. Three images were obtained. AP, obl ique and lateral views were obtained. COMPARISON: CR XR FOOT RT COMPLETE from 11/23/2020 FINDINGS: BONES: No acute fracture is present. No bony destructive lesion is seen. JOINTS: No dislocation present. There is a marked hallux valgus deformity. There is overlapping of t he 1st 3 toes. SOFT TISSUE: Atherosclerotic vascular calcification is present. There is marked soft tissue swelling of the foot. No soft tissue gas is appreciated. IMPRESSION: 1. Marked soft tissue swelling of the foot. No soft tissue gas is appreciated. 2. Hallux valgus deformity with overlapping of the toes. 3. Extensive vascular calcification is present. DATA REPOSITORY: RADIATION DOSE DELIVERED:
== END 2024-10-06 03:04 ==
PROVIDERS: PCP Nurse Practitioner Family; Visit Provider Podiatrist
DX: M79.672 Pain in left foot (principal); M79.671 Pain in right foot
CPT/HCPCS: 73630

== ENCOUNTER → 2024-11-03 13:18 | Outpatient (BNVA) | payer MEDICARE, SELFPAY | PROVIDERS: PCP Nurse Practitioner Family; Referring Provider Nurse Practitioner Family; Visit Provider Podiatrist | DX: M79.671 Pain in right foot (principal); D49.2 Neoplasm of unspecified behavior of bone, soft tissue, and skin; M20.11 Hallux valgus (acquired), right foot; M20.12 Hallux valgus (acquired), left foot; M20.41 Other hammer toe(s) (acquired), right foot; M20.42 Other hammer toe(s) (acquired), left foot; L60.3 Nail dystrophy; B35.1 Tinea unguium; I73.89 Other specified peripheral vascular diseases; I48.0 Paroxysmal atrial fibrillation; I27.20 Pulmonary hypertension, unspecified; I71.40 Abdominal aortic aneurysm, without rupture, unspecified; Z95.0 Presence of cardiac pacemaker; R73.09 Other abnormal glucose; R23.4 Changes in skin texture | CPT/HCPCS: 17110; 20600; 64455; J0702; J1100 ==

== ENCOUNTER → 2024-12-15 12:48 | Outpatient (BNVA) | payer MEDICARE, SELFPAY | PROVIDERS: PCP Nurse Practitioner Family; Referring Provider Nurse Practitioner Family; Visit Provider Podiatrist | DX: R23.4 Changes in skin texture (principal); M79.671 Pain in right foot; D49.2 Neoplasm of unspecified behavior of bone, soft tissue, and skin; M20.11 Hallux valgus (acquired), right foot; M20.12 Hallux valgus (acquired), left foot; B35.1 Tinea unguium; L60.3 Nail dystrophy; I73.89 Other specified peripheral vascular diseases; I48.0 Paroxysmal atrial fibrillation; I27.20 Pulmonary hypertension, unspecified; I71.40 Abdominal aortic aneurysm, without rupture, unspecified; Z95.0 Presence of cardiac pacemaker; R73.09 Other abnormal glucose | CPT/HCPCS: 17110 ==

== ENCOUNTER 2025-01-05 07:53 | Outpatient (CLI) | payer MEDICARE, SELFPAY ==
--- NOTE | 2025-01-05 07:45 | RT.EKG_ITS ---
APPROVED REPORT Exam: Resting ECG Reason for Exam: afib Patient Location: O HR:115 bpm ECG Measurements Heart Rate 115 AXIS [place] [id number] P [id number] QRSd 139 QRS 45 QT 382 T 85 QTc 529 Conclusion Atrial fibrillation...V-rate 86-140, irreg A-activity Ventricular premature complex...V complex w/ short R-R interval Nonspecific intraventricular conduction delay...QRSd >115mS, not LBBB/RBBB Old anterior infarct
== END 2025-01-05 07:54 | disposition home or self-care (01) ==
LOC: DI.CARD 07:54
PROVIDERS: PCP Nurse Practitioner Family; Visit Provider Registered Nurse
DX: I48.0 Paroxysmal atrial fibrillation (principal); I21.4 Non-ST elevation (NSTEMI) myocardial infarction
CPT/HCPCS: 93010

== ENCOUNTER → 2025-01-05 09:59 | Outpatient (BNVA) | payer MEDICARE, SELFPAY | PROVIDERS: PCP Nurse Practitioner Family; Visit Provider Registered Nurse ==

== ENCOUNTER 2025-01-05 10:56 | Emergency (ER) | payer MEDICARE, SELFPAY ==
[2025-01-05] VITALS (75 sets, daily range): BP systolic 108–147; BP diastolic 66–91; PULSE 67–125; RESP 9–34; TEMP 36.4–36.6; O2SAT 97–100
--- NOTE | 2025-01-05 11:00 | RT.EKG_ITS ---
APPROVED REPORT Exam: Resting ECG Reason for Exam: Sob Patient Location: E HR:101 bpm ECG Measurements Heart Rate 101 AXIS DE [id number] P [id number] QRSd 134 QRS 112 QT 398 T 18 QTc 517 Conclusion Atrial fibrillation...? atrial activity Ventricular premature complex...V complex w/ short R-R interval Nonspecific intraventricular conduction delay...QRSd >115mS, not LBBB/RBBB Probable anteroseptal infarct, recent...Q, ST>0.15mV, T neg, V1-V2 No Occlusion [place]
--- NOTE | 2025-01-05 11:31 | W.ED.GENAD ---
Discharge Plan Disposition Patient Disposition: Home Condition: Stable Discharge Details Clinical Impression: CHF (congestive heart failure), Bilateral leg edema Primary Care Provider: KIM NUNEZ ED Provider: Maria Ines Lezama Home Meds and New Rx's Prescriptions: Continued potassium chloride 10 mEq capsule, extended release 20 meq PO BID warfarin 5 mg tablet 5 mg PO DAILY Rx Instructions: Pt takes 5 mg daily, but friday he takes 2.5 mg potassium gluconate 595 mg (99 mg) tablet 250 mg PO DAILY Patient Comments: 01/05/25 pt states he buys OTC potassium 90 mg tablet and takes 45 mg daily. RH metoprolol succinate 25 mg tablet extended release 24 hr 25 mg PO DAILY Qty: 90 3RF multivitamin Tablet 1 tab PO DAILY pantoprazole 40 mg tablet,delayed release (DR/EC) 40 mg PO DAILY Qty: 90 3RF acetaminophen [Tylenol] 325 MG tablet 325 - 650 mg PO PRN gabapentin 300 mg capsule 300 mg PO BID Patient Comments: 07/08/24 pt states he takes this dosing RH torsemide 100 mg tablet 100 mg PO DAILY Qty: 90 3RF torsemide 20 mg tablet 20 mg PO DAILY Qty: 90 3RF lorazepam 1 MG tablet 1 mg PO PRN PRN bismuth subsalicylate 262 mg tablet,chewable 1 tab PO QID Patient Comments: CHEW AND SWALLOW 2 TABLETS BY MOUTH FOUR TIMES DAILY DIRECTED FOR 14 DAYS FOR HOURS-PYLORI losartan 50 mg tablet 50 mg PO DAILY Qty: 30 0RF atorvastatin 40 mg tablet 40 mg PO DAILY Qty: 30 0RF aspirin 81 mg tablet,delayed release (DR/EC) 81 mg PO DAILY Qty: 30 0RF tamsulosin 0.4 MG capsule 0.4 mg PO DAILY Qty: 30 0RF Discharge Instructions Instructions: Heart Failure ED, Low-sodium diet Additional Instructions: You are given an extra dose of a diuretic today called Lasix. Cardiac workup is largely within normal limits. No evidence of heart attack today. Please fill the prescription for the metoprolol that the children's entertainer previously prescribed for you and begin taking that. Hold for heart rate less than 60 or blood pressure less than 90 systolic. Discussed with your children's entertainer about increasing your torsemide to 200 mg daily. No evidence of pneumonia in your chest x-ray today. Follow up with primary care provider in 3-5 days. Return to ED sooner if any worsening or concerns. Thank you for allowing us to care for you today. Referrals: KIM NUNEZ, DESIGN ASSEMBLER [Primary Care Provider] - 3 days HPI General Mode of arrival: ambulatory. Date/Time Provider Initiated Documentation: 01/05/25 11:02. Limitations to Documentation: no limitations. Information obtained by: patient, RN/MD, RN notes reviewed and old records reviewed. HPI Narrative: 79-year-old male with a past medical history of CHF presents from the cardiology office for a clinical visit due to some increased bilateral lower extremity edema 2-3+, and shortness of breath with exertion which has gotten worse. Patient takes torsemide and metoprolol which was just ordered today so he has not actually started that. Does take warfarin 5 mg does have a past medical history of a pacemaker, AAA, osteoarthritis history of open heart surgery, peripheral artery disease, A-fib, mitral valve replacement. Related Data Home Medications ?Medication ?Instructions ?Recorded ?Confirmed lorazepam 1 mg tablet 1 mg PO PRN PRN 02/08/13 01/05/25 acetaminophen 325 mg tablet 325 - 650 mg PO PRN 06/26/15 01/05/25 (Tylenol) multivitamin 1 tab PO DAILY 01/10/20 01/05/25 pantoprazole 40 mg tablet,delayed 40 mg PO DAILY #90 tabs 11/25/23 01/05/25 release bismuth subsalicylate 262 mg 1 tab PO QID 02/04/24 01/05/25 chewable tablet aspirin 81 mg tablet,delayed 81 mg PO DAILY #30 tabs 03/30/24 01/05/25 release atorvastatin 40 mg tablet 40 mg PO DAILY #30 tabs 03/30/24 01/05/25 losartan 50 mg tablet 50 mg PO DAILY #30 tabs 03/30/24 01/05/25 tamsulosin 0.4 mg capsule 0.4 mg PO DAILY #30 tab-caps 03/30/24 01/05/25 gabapentin 300 mg capsule 300 mg PO BID 07/08/24 01/05/25 potassium chloride 10 mEq 20 meq PO BID 08/30/24 01/05/25 capsule,extended release warfarin 5 mg tablet 5 mg PO DAILY 09/29/24 01/05/25 torsemide 100 mg tablet 100 mg PO DAILY #90 tabs 10/05/24 01/05/25 torsemide 20 mg tablet 20 mg PO DAILY #90 tabs 10/05/24 01/05/25 metoprolol succinate 25 mg 25 mg PO DAILY #90 tabs 01/05/25 01/05/25 tablet,extended release 24 hr potassium gluconate 595 mg (99 mg) 250 mg PO DAILY 01/05/25 01/05/25 tablet Previous Rx's ?Medication ?Instructions ?Recorded pantoprazole 40 mg tablet,delayed 40 mg PO DAILY #90 tabs 11/25/23 release aspirin 81 mg tablet,delayed 81 mg PO DAILY #30 tabs 03/30/24 release atorvastatin 40 mg tablet 40 mg PO DAILY #30 tabs 03/30/24 losartan 50 mg tablet 50 mg PO DAILY #30 tabs 03/30/24 tamsulosin 0.4 mg capsule 0.4 mg PO DAILY #30 tab-caps 03/30/24 torsemide 100 mg tablet 100 mg PO DAILY #90 tabs 10/05/24 torsemide 20 mg tablet 20 mg PO DAILY #90 tabs 10/05/24 metoprolol succinate 25 mg 25 mg PO DAILY #90 tabs 01/05/25 tablet,extended release 24 hr Allergies Allergy/AdvReac Type Severity Reaction Status Date / Time chlorpheniramine (From Allergy Intermediate rash Verified 01/05/25 11:16 Tussionex) hydrocodone (From Tussionex) Allergy Mild rash Verified 01/05/25 11:16 oxycodone Allergy Other (See Verified 01/05/25 11:16 Comment) escitalopram oxalate (From AdvReac Severe suidial Verified 01/05/25 11:16 Lexapro) ideations tramadol AdvReac Mild Other (See Verified 01/05/25 11:16 Comment) General Stated Complaint: SOB LANA: 3 Review of Systems All systems reviewed & are unremarkable except as noted in HPI and below Cardiovascular Cardiovascular: Reports pedal edema, Reports leg edema and Reports dyspnea on exertion Respiratory Respiratory: Reports dyspnea on exertion Exam Narrative Exam Narrative: Constitutional: Alert and oriented x3. Appears stated age. Normal body habitus. Head: Normocephalic, no trauma. Eyes: Pupils PERRL, Red reflex noted, EOM's intact. Eyelids symmetrical without lesions, discharge, or swelling. ENT: Bilateral TM's WNL, External ear normal to inspection, no mastoid TTP, swelling, or erythema, Nasal turbinates WNL, no nasal discharge. Normal dentition, Posterior pharynx WNL, no exudate. Chest: Irregular heart rate, positive gallop, normal S1, S2, distal pulses intact. Bilateral lower extremity pitting edema 2-3+. Resp: Lungs clear to auscultation bilaterally, no wheezes, rales, or rhonchi. Abdomen: Soft, non-distended, Normoactive bowel sounds all 4 quads. Musculoskeletal: Normal gait, Moves all 4 extremities without difficulty. Skin: No suspicious rashes or lesions. Capillary refill less than 2 sec. Neurologic: Cranial nerves II-XII intact. Alert and oriented x 3. Motor: No deficits noted. Sensory: Intact bilaterally all 4 extremities. Hematologic/Lymphatic: No ecchymosis, no lymphadenopathy. Course Vital Signs Vital signs: Vital Signs Temperature 36.6 C 01/05/25 11:11 Pulse 113 H 01/05/25 11:11 Respiratory Rate 20 01/05/25 11:11 Blood Pressure 127/83 01/05/25 11:11 Pulse Oximetry 99 01/05/25 11:11 Temperature 36.6 C 01/05/25 11:15 Pulse 113 H 01/05/25 11:15 Respiratory Rate 20 01/05/25 11:15 Blood Pressure 127/83 01/05/25 11:15 Blood Pressure Position Sitting 01/05/25 11:15 Pulse Oximetry 99 01/05/25 11:15 Oxygen Delivery Method Room Air 01/05/25 11:15 Oxygen Flow Rate 0 01/05/25 11:15 Medical Decision Making 79-year-old male with a past medical history of CHF presents from the cardiology office for a clinical visit due to some increased bilateral lower extremity edema 2-3+, and shortness of breath with exertion which has gotten worse. Patient takes torsemide and metoprolol which was just ordered today so he has not actually started that. Does take warfarin 5 mg does have a past medical history of a pacemaker, AAA, osteoarthritis history of open heart surgery, peripheral artery disease, A-fib, mitral valve replacement. proBNP is 721 which is less than his previous values, BUN 26 creatinine 1.6 GFR is 43, bilirubin 2.1 AST is 45 alk phos 411, initial troponin within normal limits. Awaiting the second troponin. Will give 20 mg of Lasix IV. And monitor for output. At this time patient's blood pressure is 143/67, heart rate at rest is 95-1 02. Expected disposition is discharge to start the metoprolol which was called in by the children's entertainer and discussed further with cardiology increasing his torsemide to 200 mg a day. Second troponin within normal limits. Is 69 which is flat. Patient has no chest pain complaints at this time. Heart rate is maintaining at 94, blood pressure 119/68. O2 sat 99% on room air. Will discharge to home with previous mentioned instructions will instruct to him start with the metoprolol as previously prescribed and follow-up with cardiology regarding the torsemide increase. Patient remained hemodynamically stable throughout the remainder of his stay. No complaints of chest pain. This text was generated using [employer] system, please disregard any oddities of phrase or misspellings. Medical Records Medical records reviewed: Yes I reviewed the patient's medical records. Imaging Data Radiologic Study: Imaging: X-Ray Radiologist's impression: XR PORTABLE CHEST AP EXAM: XR PORTABLE CHEST AP CLINICAL HISTORY: Chest pain TECHNIQUE: 2D digital imaging was performed. COMPARISON: CR XR CHEST 2V PA LATERAL from 05/17/2024 FINDINGS: Overlying monitoring leads. LUNGS: Clear. No pleural abnormality seen. HEART: Enlarged, stable. Status post CABG. AORTA: Normal diameter. BONES: Unremarkable for age. Soft tissues: Unremarkable. IMPRESSION: Cardiomegaly. No acute findings. Lab Data Lab results reviewed: Yes I reviewed the patient's lab results. Labs: Laboratory Tests Range/Units 01/05/25 12:04 WBC (4.4-10.8) 10^3/uL 6.29 RBC (4.36-5.78) 10^6/uL 4.42 Hgb (13.5-17.5) g/dL 12.1 L Hct (40.0-50.0) % 39.3 L MCV (80-95) fL 89 MCH (27.0-33.0) pg 27.4 MCHC (32.0-36.0) % 30.8 L RDW (11.8-14.1) % 21.4 H Plt Count (130-400) 10^3/uL 155 MPV (8.0-11.0) fL 9.8 Immature Gran % % 0.2 Neutrophils % % 67.9 Lymphocytes % % 18.4 Monocytes % % 9.7 Eosinophils % % 2.7 Basophils % % 1.1 Nucleated RBC % (0.0-0.3) % 0.0 Absolute Neutrophils (1.2-6.7) 10^3/uL 4.27 Absolute Lymphocytes (1.2-3.4) 10^3/uL 1.16 L Absolute Monocytes (0.1-0.8) 10^3/uL 0.61 Absolute Eosinophils (0.0-0.7) 10^3/uL 0.17 Absolute Basophils (0.0-0.2) 10^3/uL 0.07 RBC Morphology See Below Anisocytosis 2+ PT (9.1-11.1) sec 27.0 H INR (0.9-1.1) 2.9 H APTT (20.6-30.2) sec 35.1 H Sodium (136-145) mmol/L 142 Potassium (3.5-5.1) mmol/L 4.2 Chloride (98-107) mmol/L 104 Carbon Dioxide (21.0-32.0) mmol/L 26.0 Anion Gap (3-11) mmol/L 12.0 H BUN (7-18) mg/dL 26 H Creatinine (0.70-1.30) mg/dL 1.6 H Est GFR (CKD-EPI 2020) (mL/min/1.73m2) 43.83 Glucose (74-106) mg/dL 105 Calcium (8.5-10.1) mg/dL 9.5 Magnesium (1.8-2.4) mg/dL 1.9 Total Bilirubin (0.2-1.0) mg/dL 2.1 H AST (15-37) U/L 45 H ALT (16-63) U/L 36 Alkaline Phosphatase (46-116) U/L 411 H Troponin I (<or=76) ng/L 69 NT-Pro-B Natriuret Pep (<300) pg/mL 721 H Total Protein (6.4-8.2) g/dL 7.6 Albumin (3.4-5.0) g/dL 4.1 Quality:SDOH Health Related Social Needs: No Data to Display PFSH All Active Problems (Updated 01/05/25 @ 14:23 by Maria Ines Lezama NP) Bilateral leg edema (Acute) Parakeratosis (Acute) PAD (peripheral artery disease) (Acute) Nail dystrophy (Acute) Onychomycosis (Acute) Hammertoe, bilateral (Acute) Bone tumor (Acute) Status post implantation of mitral valve leaflet clip (Acute) [facility] [place] 09/04/23 RH Pulmonary hypertension (Acute) severe by [facility] [place] echo 10/30/23 RH Status post mitral valve annuloplasty (Acute) (HFpEF) heart failure with preserved ejection fraction (Acute) Acute non-ST elevation myocardial infarction (NSTEMI) (Acute) Acute on chronic HFrEF (heart failure with reduced ejection fraction) (Acute) Elevated troponin level (Acute) CHF (congestive heart failure) (Chronic) Melanoma (Acute) Skin lesion of cheek (Acute) Internal derangement of left knee (Acute) Left ventricular aneurysm (Acute) Hallux valgus (acquired), left foot (Acute) Hallux valgus (acquired), right foot (Acute) Hip pain, right (Acute) RLQ abdominal pain (Acute) Abnormal CT of the abdomen (Acute) Hiatal hernia with GERD (Acute) Diverticula of colon (Acute) pandiverticula - severe diverticula that carry all the way over to the cecum Recurrent right inguinal hernia (Acute) Adenomatous colon polyp (Acute) GERD (gastroesophageal reflux disease) (Chronic) Hx of hyperlipidemia (Acute) BPH loc w urin obs/LUTS (Acute) Arthritis of right hip (Acute 10/13/17) Atherosclerotic cardiovascular disease (Acute) Peripheral vascular disease (Chronic) 2013: [facility] [place]: Left iliofemoral endarterectomy with patch angioplasty, Left femoral->peroneal bypass. 11/24/13 [facility] [place]: Left external iliac artery stentgraft placed, ligation left leg bypass graft fistula. HTN (hypertension) (Chronic) Atrial fibrillation (Chronic) Medical History Pacemaker Micra Pacer 09/09/23 [facility] [place] RH Atypical nevus Anxiety Elevated hemoglobin A1c Abdominal pain Pelvic pain Enlarged prostate Adrenal nodule AAA (abdominal aortic aneurysm) 02/2021: 3.9cm AAA Osteoarthritis Surgical History History of right inguinal hernia repair (~06/26/21) History of esophagogastroduodenoscopy (EGD) (~06/05/21) History of colonoscopy with polypectomy (~06/05/21) History of open heart surgery Pt states placed 4 or 5 stents post heart attack - 2020 Hx of hernia repair x5 Hx of colonoscopy History of tonsillectomy and adenoidectomy History of surgery on extremity bilat lower extremity bypass/vascular Social History Smoking/Tobacco Use Status: Former Tobacco Use Quit Date: 09/08/95 Smoking risk assessment performed?: Yes Alcohol Intake: current Alcohol Intake frequency: holidays/special occasions only Alcohol type: wine Drug use: Never Substance use type: does not use Housing: house Current gender identity: male What type of physical activity do you participate in: additional Details: 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[employer]), PT Do you feel safe at home: Yes Do you feel safe in your relationship?: Yes PAWSS Have you Been Recently Intoxicated or Drunk Within the Last 30 days?: No Have you Ever Experienced Previous Episodes of Alcohol Withdrawal?: No Have you ever Experienced Withdrawal Seizures?: No Have you ever Experienced Delirium Tremens(DT)s?: No Have you ever undergone Alcohol Rehabilitation Treatment (i.e, inpt ot outpatient treatment programs)?: No Have you ever Experienced Blackouts?: No Have you ever Combined Alcohol with other Downers within the last 90 days?: No Have you ever Combined Alcohol with any other Substance of Abuse during the last 90 days?: No Positive Blood Alcohol level on Presentation? [PCS.BAL]: No Evidence of Increased Autonomic Activity (i.e. HR>120, tremor, sweating, agitation, nausea)?: No Result: 0
[2025-01-05 12:19] LABS: Abs Immature Grans 0.01 10^3/uL (0.0-0.06); Absolute Basophil Count 0.07 10^3/uL (0.0-0.2); Absolute Eosinophil Count 0.17 10^3/uL (0.0-0.7); Absolute Lymphocyte Count 1.16 10^3/uL (1.2-3.4); Absolute Monocyte Count 0.61 10^3/uL (0.1-0.8); Absolute Neutrophil Count 4.27 10^3/uL (1.2-6.7); Basophils % 1.1 %; Eosinophils % 2.7 %; HCT 39.3 % (40.0-50.0); HGB 12.1 g/dL (13.5-17.5); Immature Grans % 0.2 %; Lymphocytes % 18.4 %; MCH 27.4 pg (27.0-33.0); MCHC 30.8 % (32.0-36.0); MCV 89 fL (80-95); MPV 9.8 fL (8.0-11.0); Monocytes % 9.7 %; Neutrophils % 67.9 %; Platelet Count 155 10^3/uL (130-400); RBC 4.42 10^6/uL (4.36-5.78); RDW 21.4 % (11.8-14.1); RDW-SD 70.2 fL; WBC 6.29 10^3/uL (4.4-10.8)
--- NOTE | 2025-01-05 12:33 | DI.RAD_ITS ---
Exam(s) XR PORTABLE CHEST AP EXAM: XR PORTABLE CHEST AP CLINICAL HISTORY: Chest pain TECHNIQUE: 2D digital imaging was performed. COMPARISON: CR XR CHEST 2V PA LATERAL from 05/17/2024 FINDINGS: Overlying monitoring leads. LUNGS: Clear. No pleural abnormality seen. HEART: Enlarged, stable. Status post CABG. AORTA: Normal diameter. BONES: Unremarkable for age. Soft tissues: Unremarkable. IMPRESSION: Cardiomegaly. No acute findings. DATA REPOSITORY: RADIATION DOSE DELIVERED:
[2025-01-05 12:38] LABS: ALT 36 U/L (16-63); AST 45 U/L (15-37); Albumin 4.1 g/dL (3.4-5.0); Alkaline Phosphatase 411 U/L (46-116); Anisocytosis 2+; BUN 26 mg/dL (7-18); Bilirubin, Total 2.1 mg/dL (0.2-1.0); CREATININE 1.6 mg/dL (0.70-1.30); Calcium 9.5 mg/dL (8.5-10.1); Chloride 104 mmol/L (98-107); Diff Comment RBC Morph Reviewed; Estimated GFR 43.83 (mL/min/1.73m2); Glucose 105 mg/dL (74-106); Magnesium 1.9 mg/dL (1.8-2.4); Potassium 4.2 mmol/L (3.5-5.1); Sodium 142 mmol/L (136-145); Total Protein 7.6 g/dL (6.4-8.2); Troponin I 69 ng/L (<or=76)
[2025-01-05 12:51] LABS: INR 2.9 (0.9-1.1); PTT Activated 35.1 sec (20.6-30.2)
[2025-01-05 13:00] LABS: NT-proBNP 721 pg/mL (<300)
[2025-01-05] MEDS: Furosemide 20 MG/2 ML VIAL IVP (13:55)
[2025-01-05 14:06] LABS: Troponin I 69 ng/L (<or=76)
== END 2025-01-05 15:03 | disposition home or self-care (01) ==
PROVIDERS: Emergency Provider Registered Nurse Emergency; PCP Nurse Practitioner Family
DX: R60.9 Edema, unspecified (principal); I11.0 Hypertensive heart disease with heart failure; I50.32 Chronic diastolic (congestive) heart failure; I25.10 Atherosclerotic heart disease of native coronary artery without angina pectoris; I25.2 Old myocardial infarction; I48.91 Unspecified atrial fibrillation; I73.9 Peripheral vascular disease, unspecified; Z95.0 Presence of cardiac pacemaker; Z95.2 Presence of prosthetic heart valve; Z79.01 Long term (current) use of anticoagulants; Z79.82 Long term (current) use of aspirin; Z87.891 Personal history of nicotine dependence
CPT/HCPCS: 36415; 80053; 93005; 96374; 99215; 99285; 71045; 83735; 83880; 84484; 85025; 85610; 85730; 93010; J1940

== ENCOUNTER 2025-01-12 17:09 | Outpatient (REF) | payer MEDICARE, SELFPAY ==
[2025-01-12 19:21] LABS: ALT 31 U/L (16-63); AST 34 U/L (15-37); Albumin 3.9 g/dL (3.4-5.0); Alkaline Phosphatase 354 U/L (46-116); Anion Gap 8.4 mmol/L (3-11); BUN 25 mg/dL (7-18); Bilirubin, Total 1.9 mg/dL (0.2-1.0); CO2 27.6 mmol/L (21.0-32.0); CREATININE 1.4 mg/dL (0.70-1.30); Calcium 9.3 mg/dL (8.5-10.1); Chloride 103 mmol/L (98-107); Estimated GFR 51.45 (mL/min/1.73m2); Glucose 130 mg/dL (74-106); Magnesium 1.8 mg/dL (1.8-2.4); Sodium 139 mmol/L (136-145); Total Protein 6.8 g/dL (6.4-8.2)
== END 2025-01-12 17:10 | disposition home or self-care (01) ==
LOC: NCHCN 17:09
PROVIDERS: PCP Nurse Practitioner Family; Visit Provider Nurse Practitioner Family
DX: I50.9 Heart failure, unspecified (principal)
CPT/HCPCS: 80053; 83735

== ENCOUNTER → 2025-02-02 13:32 | Outpatient (BNVA) | payer MEDICARE, SELFPAY | PROVIDERS: PCP Nurse Practitioner Family; Referring Provider Nurse Practitioner Family; Visit Provider Podiatrist | DX: L60.3 Nail dystrophy (principal); B35.1 Tinea unguium; I73.89 Other specified peripheral vascular diseases; I48.0 Paroxysmal atrial fibrillation; I27.20 Pulmonary hypertension, unspecified; I71.40 Abdominal aortic aneurysm, without rupture, unspecified; Z95.0 Presence of cardiac pacemaker; R73.09 Other abnormal glucose; R23.4 Changes in skin texture; R60.0 Localized edema; R09.89 Other specified symptoms and signs involving the circulatory and respiratory systems; I83.93 Asymptomatic varicose veins of bilateral lower extremities; R25.2 Cramp and spasm; R23.8 Other skin changes; L65.9 Nonscarring hair loss, unspecified; L60.2 Onychogryphosis; L60.8 Other nail disorders; L85.8 Other specified epidermal thickening | CPT/HCPCS: 11719 ==

== ENCOUNTER 2025-03-14 03:43 | Outpatient (CLI) | payer MEDICARE, SELFPAY ==
[2025-03-15 10:36] LABS: PSA, Diagnostic 0.6 ng/mL (<=6.5)
== END 2025-03-14 03:44 | disposition home or self-care (01) ==
LOC: LBO 03:43
PROVIDERS: PCP Nurse Practitioner Family; Visit Provider Urology
DX: N13.8 Other obstructive and reflux uropathy (principal); N40.1 Benign prostatic hyperplasia with lower urinary tract symptoms
CPT/HCPCS: 36415; 84153

== ENCOUNTER → 2025-03-15 14:08 | Outpatient (BNVA) | payer MEDICARE, SELFPAY | PROVIDERS: PCP Nurse Practitioner Family; Visit Provider Urology | DX: N40.1 Benign prostatic hyperplasia with lower urinary tract symptoms (principal); R10.2 Pelvic and perineal pain; R39.9 Unspecified symptoms and signs involving the genitourinary system | CPT/HCPCS: 99213; 51798 ==

== ENCOUNTER 2025-04-15 12:44 | Emergency (ER) | payer MEDICARE, SELFPAY ==
[2025-04-15] VITALS (9 sets, daily range): BP systolic 110–152; BP diastolic 53–94; PULSE 64–101; RESP 10–18; TEMP 36.6; O2SAT 96–100
--- NOTE | 2025-04-15 12:45 | RT.EKG_ITS ---
APPROVED REPORT Exam: Resting ECG Reason for Exam: chest pain Patient Location: E HR:71 bpm ECG Measurements Heart Rate 71 AXIS FL [id number] P [id number] QRSd 138 QRS 128 QT 431 T 206 QTc 470 Conclusion Atrial fibrillation...V-rate 56- 70, irreg A-activity Ventricular premature complex...V complex w/ short R-R interval Nonspecific intraventricular conduction delay...QRSd >115mS, not LBBB/RBBB Anterolateral infarct, old...Q>40mS, abnrm ST-T, V3-V6,I,aVL No Occlusion MO
[2025-04-15 13:31] LABS: Abs Immature Grans 0.02 10^3/uL (0.0-0.06); HCT 37.0 % (40.0-50.0); HGB 11.4 g/dL (13.5-17.5); Immature Grans % 0.4 %; MCH 26.9 pg (27.0-33.0); MCHC 30.8 % (32.0-36.0); MCV 87 fL (80-95); MPV 11.1 fL (8.0-11.0); Platelet Count 167 10^3/uL (130-400); RBC 4.24 10^6/uL (4.36-5.78); RDW 19.0 % (11.8-14.1); RDW-SD 59.9 fL; WBC 5.14 10^3/uL (4.4-10.8)
[2025-04-15 13:45] LABS: INR 3.1 (0.9-1.1); PTT Activated 36.3 sec (20.6-30.2); Prothrombin Time 29.1 sec (9.1-11.1)
[2025-04-15 13:52] LABS: ALT 28 U/L (16-63); AST 31 U/L (15-37); Albumin 3.7 g/dL (3.4-5.0); Alkaline Phosphatase 343 U/L (46-116); Anion Gap 8.7 mmol/L (3-11); BUN 36 mg/dL (7-18); Bilirubin, Total 2.1 mg/dL (0.2-1.0); CO2 26.3 mmol/L (21.0-32.0); Calcium 9.2 mg/dL (8.5-10.1); Chloride 103 mmol/L (98-107); Estimated GFR 43.83 (mL/min/1.73m2); Glucose 127 mg/dL (74-106); Lipase 54 U/L (<78); Magnesium 2.0 mg/dL (1.8-2.4); NT-proBNP 976 pg/mL (<300); Potassium 4.0 mmol/L (3.5-5.1); Sodium 138 mmol/L (136-145); Total Protein 7.0 g/dL (6.4-8.2); Troponin I 64 ng/L (<or=76)
[2025-04-15 14:25] LABS: D-Dimer 928 ng/mlFEU (<500)
--- NOTE | 2025-04-15 14:28 | W.ED.GENAD ---
Discharge Plan Discharge Details Chief Complaint: Chest Pain Primary Care Provider: KIM NUNEZ ED Provider: Fran Worrell Home Meds and New Rx's Prescriptions: No Action potassium chloride 10 mEq capsule, extended release 20 meq PO BID warfarin 5 mg tablet 5 mg PO DAILY Rx Instructions: Pt takes 5 mg daily, but friday he takes 2.5 mg metoprolol succinate 25 mg tablet extended release 24 hr 25 mg PO DAILY Qty: 90 3RF potassium gluconate 595 mg (99 mg) tablet 45 mg PO DAILY Patient Comments: 01/05/25 pt states he buys OTC potassium 90 mg tablet and takes 45 mg daily. RH multivitamin Tablet 1 tab PO DAILY pantoprazole 40 mg tablet,delayed release (DR/EC) 40 mg PO DAILY Qty: 90 3RF acetaminophen [Tylenol] 325 MG tablet 325 - 650 mg PO PRN gabapentin 300 mg capsule 300 mg PO BID Patient Comments: 07/08/24 pt states he takes this dosing RH torsemide 20 mg tablet 20 mg PO DAILY Qty: 90 3RF torsemide 100 mg tablet 100 mg PO DAILY Qty: 90 3RF lorazepam 1 MG tablet 1 mg PO PRN PRN losartan 50 mg tablet 50 mg PO DAILY Qty: 30 0RF atorvastatin 40 mg tablet 40 mg PO DAILY Qty: 30 0RF aspirin 81 mg tablet,delayed release (DR/EC) 81 mg PO DAILY Qty: 30 0RF tamsulosin 0.4 MG capsule 0.4 mg PO DAILY Qty: 30 0RF HPI General Date/Time Provider Initiated Documentation: 04/15/25 13:04. HPI Narrative: 79 year-old male presents to ED today by POV/ambulating with a chief complaint of chest pain, onset around 0400 this morning, sharp and worse with deep breathing. Quality described as sharp L sided chest pain, no radiation to hemoptysis, nausea/vomiting, sweating, endorses some dizziness lately when moving around the home, with shortness of breath with activity. Severity is described as 3-6/10. Palliating factors include nothing specific attempted. Provoking factors include possibly worse with ambulating. Events leading up to the incident/Associated Symptoms: Patient has a history of CABGx1, known AAA. Patient is anticoagulated on warfarin. Related Data Home Medications ?Medication ?Instructions ?Recorded ?Confirmed lorazepam 1 mg tablet 1 mg PO PRN PRN 02/08/13 04/15/25 acetaminophen 325 mg tablet 325 - 650 mg PO PRN 06/26/15 04/15/25 (Tylenol) multivitamin 1 tab PO DAILY 01/10/20 04/15/25 pantoprazole 40 mg tablet,delayed 40 mg PO DAILY #90 tabs 11/25/23 04/15/25 release aspirin 81 mg tablet,delayed 81 mg PO DAILY #30 tabs 03/30/24 04/15/25 release atorvastatin 40 mg tablet 40 mg PO DAILY #30 tabs 03/30/24 04/15/25 losartan 50 mg tablet 50 mg PO DAILY #30 tabs 03/30/24 04/15/25 tamsulosin 0.4 mg capsule 0.4 mg PO DAILY #30 tab-caps 03/30/24 04/15/25 gabapentin 300 mg capsule 300 mg PO BID 07/08/24 04/15/25 potassium chloride 10 mEq 20 meq PO BID 08/30/24 04/15/25 capsule,extended release warfarin 5 mg tablet 5 mg PO DAILY 09/29/24 04/15/25 metoprolol succinate 25 mg 25 mg PO DAILY #90 tabs 01/05/25 04/15/25 tablet,extended release 24 hr potassium gluconate 595 mg (99 mg) 45 mg PO DAILY 03/15/25 04/15/25 tablet torsemide 20 mg tablet 20 mg PO DAILY #90 tabs 04/11/25 04/15/25 torsemide 100 mg tablet 100 mg PO DAILY #90 tabs 04/12/25 04/15/25 Previous Rx's ?Medication ?Instructions ?Recorded pantoprazole 40 mg tablet,delayed 40 mg PO DAILY #90 tabs 11/25/23 release aspirin 81 mg tablet,delayed 81 mg PO DAILY #30 tabs 03/30/24 release atorvastatin 40 mg tablet 40 mg PO DAILY #30 tabs 03/30/24 losartan 50 mg tablet 50 mg PO DAILY #30 tabs 03/30/24 tamsulosin 0.4 mg capsule 0.4 mg PO DAILY #30 tab-caps 03/30/24 metoprolol succinate 25 mg 25 mg PO DAILY #90 tabs 01/05/25 tablet,extended release 24 hr torsemide 20 mg tablet 20 mg PO DAILY #90 tabs 04/11/25 torsemide 100 mg tablet 100 mg PO DAILY #90 tabs 04/12/25 Allergies Allergy/AdvReac Type Severity Reaction Status Date / Time chlorpheniramine (From Allergy Intermediate rash Verified 04/15/25 12:49 Tussionex) hydrocodone (From Tussionex) Allergy Mild rash Verified 04/15/25 12:49 oxycodone Allergy Other (See Verified 04/15/25 12:49 Comment) escitalopram oxalate (From AdvReac Severe suidial Verified 04/15/25 12:49 Lexapro) ideations tramadol AdvReac Mild Other (See Verified 04/15/25 12:49 Comment) General Stated Complaint: Chest Pain LANA: 3 Review of Systems All systems reviewed & are unremarkable except as noted in HPI and below Exam Narrative Exam Narrative: GENERAL APPEARANCE: Well-nourished, non-toxic, awake and alert, atraumatic, no acute distress. SKIN: Warm, pink, dry, intact, without rashes/lesions/ulcerations. HEAD: Normocephalic, atraumatic, normal hair distribution for gender/age. EYES: Normal conjunctiva, no exudates on lids/lashes. ENT: Nares patent, no circumoral cyanosis, no facial swelling NECK: Supple, trachea midline, painless cervical ROM. LUNGS/CHEST: Lungs CTA bilaterally- no rhonchi/rales/wheezes diffusely, non-labored respirations, normal A/P diameter, symmetrical expansion, no chest wall deformity HEART (CV/PV): Irregular rate and rhythm with 1/6 systolic murmur best heard at LSB, no peripheral edema, no JVD. ABDOMEN: Soft, non-distended, no guarding. MSK: Normal ROM, no swelling/deformity to bilateral UEs or LEs, moving all extremities without weakness, no cyanosis, spine midline without tenderness, normal curvature. NEURO: Mental Status AAOx4 - alert to person, place, time, events No facial droop, no forehead involvement. Motor: No focal weakness - strength 5/5 in bilateral UEs and LEs, proximal and distal, symmetric. Sensory: sensation intact to light touch globally. Gait normal: patient ambulated without ataxia into ED room. PSYCH: euthymic, cooperative, pleasant, appropriate speech Course Vital Signs Vital signs: Vital Signs Temperature 36.6 C 04/15/25 12:45 Pulse 69 04/15/25 12:45 Respiratory Rate 18 04/15/25 12:45 Blood Pressure 125/79 04/15/25 12:45 Pulse Oximetry 96 04/15/25 12:45 Temperature 36.6 C 04/15/25 12:45 Temperature Source Tympanic 04/15/25 12:45 Pulse 65 04/15/25 14:00 Pulse 73 04/15/25 14:00 Respiratory Rate 11 L 04/15/25 14:00 Respiratory Effort Normal, Non-Labored 04/15/25 13:02 Respiratory Depth Normal 04/15/25 13:02 Respiratory Pattern Normal 04/15/25 13:02 Blood Pressure 110/62 04/15/25 14:00 Blood Pressure Mean 79 04/15/25 14:00 Pulse Oximetry 96 04/15/25 14:00 Lab/Test Results Lab/Test Results: Laboratory Tests Range/Units 04/15/25 13:21 WBC (4.4-10.8) 10^3/uL 5.14 RBC (4.36-5.78) 10^6/uL 4.24 L Hgb (13.5-17.5) g/dL 11.4 L Hct (40.0-50.0) % 37.0 L MCV (80-95) fL 87 MCH (27.0-33.0) pg 26.9 L MCHC (32.0-36.0) % 30.8 L RDW (11.8-14.1) % 19.0 H Plt Count (130-400) 10^3/uL 167 MPV (8.0-11.0) fL 11.1 H Immature Gran % % 0.4 Neutrophils % % 67.8 Lymphocytes % % 15.6 Monocytes % % 11.5 Eosinophils % % 3.9 Basophils % % 0.8 Nucleated RBC % (0.0-0.3) % 0.0 Absolute Neutrophils (1.2-6.7) 10^3/uL 3.49 Absolute Lymphocytes (1.2-3.4) 10^3/uL 0.80 L Absolute Monocytes (0.1-0.8) 10^3/uL 0.59 Absolute Eosinophils (0.0-0.7) 10^3/uL 0.20 Absolute Basophils (0.0-0.2) 10^3/uL 0.04 PT (9.1-11.1) sec 29.1 H INR (0.9-1.1) 3.1 H APTT (20.6-30.2) sec 36.3 H Sodium (136-145) mmol/L 138 Potassium (3.5-5.1) mmol/L 4.0 Chloride (98-107) mmol/L 103 Carbon Dioxide (21.0-32.0) mmol/L 26.3 Anion Gap (3-11) mmol/L 8.7 BUN (7-18) mg/dL 36 H Creatinine (0.70-1.30) mg/dL 1.6 H Est GFR (CKD-EPI 2020) (mL/min/1.73m2) 43.83 Glucose (74-106) mg/dL 127 H Calcium (8.5-10.1) mg/dL 9.2 Magnesium (1.8-2.4) mg/dL 2.0 Total Bilirubin (0.2-1.0) mg/dL 2.1 H AST (15-37) U/L 31 ALT (16-63) U/L 28 Alkaline Phosphatase (46-116) U/L 343 H Troponin I (<or=76) ng/L 64 NT-Pro-B Natriuret Pep (<300) pg/mL 976 H Total Protein (6.4-8.2) g/dL 7.0 Albumin (3.4-5.0) g/dL 3.7 Lipase (<78) U/L 54 Medical Decision Making This dictation utilizes [id number] dictation software and may contain unedited grammatical errors. 79 year-old male presents to ED today by POV/ambulating with a chief complaint of chest pain, onset around 0400 this morning, sharp and worse with deep breathing. Quality described as sharp L sided chest pain, no radiation to hemoptysis, nausea/vomiting, sweating, endorses some dizziness lately when moving around the home, with shortness of breath with activity. Severity is described as 3-6/10. Palliating factors include nothing specific attempted. Provoking factors include possibly worse with ambulating. Events leading up to the incident/Associated Symptoms: Patient has a history of CABGx1, known AAA. Patients' medical history: Peripheral artery disease, history of CABGx1 mitral valve leaflet clip, pulmonary hypertension, heart failure with preserved ejection fraction, history of NSTEMI, GERD, hypertension, atrial fibrillation, abdominal aortic aneurysm. Family and social history: noncontributory, lives at home, independent at baseline with ADLs. Pertinent exam findings / vital signs include irregularly irregular rhythm with systolic harsh murmur best heard at right sternal border, benign abdomen, neuro intact, no wheezing or rales in lungs. Differential / pathologies of concern include ACS, embolism pneumothorax, pleurisy, costochondritis. Diagnostic studies of: - CBC, CMP, D-dimer, PT/PTT, magnesium, BNP, serial troponins, lipase, EKG, CT chest PE study. - CBC shows no leukocytosis, shows a mild anemia of 11.4 without shift or other actionable abnormality - Coagulation studies are where they should be with INR 3.1 on warfarin - D-dimer [address] chest PE study - CMP shows no actionable abnormality with a chronically elevated creatinine around baseline - Magnesium within normal limits - Lipase negative - BNP is 976, nonspecific but possibly related to with A-fib and CHF but renal source is considered - Initial troponin is 64, 1 hour repeat 62 - EKG shows rate controlled atrial flutter relation at 71 bpm with no signs of new ischemia, and shows old anterolateral infarct, consistent with priors - CTA Chest pending at time of sign-out Interventions of: -324mg ASA CH, 500mL IVF NS ED Course/Assessment/Plan: 79-year-old male presents with left-sided chest pain that awoke him from rest at 0 400, has a cardiac history of NSTEMI, CHF, AF - trop's stable, D-dimer 928, pending CTA Chest. Heart Score Moderate, discuss with patient his goals of ECHO/stress timing for obs vs outpatient. Signed out to oncoming provider Holley Cabezas NP at shift-change pending CTA. Disposition of Chest Pain of Uncertain Etiology. Patient verbalized understanding of the plan and return to ED criteria and engaged in shared decision making. Medical Records Medical records reviewed: Yes I reviewed the patient's medical records. Imaging Data Radiologic Study: Attestation: I personally reviewed and interpreted this imaging study as follows: Imaging: CT Scan My impression: Pending at sign-out. Lab Data Lab results reviewed: Yes I reviewed the patient's lab results. Labs: Laboratory Tests Range/Units 08/08/25 13:21 WBC (4.4-10.8) 10^3/uL 5.14 RBC (4.36-5.78) 10^6/uL 4.24 L Hgb (13.5-17.5) g/dL 11.4 L Hct (40.0-50.0) % 37.0 L MCV (80-95) fL 87 MCH (27.0-33.0) pg 26.9 L MCHC (32.0-36.0) % 30.8 L RDW (11.8-14.1) % 19.0 H Plt Count (130-400) 10^3/uL 167 MPV (8.0-11.0) fL 11.1 H Immature Gran % % 0.4 Neutrophils % % 67.8 Lymphocytes % % 15.6 Monocytes % % 11.5 Eosinophils % % 3.9 Basophils % % 0.8 Nucleated RBC % (0.0-0.3) % 0.0 Absolute Neutrophils (1.2-6.7) 10^3/uL 3.49 Absolute Lymphocytes (1.2-3.4) 10^3/uL 0.80 L Absolute Monocytes (0.1-0.8) 10^3/uL 0.59 Absolute Eosinophils (0.0-0.7) 10^3/uL 0.20 Absolute Basophils (0.0-0.2) 10^3/uL 0.04 PT (9.1-11.1) sec 29.1 H INR (0.9-1.1) 3.1 H APTT (20.6-30.2) sec 36.3 H D-Dimer (<500) ng/mlFEU 928 H Sodium (136-145) mmol/L 138 Potassium (3.5-5.1) mmol/L 4.0 Chloride (98-107) mmol/L 103 Carbon Dioxide (21.0-32.0) mmol/L 26.3 Anion Gap (3-11) mmol/L 8.7 BUN (7-18) mg/dL 36 H Creatinine (0.70-1.30) mg/dL 1.6 H Est GFR (CKD-EPI 2020) (mL/min/1.73m2) 43.83 Glucose (74-106) mg/dL 127 H Calcium (8.5-10.1) mg/dL 9.2 Magnesium (1.8-2.4) mg/dL 2.0 Total Bilirubin (0.2-1.0) mg/dL 2.1 H AST (15-37) U/L 31 ALT (16-63) U/L 28 Alkaline Phosphatase (46-116) U/L 343 H Troponin I (<or=76) ng/L 64 NT-Pro-B Natriuret Pep (<300) pg/mL 976 H Total Protein (6.4-8.2) g/dL 7.0 Albumin (3.4-5.0) g/dL 3.7 Lipase (<78) U/L 54 PFSH All Active Problems (Updated 02/05/25 @ 00:00 by KELLY STEELE) Parakeratosis (Acute) PAD (peripheral artery disease) (Acute) Nail dystrophy (Acute) Onychomycosis (Acute) Hammertoe, bilateral (Acute) Bone tumor (Acute) Status post [place] of mitral valve leaflet [place]Ac[place] [facility] [place] Pulmonary hypertension (Acute) severe [place] [facility] [place] RH Status post mitral valve annuloplasty (Acute) (HFpEF) heart failure with preserved ejection fraction (Acute) Acute non-ST elevation myocardial infarction (NSTEMI) (Acute) Acute on chronic HFrEF (heart failure with reduced ejection fraction) (Acute) Elevated troponin level (Acute) CHF (congestive heart failure) (Chronic) Melanoma (Acute) Skin lesion of cheek (Acute) Internal derangement of left knee (Acute) Left ventricular aneurysm (Acute) Hallux valgus (acquired), left foot (Acute) Hallux valgus (acquired), right foot (Acute) Hip pain, right (Acute) RLQ abdominal pain (Acute) Abnormal CT of the abdomen (Acute) Hiatal hernia with GERD (Acute) Diverticula of colon (Acute) pandiverticula - severe diverticula that carry all the way over to the cecum Recurrent right inguinal hernia (Acute) Adenomatous colon polyp (Acute) GERD (gastroesophageal reflux disease) (Chronic) Hx of hyperlipidemia (Acute) BPH loc w urin obs/LUTS (Acute) Arthritis of right hip (Acute 10/13/17) Atherosclerotic cardiovascular disease (Acute) Peripheral vascular disease (Chronic) [place] [facility] [place] iliofemoral [place]arte[place] with patch angioplasty, Left femoral->peroneal bypass. [place]24/[place] [facility] [place] external iliac artery stentgraft placed, ligation left leg bypass graft fistula. HTN (hypertension) (Chronic) Atrial fibrillation (Chronic) Medical History Pacemaker Micra Pacer 09/09/23 [facility] [place] Atypical nevus Anxiety Elevated hemoglobin A1c Abdominal pain Pelvic pain Enlarged prostate Adrenal nodule AAA (abdominal aortic aneurysm) 02/2021: 3.9cm AAA Osteoarthritis Surgical History History of right inguinal hernia repair (~06/26/21) History of esophagogastroduodenoscopy (EGD) (~06/05/21) History of colonoscopy with polypectomy (~06/05/21) History of open heart surgery Pt states placed 4 or 5 stents post heart attack - 2020 Hx of hernia repair x5 Hx of colonoscopy History of tonsillectomy and adenoidectomy History of surgery on extremity bilat lower extremity bypass/vascular Social History Smoking/Tobacco Use Status: Former Tobacco Use Quit Date: 09/08/95 Smoking risk assessment performed?: Yes Alcohol Intake: current Alcohol Intake frequency: holidays/special occasions only Alcohol type: wine Drug use: Never Substance use type: does not use Housing: house Current gender identity: male What type of physical activity do you participate in: additional Details: 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
--- NOTE | 2025-04-15 14:30 | DI.CT_ITS ---
Exam(s) CT CHEST PE CTA EXAM: CT CHEST PE CTA CLINICAL HISTORY: elev d-dimer, L sided chest pain. TECHNIQUE: Imaging Protocol: Axial CT angiography was performed with multi- slice acquisition and multi-planar and/or 3D reconstructions. Lung Computer Aided Detection (CAD) was utilized. CONTRAST MATERIAL: Intravenous: Omnipaque 350 contrast volume:100 mL COMPARISON: CT CT ABDOMEN PELVIS WO/W from 03/02/[address] THORAX ABD/PEL CTA from 08/28/[address] THORAX ABD/PEL CTA from 08/28/[address] CHEST PE CTA from 09/20/2023 CR XR PORTABLE CHEST AP from 01/05/2025 FINDINGS: Tracheobronchial tree: Patent where visualized. No bronchiectasis. Pulmonary parenchyma: There are peripheral interstitial changes bilaterally. This may reflect pulmonary fibrosis. There is no focal consolidating infiltrate present. There are no pulmonary nodules seen. There is a calcified granuloma seen in the right middle lobe. Pulmonary Arteries: No evidence of filling defect to suggest pulmonary emboli. Mediastinum and Yina: No dominant adenopathy or fluid collection. The esophagus is unremarkable. Visualized thyroid gland: Unremarkable. Pleura: No effusion or pneumothorax. Heart: Cardiomegaly. There is 3 vessel coronary artery calcification present. No pericardial effusion. Aorta: The ascending thoracic aorta measures 3.9 x 3.7 cm. Atherosclerotic calcification is present. Due to the timing of the bolus, the thoracic aorta is not adequately opacified. Upper abdomen: There is colonic diverticulosis present. There is contrast seen in the IVC which can reflect some degree of heart failure. Soft tissues: Unremarkable. Bones: Within normal limits for the patient's age.Sternal wires are in place. IMPRESSION: 1. There is no evidence of a pulmonary embolism. 2. No acute pulmonary process. RADIATION DOSE DELIVERED: 114.95mGy.cm Total DLP DATA REPOSITORY: All CT scans at this facility are submitted to the National Radiology Data Registry (NRDR) Dose Index Registry (DIR) with the [employer] (ACR). RADIATION OPTIMIZATION: All CT scans at this facility use at least one of these dose optimization techniques: automated exposure control; mA and/or kV adjustment per patient size (includes targeted exams where dose is matched to clinical indication); or iterative reconstruction.
[2025-04-15 15:22] LABS: Troponin I 62 ng/L (<or=76)
[2025-04-15] MEDS: Aspirin 81 MG CHEW 324 MG CH (15:24)
--- NOTE | 2025-04-15 15:38 | W.EDPROG ---
Date of service: 04/15/25 Time of Service: 15:30 Medical Decision Making Handoff report received form Carrillo VALENTINE, daytime KATIE. Please see his note for full HPI, ROS, lab interpretation. Pt signed out with CTA pending. In short, Sam is a 79-year-old male with history of HTN, HLD, A-fib on anticoagulation with warfarin, HFrEF, NSTEMI, CABG x 1 and mitral valve leaflet clip, AAA, pHTN, hiatal hernia with GERD, BPH, ASCVD, PVD/PAD who presented to the emergency department for evaluation of sudden onset of pleuritic left-sided chest pain since this morning. Workup overall has been reassuring, only notable for D-dimer elevated at 928. Troponins flat. CBC and CMP reassuring; anemia,kidney function, elevated bilirubin/alk phosp, unchanged from baseline. BNP elevated but consistent with previous. HEART score moderate, indicating moderate risk of MACE. Sam is reporting that he is feeling comfortable, has only had 1 episode of pleuritic chest discomfort since arrival to the ED, says he has had previous episodes of chest discomfort in the past but no clear diagnosis. CTA negative, no acute findings noted. Overall workup today reassuring, including cardiac workup. Unclear etiology of chest discomfort. Recommend close follow-up with cardiology for further outpatient testing such as echo and stress test, as this is not available over the weekend. Reviewed discharge instruction with patient, including red flags indicate need for return to emergency care. He voices agreement with plan of care. Imaging Data Radiologic Study: Radiologist's impression: Exam(s) CT CHEST PE CTA EXAM: CT CHEST PE CTA CLINICAL HISTORY: elev d-dimer, L sided chest pain. TECHNIQUE: Imaging Protocol: Axial CT angiography was performed with multi-slice acquisition and multi-planar and/or 3D reconstructions. Lung Computer Aided Detection (CAD) was utilized. CONTRAST MATERIAL: Intravenous: Omnipaque 350 contrast volume:100 mL COMPARISON: CT CT ABDOMEN PELVIS WO/W from 03/02/[address] THORAX ABD/PEL CTA from 08/28/[address] THORAX ABD/PEL CTA from 08/28/[address] CHEST PE CTA from 09/20/2023 CR XR PORTABLE CHEST AP from 01/05/2025 FINDINGS: Tracheobronchial tree: Patent where visualized. No bronchiectasis. Pulmonary parenchyma: There are peripheral interstitial changes bilaterally. This may reflect pulmonary fibrosis. There is no focal consolidating infiltrate present. There are no pulmonary nodules seen. There is a calcified granuloma seen in the right middle lobe. Pulmonary Arteries: No evidence of filling defect to suggest pulmonary emboli. Mediastinum and Yina: No dominant adenopathy or fluid collection. The esophagus is unremarkable. Visualized thyroid gland: Unremarkable. Pleura: No effusion or pneumothorax. Heart: Cardiomegaly. There is 3 vessel coronary artery calcification present. No pericardial effusion. Aorta: The ascending thoracic aorta measures 3.9 x 3.7 cm. Atherosclerotic calcification is present. Due to the timing of the bolus, the thoracic aorta is not adequately opacified. Upper abdomen: There is colonic diverticulosis present. There is contrast seen in the IVC which can reflect some degree of heart failure. Soft tissues: Unremarkable. Bones: Within normal limits for the patient's age.Sternal wires are in place. IMPRESSION: 1. There is no evidence of a pulmonary embolism. 2. No acute pulmonary process. Discharge Plan Disposition Patient Disposition: Home Discharge Details Clinical Impression: Intermittent left-sided chest pain Primary Care Provider: KIM NUNEZ ED Provider: Holley Champion Home Meds and New Rx's Prescriptions: No Action potassium chloride 10 mEq capsule, extended release 20 meq PO BID warfarin 5 mg tablet 5 mg PO DAILY Rx Instructions: Pt takes 5 mg daily, but friday he takes 2.5 mg metoprolol succinate 25 mg tablet extended release 24 hr 25 mg PO DAILY Qty: 90 3RF potassium gluconate 595 mg (99 mg) tablet 45 mg PO DAILY Patient Comments: 01/05/25 pt states he buys OTC potassium 90 mg tablet and takes 45 mg daily. RH multivitamin Tablet 1 tab PO DAILY pantoprazole 40 mg tablet,delayed release (DR/EC) 40 mg PO DAILY Qty: 90 3RF acetaminophen [Tylenol] 325 MG tablet 325 - 650 mg PO PRN gabapentin 300 mg capsule 300 mg PO BID Patient Comments: 07/08/24 pt states he takes this dosing RH torsemide 20 mg tablet 20 mg PO DAILY Qty: 90 3RF torsemide 100 mg tablet 100 mg PO DAILY Qty: 90 3RF lorazepam 1 MG tablet 1 mg PO PRN PRN losartan 50 mg tablet 50 mg PO DAILY Qty: 30 0RF atorvastatin 40 mg tablet 40 mg PO DAILY Qty: 30 0RF aspirin 81 mg tablet,delayed release (DR/EC) 81 mg PO DAILY Qty: 30 0RF tamsulosin 0.4 MG capsule 0.4 mg PO DAILY Qty: 30 0RF Discharge Instructions Additional Instructions: 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 Outpatient imaging such as echo and stress test are most likely indicated to further look into your chest discomfort. I recommend calling your primary care provider to schedule follow-up Your workup today was reassuring. There were no acute abnormalities noted on chest CT, EKG, or blood work. Continue taking your cardiac medications as prescribed. Return to emergency care if develop new chest pains, difficulty breathing, episodes of feeling like going to pass out, nausea/vomiting, weakness, or if you are very worried and need to be rechecked again immediately Referrals: [facility] [Provider Group] KIM NUNEZ NP [Primary Care Provider, Medicine]
[2025-04-15] MEDS: Omnipaque 350 MG/ML 100 ML BTL IJ (15:51)
[2025-04-15] MEDS: Normal Saline 500 ML IV (16:02)
== END 2025-04-15 16:58 | disposition home or self-care (01) ==
PROVIDERS: Physician Assistant; Emergency Provider Nurse Practitioner Family; PCP Nurse Practitioner Family
DX: R07.9 Chest pain, unspecified (principal)
CPT/HCPCS: 99285; 99284; 00123; 71275; 80053; 83690; 93005; 96360; 83735; 83880; 84484; 85025; 85379; 85610; 85730; 93010; J3490

== ENCOUNTER 2025-04-19 20:53 | Emergency (ER) | payer MEDICARE, SELFPAY ==
[2025-04-19] VITALS (33 sets, daily range): BP systolic 98–140; BP diastolic 54–85; PULSE 50–61; RESP 10–23; TEMP 36.4; O2SAT 90–97
--- NOTE | 2025-04-19 20:45 | RT.EKG_ITS ---
APPROVED REPORT Exam: Resting ECG Reason for Exam: SOB Patient Location: E HR:57 bpm ECG Measurements Heart Rate 57 AXIS WV [id number] P [id number] QRSd 139 QRS 107 QT 490 T -22 QTc 476 Conclusion Afib/flut and V-paced complexes...other complexes, A-0 Nonspecific intraventricular conduction delay...QRSd >115mS, not LBBB/RBBB BRADYCARDIA W/ IRREGULAR RATE
--- NOTE | 2025-04-19 20:59 | W.ED.GENAD ---
Discharge Plan Disposition Patient Disposition: Transfer-Acute Inpatient Care Specific Acute Inpt Facility: [facility] Condition: Critical Discharge Details Clinical Impression: Heart failure, ACC/AHA stage C with decreased ejection fraction, Acute renal failure (ARF), Acute hyperkalemia Primary Care Provider: KIM NUNEZ ED Provider: Greg Barnett Home Meds and New Rx's Prescriptions: Continued potassium chloride 10 mEq capsule, extended release 20 meq PO BID warfarin 5 mg tablet 5 mg PO DAILY Rx Instructions: Pt takes 5 mg daily, but friday he takes 2.5 mg metoprolol succinate 25 mg tablet extended release 24 hr 25 mg PO DAILY Qty: 90 3RF potassium gluconate 595 mg (99 mg) tablet 45 mg PO PRN Patient Comments: 01/05/25 pt states he buys OTC potassium 90 mg tablet and takes 45 mg daily. RH multivitamin Tablet 1 tab PO DAILY pantoprazole 40 mg tablet,delayed release (DR/EC) 40 mg PO DAILY Qty: 90 3RF acetaminophen [Tylenol] 325 MG tablet 325 - 650 mg PO PRN gabapentin 300 mg capsule 300 mg PO BID Patient Comments: 07/08/24 pt states he takes this dosing RH torsemide 20 mg tablet 20 mg PO DAILY Qty: 90 3RF torsemide 100 mg tablet 100 mg PO DAILY Qty: 90 3RF lorazepam 1 MG tablet 1 mg PO PRN PRN losartan 50 mg tablet 50 mg PO DAILY Qty: 30 0RF atorvastatin 40 mg tablet 40 mg PO DAILY Qty: 30 0RF aspirin 81 mg tablet,delayed release (DR/EC) 81 mg PO DAILY Qty: 30 0RF tamsulosin 0.4 MG capsule 0.4 mg PO DAILY Qty: 30 0RF HPI General Date/Time Provider Initiated Documentation: 04/19/25 20:59. HPI Narrative: Patient presents emergency department complaining of increased shortness of breath for the last 4 days with orthopnea and also dizziness with a feeling that he is going to pass out. Reports that he weighs himself daily and he states he has been gaining weight lower extremity swelling Related Data Home Medications ?Medication ?Instructions ?Recorded ?Confirmed lorazepam 1 mg tablet 1 mg PO PRN PRN 02/08/13 04/19/25 acetaminophen 325 mg tablet 325 - 650 mg PO PRN 06/26/15 04/19/25 (Tylenol) multivitamin 1 tab PO DAILY 01/10/20 04/19/25 pantoprazole 40 mg tablet,delayed 40 mg PO DAILY #90 tabs 11/25/23 04/19/25 release aspirin 81 mg tablet,delayed 81 mg PO DAILY #30 tabs 03/30/24 04/19/25 release atorvastatin 40 mg tablet 40 mg PO DAILY #30 tabs 03/30/24 04/19/25 losartan 50 mg tablet 50 mg PO DAILY #30 tabs 03/30/24 04/19/25 tamsulosin 0.4 mg capsule 0.4 mg PO DAILY #30 tab-caps 03/30/24 04/19/25 gabapentin 300 mg capsule 300 mg PO BID 07/08/24 04/19/25 potassium chloride 10 mEq 20 meq PO BID 08/30/24 04/19/25 capsule,extended release warfarin 5 mg tablet 5 mg PO DAILY 09/29/24 04/19/25 metoprolol succinate 25 mg 25 mg PO DAILY #90 tabs 01/05/25 04/19/25 tablet,extended release 24 hr potassium gluconate 595 mg (99 mg) 45 mg PO PRN 03/15/25 04/19/25 tablet torsemide 20 mg tablet 20 mg PO DAILY #90 tabs 04/11/25 04/19/25 torsemide 100 mg tablet 100 mg PO DAILY #90 tabs 04/12/25 04/19/25 Previous Rx's ?Medication ?Instructions ?Recorded pantoprazole 40 mg tablet,delayed 40 mg PO DAILY #90 tabs 11/25/23 release aspirin 81 mg tablet,delayed 81 mg PO DAILY #30 tabs 03/30/24 release atorvastatin 40 mg tablet 40 mg PO DAILY #30 tabs 03/30/24 losartan 50 mg tablet 50 mg PO DAILY #30 tabs 03/30/24 tamsulosin 0.4 mg capsule 0.4 mg PO DAILY #30 tab-caps 03/30/24 metoprolol succinate 25 mg 25 mg PO DAILY #90 tabs 01/05/25 tablet,extended release 24 hr torsemide 20 mg tablet 20 mg PO DAILY #90 tabs 04/11/25 torsemide 100 mg tablet 100 mg PO DAILY #90 tabs 04/12/25 Allergies Allergy/AdvReac Type Severity Reaction Status Date / Time chlorpheniramine (From Allergy Intermediate rash Verified 04/19/25 21:15 Tussionex) hydrocodone (From Tussionex) Allergy Mild rash Verified 04/19/25 21:15 oxycodone Allergy Other (See Verified 04/19/25 21:15 Comment) escitalopram oxalate (From AdvReac Severe suidial Verified 04/19/25 21:15 Lexapro) ideations tramadol AdvReac Mild Other (See Verified 04/19/25 21:15 Comment) General LANA: 3 Review of Systems Narrative: Review of Systems: Constitutional: No fevers, chills, sweats Eye: No recent visual problems ENT: No ear pain, nasal congestion, sore throat Cardiovascular: No Chest pain, palpitations, Gastrointestinal: No nausea, vomiting, diarrhea Genitourinary: No hematuria Dread/Lymph: Negative for bruising tendency, swollen lymph glands Endocrine: Negative for excessive thirst, excessive hunger Musculoskeletal: No back pain, neck pain, joint pain, muscle pain, decreased range of motion Integumentary: No rash, pruritus, abrasions Neurologic: Alert & oriented X 4 Psychiatric: No anxiety, depression Exam Narrative Exam Narrative: Exam; vitals signs as reported above normal Constitutional; In no acute distress, afebrile General: cooperative, healthy appearing, comfortable and no acute distress HEENT: Head: normal to inspection, no palpable skull fracture and normocephalic atraumatic Eyes: : appearance normal, both eyes and all related structures EOM intact bilaterally Pupils: PERRL : conjunctiva normal Direct ophthalmoscopy: normal light reflex, normal conjunctiva, normal visual acuity Ears: Normal TM, normal external canal Nose: normal no rhinorreha Neck 1 cm JVD supple non tender Neck: normal visual inspection, full ROM and no lymphadenopathy Chest: normal inspection of the chest Respiratory : normal respiratory effort and able to speak in complete sentences bilateral rales up to the scapula Cardio : Bradycardic irregular normal heart sounds S1 and S2 no murmurs, gallops, or rubs GI : normal to inspection, normal bowel sounds, soft, non tender, non distended, no organomegaly Back/Spine/ no CVA tenderness Thoracic/Lumbar Spine: no tenderness or deformities Skin no rashes or lesions Neuro: patient alert oriented x 4 and no meningeal signs, Cranial Nerves: CN's II-XI intact bilaterally, Cognition: normal cognition, Speech: speech normal, Gait: normal gait, Depp tendon reflexes normal 2+ muscle strength 5/5 bilaterally Extremities, 3+ pitting edema : normal Rectal: Medical Decision Making MDM: Summary: Patient presents emergency department complaining of feeling dizzy and more short of breath. He was here in the emergency department 4 days ago for the same reason he was worked up to rule out a pulmonary embolus and had a CT angiogram with contrast which was negative and he was sent home to for follow-up. Patient has a history of mitral valve replacement A-fib on Coumadin and a pacemaker and also had an echocardiogram in 2019 for and has diagnosis of heart failure with preserved ejection fraction HFpEF. He came today and labs were obtained which shows an elevation of the BUN to creatinine from 4 days ago where his creatinine was 1.7 is now is 3.5, EKG shows bradycardia arrhythmia with a heart rate of 57 and PVCs, labs also show mild hyperkalemia at 5.3 hyponatremia and a little elevated beta nitrated peptide at 1253. Chest x-ray shows mild vascular congestion, and a [id number] ultrasound echocardiogram that shows severely reduced ejection fraction with a plump noncompressible IVC. I have called the hospitalist who requested call cardiology at [facility] who I spoke with the configuration release manager who did not have a chance to look at the [id number] ultrasound echo images. The question is if this patient has progressively developed worsening heart failure with now decreased ejection fraction causing renal dysfunction or the patient developed renal failure causing fluid retention hyperkalemia bradycardia arrhythmia and fluid overload. The configuration release manager wants the patient received 100 mg of IV Lasix despite the fact that his renal function has deteriorated and he is accepted the patient at [facility] for further management. Here in the emergency department the patient received IV calcium gluconate and Kayexalate to reduce the hyperkalemia. Patient now is hemodynamically stable with a pressure of 170 heart rate in the 60s with oxygen saturation of 95% on 2 L nasal cannula. Troponins are negative. He will be transferred to [facility] cardiology service and he has been accepted by Dr. Viktoria Altamirano. Data Review Analysis All the data on this patient was reviewed by me including laboratory and imaging studies as well as bedside studies performed by me Independent review of Studies Imaging POCUS and chest x-ray as described above Lab: Labs show mild anemia hyponatremia hyperkalemia and renal failure Risk Stratification: High risk patient for deterioration due to a cardiomyopathy and renal failure who will be sent to [facility] Differential Diagnosis: 1. Heart failure with reduced ejection fraction 2. Acute on chronic renal failure 3. Hyperkalemia 4. 5. Consultants: I consulted with [facility]'s configuration release manager Shared disposition: Patient understands the disposition and he understands and will follow according Impression: Medical Records Medical records reviewed: Yes I reviewed the patient's medical records. Lab Data Lab results reviewed: Yes I reviewed the patient's lab results. ECG Data Attestation: I personally reviewed and interpreted this ECG (s) as follows: Prior ECG tracings: available for review Interpretation: A fib with PVCs with heart rate of [address]-T changes Critical Care Time Critical Care Time Critical Care Time: Yes Total Critical Care Time: 35 Attestation: 35 minutes of critical care due to possible impending cardiovascular collapsibility and renal failure [facility] All Active Problems (Updated 04/19/25 @ 23:37 by Greg Barnett MD) Acute hyperkalemia (Acute) Acute renal failure (ARF) (Acute) Heart failure, ACC/AHA stage C with decreased ejection fraction (Acute) Intermittent left-sided chest pain (Acute) Parakeratosis (Acute) PAD (peripheral artery disease) (Acute) Nail dystrophy (Acute) Onychomycosis (Acute) Hammertoe, bilateral (Acute) Bone tumor (Acute) Status post implantation of mitral valve leaflet clip (Acute) [facility] 09/04/23 RH Pulmonary hypertension (Acute) severe by [facility] echo 10/30/23 RH Status post mitral valve annuloplasty (Acute) (HFpEF) heart failure with preserved ejection fraction (Acute) Acute non-ST elevation myocardial infarction (NSTEMI) (Acute) Acute on chronic HFrEF (heart failure with reduced ejection fraction) (Acute) Elevated troponin level (Acute) CHF (congestive heart failure) (Chronic) Melanoma (Acute) Skin lesion of cheek (Acute) Internal derangement of left knee (Acute) Left ventricular aneurysm (Acute) Hallux valgus (acquired), left foot (Acute) Hallux valgus (acquired), right foot (Acute) Hip pain, right (Acute) RLQ abdominal pain (Acute) Abnormal CT of the abdomen (Acute) Hiatal hernia with GERD (Acute) Diverticula of colon (Acute) pandiverticula - severe diverticula that carry all the way over to the cecum Recurrent right inguinal hernia (Acute) Adenomatous colon polyp (Acute) GERD (gastroesophageal reflux disease) (Chronic) Hx of hyperlipidemia (Acute) BPH loc w urin obs/LUTS (Acute) Arthritis of right hip (Acute 10/13/17) Atherosclerotic cardiovascular disease (Acute) Peripheral vascular disease (Chronic) 2013: [facility]: Left iliofemoral endarterectomy with patch angioplasty, Left femoral->peroneal bypass. 11/24/13 [facility]: Left external iliac artery stentgraft placed, ligation left leg bypass graft fistula. HTN (hypertension) (Chronic) Atrial fibrillation (Chronic) Medical History Pacemaker Micra Pacer 09/09/23 [facility] RH Atypical nevus Anxiety Elevated hemoglobin A1c Abdominal pain Pelvic pain Enlarged prostate Adrenal nodule AAA (abdominal aortic aneurysm) 02/2021: 3.9cm AAA Osteoarthritis Surgical History History of right inguinal hernia repair (~06/26/21) History of esophagogastroduodenoscopy (EGD) (~06/05/21) History of colonoscopy with polypectomy (~06/05/21) History of open heart surgery Pt states placed 4 or 5 stents post heart attack - 2020 Hx of hernia repair x5 Hx of colonoscopy History of tonsillectomy and adenoidectomy History of surgery on extremity bilat lower extremity bypass/vascular Social History Smoking/Tobacco Use Status: Former Tobacco Use Quit Date: 09/08/95 Smoking risk assessment performed?: Yes Alcohol Intake: current Alcohol Intake frequency: holidays/special occasions only Alcohol type: wine Drug use: Never Substance use type: does not use Housing: house Current gender identity: male What type of physical activity do you participate in: additional Details: 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[employer]), PT Do you feel safe at home: Yes Do you feel safe in your relationship?: Yes POCUS Exam (ED) Limited Cardiac Exam DATE OF EXAM: 04/19/25 TIME OF EXAM: 23:17 PROVIDER THAT PERFORMED THE STUDY: Greg Barnett IS THIS A REPEAT EXAM DURING THIS ENCOUNTER: no REASON FOR EXAM: Dyspnea and Evaluation of LV function VISUALIZED STRUCTURES: Four Chambers, Left atrium, Left ventricle, LVOT, Right atrium, Right ventricle, Aortic valve, Mitral valve, Interventricular septum and IVC VIEW OBTAINED: Apical 4-Chamber, Parasternal long-axis, Parasternal short-axis and Subxiphoid PERTINENT FINDINGS/IMPRESSION: LV dysfunction (Severely depressed left ventricular function) :severe and Plethoric IVC DIFFERENTIAL DIAGNOSES: Global hypokinesis. Arrhythmia no pericardial effusion Exam complete
--- NOTE | 2025-04-19 21:00 | DI.RAD_ITS ---
Exam(s) XR PORTABLE CHEST AP EXAM: XR PORTABLE CHEST AP CLINICAL HISTORY: dyspnea TECHNIQUE: 2D digital imaging was performed of the chest. One image was obtained. An AP view was obtained. COMPARISON: CR XR PORTABLE CHEST AP from 01/05/[address] CHEST PE CTA from 04/15/2025 FINDINGS: MEDIASTINUM: Normal. HEART: Cardiomegaly. Status post CABG. PULMONARY VASCULATURE: The pulmonary vasculature appears prominent but stable. LUNGS: There are no focal consolidating infiltrates present. There is mild interstitial prominence in the lungs which may represent edema. PLEURAL SPACE: No pleural effusion or pneumothorax. BONE:Within normal limits for the patient's age. OTHER FINDINGS:Normal. IMPRESSION: 1. Cardiomegaly with mild pulmonary venous congestion and interstitial prominence which may represent edema. The findings may represent fluid overload. Please correlate clinically. 2. The preliminary [facility] report was reviewed. DATA REPOSITORY: RADIATION DOSE DELIVERED:
[2025-04-19 21:20] LABS: Abs Immature Grans 0.01 10^3/uL (0.0-0.06); HCT 37.6 % (40.0-50.0); HGB 11.7 g/dL (13.5-17.5); Immature Grans % 0.1 %; MCH 27.0 pg (27.0-33.0); MCHC 31.1 % (32.0-36.0); MCV 87 fL (80-95); MPV 12.2 fL (8.0-11.0); Platelet Count 138 10^3/uL (130-400); RBC 4.34 10^6/uL (4.36-5.78); RDW 19.0 % (11.8-14.1); RDW-SD 59.4 fL; WBC 6.67 10^3/uL (4.4-10.8)
[2025-04-19 21:34] LABS: INR 3.8 (0.9-1.1); Prothrombin Time 34.9 sec (9.1-11.1)
[2025-04-19 21:46] LABS: ALT 30 U/L (16-63); AST 33 U/L (15-37); Albumin 3.9 g/dL (3.4-5.0); Alkaline Phosphatase 355 U/L (46-116); Anion Gap 12.6 mmol/L (3-11); BUN 53 mg/dL (7-18); Bilirubin, Total 1.6 mg/dL (0.2-1.0); CO2 21.4 mmol/L (21.0-32.0); Calcium 8.8 mg/dL (8.5-10.1); Chloride 98 mmol/L (98-107); Estimated GFR 16.03 (mL/min/1.73m2); Glucose 143 mg/dL (74-106); Magnesium 2.3 mg/dL (1.8-2.4); NT-proBNP 1263 pg/mL (<300); Potassium 5.3 mmol/L (3.5-5.1); Sodium 132 mmol/L (136-145); Total Protein 7.3 g/dL (6.4-8.2); Troponin I 64 ng/L (<or=76)
--- NOTE | 2025-04-19 22:06 | DI.[facility]_ITS ---
PROCEDURE INFORMATION: Exam: XR Chest Exam date and time: 04/19/2025 9:27 PM Age: 79 years old Clinical indication: Dyspnea TECHNIQUE: Imaging protocol: Radiologic exam of the chest. Views: 1 view. COMPARISON: CT CHEST PE CTA 04/15/2025 3:47 PM FINDINGS: Lungs: No focal pulmonary consolidation is seen. There is mild hazy indistinctness of the pulmonary vascular margins suspicious for mild interstitial pulmonary edema. Pleural spaces: No pleural effusion or pneumothorax is seen. Heart/Mediastinum: The heart is enlarged. There are median sternotomy wires and scattered surgical clips with an appearance suggesting prior CABG. There appears to be a leadless pacemaker projecting over the right ventricle. There are unusual clips projecting over the left ventricle in the expected location of the mitral valve. Correlation with procedure history is recommended. Bones/joints: The visualized bony structures appear grossly intact. IMPRESSION: Possible mild interstitial pulmonary edema. No focal pulmonary consolidation. Dictated and Authenticated by: Mitul Park MD. Orderin Anibal Garza MD
[2025-04-19] MEDS: Calcium Gluconate 4.65 MEQ/10 ML VIAL 4.65 MG IVP (22:08)
[2025-04-19 22:56] LABS: Troponin I 61 ng/L (<or=76)
--- NOTE | 2025-04-19 23:15 | NUR.NOTE ---
assumed care of PTNursing Note:
[2025-04-20] VITALS: PULSE 58; RESP 14
[2025-04-20 00:04] VITALS: BP 120/59; PULSE 55; PULSE 56; RESP 12; O2SAT 92
[2025-04-20 00:15] VITALS: BP 120/59; PULSE 56; RESP 18; O2SAT 92
== END 2025-04-20 00:19 | disposition short-term general hospital (02) ==
PROVIDERS: Emergency Provider Emergency Medicine Emergency Medical Services; PCP Nurse Practitioner Family
DX: R06.02 Shortness of breath (principal); I50.20 Unspecified systolic (congestive) heart failure; N17.9 Acute kidney failure, unspecified; E87.5 Hyperkalemia
CPT/HCPCS: 99291; 96374; 80053; 93005; 93308; 71045; 83735; 83880; 84484; 85025; 85610; 93010; J0612

== ENCOUNTER → 2025-05-05 11:02 | Outpatient (BNVA) | payer MEDICARE, SELFPAY | PROVIDERS: PCP Nurse Practitioner Family; Referring Provider Nurse Practitioner Family; Visit Provider Internal Medicine Cardiovascular Disease | DX: I50.20 Unspecified systolic (congestive) heart failure (principal); I25.10 Atherosclerotic heart disease of native coronary artery without angina pectoris; Z98.890 Other specified postprocedural states; Z95.818 Presence of other cardiac implants and grafts; N18.9 Chronic kidney disease, unspecified | CPT/HCPCS: 99214 ==

== ENCOUNTER 2025-05-10 15:10 | Outpatient (REF) | payer MEDICARE, SELFPAY ==
[2025-05-10 19:24] LABS: Anion Gap 11.7 mmol/L (3-11); BUN 40 mg/dL (7-18); CO2 24.3 mmol/L (21.0-32.0); Calcium 9.1 mg/dL (8.5-10.1); Chloride 103 mmol/L (98-107); Estimated GFR 51.45 (mL/min/1.73m2); Glucose 102 mg/dL (74-106); Potassium 4.4 mmol/L (3.5-5.1); Sodium 139 mmol/L (136-145)
== END 2025-05-10 15:11 | disposition home or self-care (01) ==
LOC: NCHCN 15:10
PROVIDERS: PCP Nurse Practitioner Family; Visit Provider Nurse Practitioner Family
DX: N18.9 Chronic kidney disease, unspecified (principal)
CPT/HCPCS: 80048

== ENCOUNTER → 2025-06-03 09:58 | Outpatient (BNVA) | payer MEDICARE, SELFPAY | PROVIDERS: PCP Nurse Practitioner Family; Referring Provider Nurse Practitioner Family; Visit Provider Internal Medicine Cardiovascular Disease | DX: I50.32 Chronic diastolic (congestive) heart failure (principal); I48.0 Paroxysmal atrial fibrillation; Z95.0 Presence of cardiac pacemaker; Z98.890 Other specified postprocedural states; Z95.818 Presence of other cardiac implants and grafts | CPT/HCPCS: 99214 ==

== ENCOUNTER → 2025-07-26 10:26 | Outpatient (BNVA) | payer MEDICARE, SELFPAY | PROVIDERS: PCP Nurse Practitioner Family; Referring Provider Nurse Practitioner Family; Visit Provider Internal Medicine Cardiovascular Disease | DX: I50.32 Chronic diastolic (congestive) heart failure (principal); I25.10 Atherosclerotic heart disease of native coronary artery without angina pectoris; I48.0 Paroxysmal atrial fibrillation; Z98.890 Other specified postprocedural states; Z95.818 Presence of other cardiac implants and grafts; Z79.01 Long term (current) use of anticoagulants | CPT/HCPCS: 99214 ==

== ENCOUNTER → 2025-07-27 09:19 | Outpatient (BNVA) | payer MEDICARE, SELFPAY | PROVIDERS: PCP Nurse Practitioner Family; Visit Provider Registered Nurse | DX: I50.32 Chronic diastolic (congestive) heart failure (principal); Z45.018 Encounter for adjustment and management of other part of cardiac pacemaker | CPT/HCPCS: 93279 ==

== ENCOUNTER 2025-07-27 09:51 | Outpatient (CLI) | payer MEDICARE, SELFPAY ==
[2025-07-27 10:59] LABS: Anion Gap 9.9 mmol/L (3-11); BUN 26 mg/dL (9-23); CO2 24.1 mmol/L (20.0-31.0); Calcium 9.4 mg/dL (8.3-10.6); Chloride 109 mmol/L (98-107); Glucose 146 mg/dL (74-106); Potassium 4.0 mmol/L (3.5-5.1); Sodium 143 mmol/L (136-145)
== END 2025-07-27 09:52 | disposition home or self-care (01) ==
LOC: LBO 09:51
PROVIDERS: PCP Nurse Practitioner Family; Visit Provider Internal Medicine Cardiovascular Disease
DX: I50.82 Biventricular heart failure (principal)
CPT/HCPCS: 36415; 80048; 93279